=== PATIENT | male | born 1965 | race Caucasian/White ===

== ENCOUNTER → 2020-06-24 07:11 | Outpatient (CLI) | payer MEDICAID, SELFPAY ==
--- NOTE | 2020-06-24 07:34 | RAD_ITS ---
STUDY: X-RAY - LUMBAR SPINE REASON FOR EXAM: Male, 55 years old. low back pain, bilateral leg pain -- NKI TECHNIQUE: 3 view(s) of the lumbar spine were obtained. COMPARISON: None FINDINGS: Normal lumbar lordosis. There is no substantial scoliosis. There is a normal alignment of the vertebrae. Normal vertebral bodies and endplates. Moderate disc narrowing at L4-5 and L5-S1. Minimal narrowing at upper lumbar levels. Negative for substantial spondylitic endplate changes. The soft tissue structures are unremarkable. RAD/Lumbar Spine 2 or 3 Views IMPRESSION: Normal alignment of the lumbar spine without fracture, osteolytic or blastic bone lesion. Mild to moderate degenerative disc narrowing without extensive spondylitic endplate changes. Electronically Signed: Guillermina Alcala MD at 17:32 EDT , Service support ,
--- NOTE | 2020-06-24 07:35 | EKG12_ITS ---
Test Reason : ARRITYMIA Blood Pressure : / mmHG Vent. Rate : 106 BPM Atrial Rate : 106 BPM P-R Int : 160 ms QRS Dur : 108 ms QT Int : 372 ms P-R-T Axes : 063 058 069 degrees QTc Int : 494 ms Sinus tachycardia with frequent Premature ventricular complexes Incomplete left bundle branch block Borderline ECG Confirmed by TRENT DIAZ, AZUL ([id number]), industrial editor ALEX GIL ([id number]) on 06/29/2020 1:57:53 PM Referred By: Sarai [facility] Confirmed By:AZUL NEWMAN MD
[2020-06-24 08:21] LABS: Absolute Lymphocyte Count 2.49 X10^3/uL (0.83-4.51); Absolute Neutrophil Count 2.9 X10^3/uL (2.0-7.7); Basophil# 0.05 X10^3/uL; Basophil% 0.8 % (0-1); Eosinophil# 0.07 X10^3/uL; Eosinophils% 1.1 % (0-5); Hematocrit 46.8 % (40-54); Hemoglobin 16.3 g/dL (13.0-16.5); Lymphocyte # 2.49 X10^3/ul (4.0); Lymphocyte % 39.3 % (19-41); Mean Corp Hgb Conc 34.8 g/dL (32-36); Mean Corpuscular Hgb 30.4 pg (27.0-32.0); Mean Corpuscular Volume 87.2 fL (80-94); Mean Platelet Vol. 11.5 fl (6.2-12.0); Monocyte# 0.81 X10^3/uL; Monocyte% 12.8 % (0-10); NRBC Flagged by Analyzer 0 % (0-5); Neutrophil % 45.7 % (47-70); Platelet Count 278 K/mm3 (150-450); RBC Distribution Width CV 12.3 % (11.6-14.6); RBC Distribution Width SD 39.1 fl (35.1-43.9); Red Blood Count 5.37 M/mm3 (4.6-6.2); White Blood Count 6.3 K/mm3 (4.4-11.0)
[2020-06-24 08:36] LABS: Hemoglobin A1c 11.7 % (3.8-5.6)
[2020-06-24 08:40] LABS: Vitamin D,25 Hydroxy 36.9 ng/mL
[2020-06-24 08:46] LABS: ALB/GLOB Ratio 1.1 RATIO (0.9-2.4); AST(SGOT) 16 U/L (15-37); Alanine Aminotransfer ALT/SGPT 25 U/L (16-61); Albumin, Serum 3.8 g/dL (3.2-5.0); Alkaline Phosphatase 78 U/L (45-117); Anion Gap 5 (5-15); BUN 10 mg/dL (7-18); BUN/Creat Ratio 13.4 RATIO (10-20); Calcium,Total 8.8 mg/dL (8.5-10.1); Chloride 96 mmol/L (98-107); Cholesterol 208 mg/dL (200); Creatinine, Serum 0.74 mg/dL (0.70-1.30); EST Glomerular Filtration Rate 116 mL/min (>60); Est Glom Filt Rate - Afr Amer 140 mL/min (>60); Globulin 3.5 g/dL (2.2-4.2); Glucose 297 mg/dL (74-106); High Density Lipoprotein 50 mg/dL; Potassium 3.7 mmol/L (3.5-5.1); Protein, Total 7.3 g/dL (6.4-8.2); Sodium Level 131 mmol/L (136-145); T4 Free Direct 1.42 ng/dL (0.76-1.46); Thyroid Stim Hormone (TSH) 1.83 uIU/mL (0.358-3.74); Triglycerides 119 mg/dL; Very Low Density Lipoprotein 24 mg/dL (5-40)
== END ==
PROVIDERS: Nurse Practitioner Family
DX: M54.5 Low back pain (principal); K59.00 Constipation, unspecified; R10.84 Generalized abdominal pain; I49.9 Cardiac arrhythmia, unspecified
CPT/HCPCS: 36415; 72100; 80053; 80061; 82306; 83036; 84439; 84443; 85025; 93005

== ENCOUNTER → 2020-07-10 12:38 | Outpatient (CLI) | payer MEDICAID, SELFPAY ==
[2020-07-01 14:14] VITALS: BMI 21.4
--- NOTE | 2020-07-10 12:39 | ECHOD_ITS ---
Reason For Study: Arrhythmia Procedure This was a 2D Doppler, Color Flow transthoracic echocardiogram. Exam performed in department. Left Ventricle Normal left ventricle. The estimated ejection fraction is 30 %. Stage 1 diastolic dysfunction. There is moderate to severe global hypokinesis of the left ventricle. Right Ventricle Normal RV size. Normal systolic function. Atria Normal left atrium. Normal right atrium. Mitral Valve Normal mitral valve. Mild (1+) eccentric mitral valve insufficiency. Tricuspid Valve Normal tricuspid valve. Mild tricuspid valve insufficiency. Pulmonary artery systolic pressure is 28 mmHg. Aortic Valve Normal aortic valve. Trisinus/trileaflet aortic valve. Great Vessels Normal aortic root. The pulmonary artery is normal size. Normal inferior vena cava. Pericardium/Pleural No pericardial effusion. MMode/2D Measurements & Calculations LVIDd: 5.6 cm IVSd: 1.2 cm Ao root diam: 3.7 cm LVIDs: 4.6 cm LVPWd: 0.88 cm LA dimension: 3.4 cm RVDd: 2.5 cm FS: 18.7 % LAV(MOD-bp): 41.5 ml LA A4 area: 14.1 cm2 RA A4 area: 9.2 cm2 LAV(MOD-bp) Indexed: 23.6 ml/m2 LAV(MOD-sp2): 49.9 ml LAV(MOD-sp4): 31.8 ml Time Measurements MV dec time: 0.20 sec Doppler Measurements & Calculations MV E max michael: 78.5 cm/sec MV V2 max: 118.1 cm/sec MV P1/2t max michael: 61.6 cm/sec MV A max michael: 117.6 cm/sec MV max P.6 mmHg MV P1/2t: 126.0 msec MV E/A: 0.67 MV V2 mean: 56.1 cm/sec MV mean P.6 mmHg MV dec slope: 143.2 cm/sec2 MV V2 VTI: 31.4 cm MVA(P1/2t): 1.7 cm2 Ao V2 max: 156.8 cm/sec LV V1 max: 78.3 cm/sec PA V2 max: 96.4 cm/sec Ao max P.9 mmHg LV V1 max P.5 mmHg TR max michael: 242.4 cm/sec TR max P.5 mmHg Interpretation Summary Normal left ventricle. The estimated ejection fraction is 30 %. Stage 1 diastolic dysfunction. Structurally normal valves. Ordering Physician: Aftab Ryder Referring Physician: Aftab Ryder Performed By: Myles Garcia RCS
== END ==
PROVIDERS: Referring Provider Internal Medicine Cardiovascular Disease; Visit Provider Internal Medicine Cardiovascular Disease
DX: I49.3 Ventricular premature depolarization (principal)
CPT/HCPCS: 93225; 93226; 93306

== ENCOUNTER → 2020-09-16 06:32 | Outpatient (CLI) | payer MEDICAID, SELFPAY ==
[2020-08-14 10:26] VITALS: BMI 21.2
[2020-09-01 08:54] VITALS: BMI 20.7
[2020-09-15 09:07] VITALS: BMI 21.4
--- NOTE | 2020-09-16 09:36 | STRESSREP ---
Stress Test Report Exercise myocardial perfusion stress test. 55-year-old man with a history of chest pain. Stress protocol: Resting EKG demonstrates normal sinus rhythm with a rate of 86 bpm frequent premature ventricular complexes noted in the pattern of bigeminy present. Resting blood pressure was 108 over 7 mmHg. The patient exercised according to regular Ion protocol for a total duration of 6 minutes. The maximum heart rate was 151 bpm which was 92% of maximum predicted heart rate the maximum workload was 7 metabolic equivalents. Patient maintained sinus rhythm throughout the recording with frequent premature ventricular complexes. During recovery there were also premature ventricular complexes which appear to be monomorphic. There were no ST or T wave changes noted to suggest ischemia. The peak blood pressure was 148/88 mmHg. The test was terminated due to the target heart rate being achieved. Myocardial perfusion protocol. 11.6 mCi of technetium 99m sestamibi was injected at rest. Patient exercised according to regular Ion protocol for 6 minutes at peak exercise 34.0 mCi of technetium 99m sestamibi was injected stress images were obtained stress and rest images were reconstructed and compared in the short axis vertical long horizontal long axis. Gated images were also obtained Perfusion SPECT analysis: Review of the stress images demonstrate normal uptake of tracer noted in all areas of the myocardium the resting images similar demonstrate normal uptake of tracer noted in all areas of the myocardium. The apex on the stress and rest images appears to demonstrate reduced perfusion. No obvious reversibility is noted suggest ischemia. Gated SPECT analysis: The gated ejection fraction is noted to be 29%. Conclusion: Cardiomyopathy present. No obvious ischemia present. Previous apical infarct cannot be completely excluded.
== END ==
PROVIDERS: Referring Provider Internal Medicine Cardiovascular Disease; Visit Provider Internal Medicine Cardiovascular Disease
DX: I42.9 Cardiomyopathy, unspecified (principal); R07.9 Chest pain, unspecified
CPT/HCPCS: 78452; 93017; A9500; A4216

== ENCOUNTER → 2020-09-21 09:30 | Outpatient (CLI) | payer MEDICAID, SELFPAY ==
[2020-09-15 09:07] VITALS: BMI 21.4
== END ==
PROVIDERS: Referring Provider Physician Assistant Medical; Visit Provider Physician Assistant Medical
DX: I42.0 Dilated cardiomyopathy (principal); I49.3 Ventricular premature depolarization
CPT/HCPCS: 93225; 93226

== ENCOUNTER → 2020-09-22 10:44 | Outpatient (CLI) | payer MEDICAID, SELFPAY ==
[2020-09-15 09:07] VITALS: BMI 21.4
--- NOTE | 2020-09-22 10:45 | ECHOD_ITS ---
Reason For Study: CHF Procedure This was a 2D Doppler, Color Flow transthoracic echocardiogram. The study was technically difficult. Due to arrhythmia. Exam performed in department. Left Ventricle Normal LV size. The estimated ejection fraction is 35 %. Stage 1 diastolic dysfunction. No regional wall motion abnormalities noted. There is moderate to severe global hypokinesis of the left ventricle. Right Ventricle Normal RV size. Normal systolic function. Atria Normal left atrium. Normal right atrium. Mitral Valve Normal mitral valve. Tricuspid Valve Normal tricuspid valve. Mild tricuspid valve insufficiency. Pulmonary artery systolic pressure is 24 mmHg. Aortic Valve Trisinus/trileaflet aortic valve. Pulmonic Valve Normal pulmonic valve. Great Vessels Normal aortic root. The pulmonary artery is normal size. Pericardium/Pleural No pericardial effusion. MMode/2D Measurements & Calculations LVIDd: 5.5 cm IVSd: 0.90 cm Ao root diam: 3.7 cm LVIDs: 4.5 cm LVPWd: 0.90 cm RVDd: 2.8 cm FS: 18.4 % LAV(MOD-bp): 40.5 ml LA A4 area: 13.5 cm2 LA dimension(2D): 3.6 cm LAV(MOD-bp) Indexed: 23.0 ml/m2 LAV(MOD-sp2): 39.6 ml LAV(MOD-sp4): 36.3 ml RA A4 area: 10.5 cm2 Time Measurements MV dec time: 0.22 sec Doppler Measurements & Calculations MV E max michael: 71.6 cm/sec Ao V2 max: 140.9 cm/sec LV V1 max: 88.6 cm/sec MV A max michael: 119.3 cm/sec Ao max P.2 mmHg LV V1 max P.3 mmHg MV E/A: 0.60 PA V2 max: 95.2 cm/sec TR max michael: 232.3 cm/sec TR max P.6 mmHg Interpretation Summary Normal LV size. The estimated ejection fraction is 35 %. Stage 1 diastolic dysfunction. Mild tricuspid valve insufficiency. Pulmonary artery systolic pressure is 24 mmHg. Compared to prior study, there is no significant change. Ordering Physician: Marcy Orta Referring Physician: [facility] Performed By: Cathie Smart, ANNA, RVT
== END ==
PROVIDERS: Referring Provider Physician Assistant Medical; Visit Provider Physician Assistant Medical
DX: I42.0 Dilated cardiomyopathy (principal); I49.3 Ventricular premature depolarization
CPT/HCPCS: 93306

== ENCOUNTER 2020-09-23 09:30 | Outpatient (RCR) | payer MEDICAID, SELFPAY ==
[2020-09-01 08:54] VITALS: BMI 20.7
== END 2020-09-28 23:59 ==
LOC: DC 09:30
PROVIDERS: Visit Provider Surgery
DX: Z71.3 Dietary counseling and surveillance (principal); E11.65 Type 2 diabetes mellitus with hyperglycemia
CPT/HCPCS: 97802; G0108

== ENCOUNTER 2020-09-28 08:04 | Day surgery (SDC) | payer MEDICAID, SELFPAY ==
[2020-09-15 09:07] VITALS: BMI 21.4
--- NOTE | 2020-09-21 09:35 | RAD_ITS ---
EXAM DESCRIPTION: PA and lateral chest CLINICAL HISTORY: 55 years Male, pre op for heart cath next monday, pt states former smoker COMPARISON: None Mild dextroscoliosis is noted of the mid thoracic spine. The rest of the thorax is intact. . The heart and mediastinum appear to be within normal limits The lungs appear to be well aerated without evidence of pneumonic consolidation or pleural effusion. RAD/Chest PA and Lateral IMPRESSION: No acute pathology. Electronically Signed: Bhavik Osman, at 13:22 EST Tel , Service support ,
[2020-09-21 10:20] LABS: Absolute Lymphocyte Count 2.12 X10^3/uL (0.83-4.51); Absolute Neutrophil Count 3.5 X10^3/uL (2.0-7.7); Basophil# 0.05 X10^3/uL; Basophil% 0.8 % (0-1); Eosinophil# 0.06 X10^3/uL; Eosinophils% 0.9 % (0-5); Hematocrit 44.2 % (40-54); Hemoglobin 15.2 g/dL (13.0-16.5); Lymphocyte # 2.12 X10^3/ul (4.0); Lymphocyte % 32.6 % (19-41); Mean Corp Hgb Conc 34.4 g/dL (32-36); Mean Corpuscular Hgb 30.5 pg (27.0-32.0); Mean Corpuscular Volume 88.6 fL (80-94); Mean Platelet Vol. 9.9 fl (6.2-12.0); Monocyte# 0.82 X10^3/uL; Monocyte% 12.6 % (0-10); NRBC Flagged by Analyzer 0 % (0-5); Neutrophil # 3.45 X10^3/uL (2.7-7.7); Neutrophil % 52.9 % (47-70); Platelet Count 271 K/mm3 (150-450); RBC Distribution Width CV 12.5 % (11.6-14.6); RBC Distribution Width SD 40.6 fl (35.1-43.9); Red Blood Count 4.99 M/mm3 (4.6-6.2); White Blood Count 6.5 K/mm3 (4.4-11.0)
[2020-09-21 10:56] LABS: Anion Gap 4 (5-15); BUN 14 mg/dL (7-18); BUN/Creat Ratio 20.7 RATIO (10-20); Calcium,Total 9.6 mg/dL (8.5-10.1); Chloride 99 mmol/L (98-107); Creatinine, Serum 0.68 mg/dL (0.70-1.30); EST Glomerular Filtration Rate 129 mL/min (>60); Est Glom Filt Rate - Afr Amer 156 mL/min (>60); Glucose 132 mg/dL (74-106); Potassium 4.1 mmol/L (3.5-5.1); Sodium Level 134 mmol/L (136-145)
[2020-09-25 07:14] VITALS: BMI 21.4
--- NOTE | 2020-09-28 07:00 | HP_ITS ---
HPI HPI History of Present Illness Details: This is a 55-year-old gentleman that recently established with us for frequent palpitations. He underwent an echocardiogram which demonstrated an ejection fraction of 30%. 24-hour Holter monitor demonstrated 31% PVC burden. Patient metoprolol was switched to Coreg he was also started on lisinopril. His coreg has been titrated up. He was scheduled to have a stress test done, however this was cancelled d/t him eating prior. This is rescheduled for tomorrow. In talking with patient he states that he has been feeling fatigued for about 6 months. He does tell me that over the last 1 to 2 months that he has had chest heaviness. Is not brought on by anything in particular. He cannot tell me that if it is relieved by anything in particular. He does not have any swelling. He does occasionally have shortness of breath with exertion. He does occasionally have palpitations. He does occasionally have lightheadedness. He denies any near-syncope or syncope. He does have pain in his back and legs. He is scheduled for a colonoscopy next month. He tells me that his blood sugars have improved since starting metformin. Intake Vital Signs 09/15/20 Height 5 ft 8 in 09/15/20 Weight: 141 lb 09/15/20 BMI 21.4 09/15/20 BP 110/84 H 09/15/20 Pulse 78 Intake Visit Reasons: 4-6 wk f/up Allergies No Known Allergies Allergy (Verified 09/15/20 09:07) Medications metformin 500 mg tablet 500 mg PO BID 07/01/20 [History Confirmed 09/15/20] lisinopril 5 mg tablet 5 mg PO DAILY #30 tab 07/14/20 [Rx Confirmed 09/15/20] aspirin 81 mg tablet,delayed release 81 mg PO DAILY 08/14/20 [History Confirmed 09/15/20] carvedilol 25 mg tablet 25 mg PO BID #60 tab 09/15/20 [Rx Confirmed 09/15/20] [facility] Medical History Cardiomyopathy (Acute) Fatigue (Acute) Incomplete left bundle branch block (Acute) Frequent unifocal premature ventricular contractions (Acute) Type 2 diabetes mellitus (Chronic) Hyperlipidemia (Acute) Spinal stenosis (Chronic) Surgical History History of eye surgery (Resolved) Family History Mother Colon cancer Diabetes Brother Cancer testicle Father Heart disease cardiomyopathy Social History (Updated 09/15/20 @ 09:40 by Marcy QUINN, PA) Smoking Status: Former smoker quit date: 10/30/99 caffeine: Yes (4) Type: carbonated beverages, coffee ROS Const Const: Positive for fatigue; negative for weakness, fever(s) or headache(s) Eyes Eyes: Negative for blind spots, loss of peripheral vision or transient loss of vision ENT ENT: Negative for headache(s), dizziness, tinnitus or Nosebleed/epistaxis Cardio Chest Pain: No Edema: None Muscle aches with walking: None Resp Respiratory: Positive for SOB with activity; negative for SOB at rest, SOB orthopnea\SOB lying down or Cough GI GI: Negative nausea, vomiting, heartburn or vomiting blood/hematemesis : Negative for hematuria Musc Musc: Negative for muscle aches/ myalgia Neuro Neuro: Positive for lightheadedness; negative for dizziness, near syncope, syncope, orthostatic symptoms, headache(s) or weakness Slava Hematologic/Lymphatic: Negative for easy bleeding Endo Endo: Positive for fatigue Cardiology Exam Const Appearance: cooperative, no acute distress and well developed Orientation: alert, awake and oriented x3 Head Head: normocephalic and atraumatic Mouth: moist mucous membranes Eyes General: appearance normal, both eyes and all related structures Conjunctivae: conjunctivae normal Pupils: PERRL EOM: EOM intact bilaterally Neck Neck: normal visual inspection, no lymphadenopathy and no JVD Carotids: Negative bruit Neck Mass: Negative Neck mass Chest Chest inspection: normal inspection of the chest and symmetric chest movement Auscultation: Bilateral: Clear to Auscultation Cardio Palpation: normal PMI Rate: regular rate Rhythm: regular rhythm and ectopic beats Heart sounds: S1 normal and S2 normal; negative rub, gallop or murmur GI GI: normal to inspection, soft, no hepatosplenomegaly and bowel sounds present; negative tender Neuro General: alert, awake, oriented x3, CN's II-XI intact bilaterally and moves all extremities Extremities Pulses: Normal: Right Posterior Tibial Pulse, Left Posterior Tibial Pulse, Right Radial Pulse, Left Radial Pulse Lower Extremity Edema: None: Bilateral Psych Psychological: normal affect Assessment & Plan 1. Frequent unifocal premature ventricular contractions I49.3 Plan Will increase coreg to 25 mg twice a day, will repeat a HM in a few weeks to see if this helped with PVC burden. Orders Orders: Cardiac Holter Monitor, Set-Up 6 Weeks Cardiac Holter Monitor/Day 6 Weeks Echo Complete 6 Weeks 2. Dilated cardiomyopathy I42.0 Plan Patient does have a decreased ejection fraction of 30%. This could be related to his high PVC burden. Although it could also be related to ischemia. Would like to proceed with a stress test to evaluate for underlying ischemia as he is fatigued and does have chest pain. Will increase his coreg to help optimize his medications. In a few weeks would like to repeat his echocardiogram to re-evaluate his LV function. If this still remains low may need to consider prophylatic ICD placement. Orders Orders: Cardiac Holter Monitor, Set-Up 6 Weeks Cardiac Holter Monitor/Day 6 Weeks Echo Complete 6 Weeks Plan Detail Other Medications Changed: From: carvedilol must administer with a meal/food 12.5 mg PO BID 60 tabs 10RF To: carvedilol must administer with a meal/food 25 mg PO BID 60 tabs 10RF Follow Up 3 Months (SANITARY AIDE) Coding Level of Care Code Off vis,est,level 4 Diagnoses Frequent unifocal premature ventricular contractions I49.3 Dilated cardiomyopathy I42.0 ??Cardiomyopathy type: dilated Coding Level of Care Code Off vis,est,level 4 Diagnoses Frequent unifocal premature ventricular contractions I49.3 Dilated cardiomyopathy I42.0 ??Cardiomyopathy type: dilated Supplemental Info Supplemental Information Echocardiogram June 2020 demonstrates:Normal left ventricle. The estimated ejection fraction is 30 %. Stage 1 diastolic dysfunction. Structurally normal valves. 24-hour Holter monitor demonstrated average heart rate 87 bpm, minimum 71 bpm, maximum 112. He did have 31% PVCs. Labs LDL Cholesterol 134 mg/dL (0-130) H 06/24/20 HDL Cholesterol 50 mg/dL (40-) 06/24/20 Triglycerides 119 mg/dL (-199) 06/24/20 VLDL Cholesterol 24 mg/dL (5-40) 06/24/20 Diagnostics Electrocardiogram 08/14/20 Echocardiogram 07/10/20
--- NOTE | 2020-09-28 09:56 | CL.D_ITS ---
Patient Name: NISA MOFFETT Study Date: 09/28/2020 Performing: Aftab Ryder MD Ht: 68.11 inches 173 cm : 1965 Wt: 141.1 lbs 64 kg Age: 55 Gender: male BSA: 1.76 PROCEDURE(S) PERFORMED [id number]/LV CLINICAL PROFILE AND INDICATIONS Indications: Cardiac Arrythmia Heart Failure: None Stress/Imaging Stress/Image Study Performed: No CAD Presentations: Symptom unlikely to be ischemic. CONCLUSIONS Non obstructive coronary arteries RECOMMENDATIONS Medical therapy and consider VT ablation DESCRIPTION OF PROCEDURE The patient arrived to the procedure lab. The risks and benefits of the procedure as well as a full d escription of our services here and current unavailability of surgical backup were fully explained to the patient and/or their significant other prior to the catheterization. The Timeout was completed, verifying the correct patient and procedure. The patient's procedural site was prepped and draped in the usual fashion. Local anesthetic was given subcutaneously to right radial region with Lidocaine 2% . Using a modified Seldinger technique, arterial access was obtained via the right radial artery, a 6 Fr sheath was inserted. Left Coronary Artery selective angiography was performed in multiple views u sing a 5 Fr. 4.0 [place] catheter. Right Coronary Artery selective angiography was then performed in mu ltiple views using a 5 Fr. 4.0 [place] catheter. Left Ventriculography was performed in TA projection using a 5 Fr. [place] catheter. LV to AO pullback pressures were then recorded.The arterial sheath was pulled and a TR Band was applied for hemostasis w/ 10ml air CORONARY ANGIOGRAPHY DOMINANCE: Right Dominant LEFT HEART ASSESSMENT Left Ventricular Ejection Fraction: by LV Gram 35 % Global Hypokinesis - Moderate Depressed Left Ventricular systolic function LEFT MAIN: Angiographically normal LEFT ANTERIOR DESCENDING ARTERY: Mild luminal irregularities less than 30% CIRCUMFLEX ARTERY: No significant disease noted RIGHT CORONARY ARTERY: No significant disease noted COMPLICATIONS No Complications PROCEDURE MEDICATIONS Versed 1 mg IV Fentanyl 50 mcg IV Oxygen: 2 L/min via nasal cannula Heparin diluted in 23cc Heparinized saline. Patient given 10cc IA of this solution. 1/2 of cocktail given per Dr Ryder 09/28/2020 09:30:34 Verapamil 2.5mg, Ntg 100mcgs, 2000 units of Heparin diluted in 23cc Heparinized saline. Patient give n 10cc IA of this solution. 1/2 of cocktail given per Dr Ryder 09/28/2020 09:30:34 SUMMARY OF HEMODYNAMIC DATA Time AIR REST ECG 08:21:44 AO 94/51 (67) SA 09:31:39 LV 97/2, 5 09:40:37 LV 97/1, 3 09:40:44 LV 90/4, 5 09:41:23 LVp 91/-1, 5 09:41:29 AOp 101/57 (75) 09:41:34 Signed By Aftab Ryder MD On 09/28/2020 9:55:33 AM Aftab Ryder MD
== END 2020-09-28 11:20 | disposition home or self-care (01) ==
LOC: CLSP 08:04
PROVIDERS: Referring Provider Internal Medicine Cardiovascular Disease; Visit Provider Internal Medicine Cardiovascular Disease
DX: I49.3 Ventricular premature depolarization (principal); I42.0 Dilated cardiomyopathy; Z79.82 Long term (current) use of aspirin; Z79.84 Long term (current) use of oral hypoglycemic drugs; Z87.891 Personal history of nicotine dependence; E11.9 Type 2 diabetes mellitus without complications
CPT/HCPCS: 71046; 80048; 85025; 93458; 99152; 99153; Q9967; C1769; C1894

== ENCOUNTER 2020-10-05 07:09 | Day surgery (SDC) | payer MEDICAID, SELFPAY ==
[2020-09-01 08:54] VITALS: BMI 20.7
[2020-09-25 07:14] VITALS: BMI 21.4
--- NOTE | 2020-10-05 | COLBX_PTH ---
PATIENT: NISA MOFFETT LOC: EN U#:[id number] AGE/SX: 55/M ROOM: RE10/05/[address]: Dr. Darshan Schwarz MD : 1965 BED: DIS: 10/05/2020 SPEC #: [id number] RECD: 10/05/20 12:30 STATUS: STELLA AMANUEL #: [id number] AJIT: 10/05/20 00:[address]: Darshan Schwarz DEPT: SURGICAL PATHOLOGY RECD BY: Josr Dixon ENTERED: 10/05/20 12:31 SP TYPE: COLON BX OTHR DR: Sarai [facility] Tissues: Sigmoid colon biopsy Procedures: Surgery Specimen Level IV HEADER OPERATION: Colonoscopy (MAC) PRE-OP DIAGNOSIS: Screening TISSUE SUBMITTED: Sigmoid polyp MICROSCOPIC DIAGNOSIS Sigmoid polyp, biopsy: Suggestive of inflammatory polyp. See comment. AM:jovon 10/06/20 COMMENT Adenomatous change is not identified. Clinical correlation is suggested. MICROSCOPIC DESCRIPTION Slides are reviewed. GROSS DESCRIPTION Received in fixative is one container labeled with the patient's name and designated sigmoid polyp. The specimen consists of two irregular fragments of light martinez soft tissue that in aggregate measure 0.6 x 0.6 x 0.1 cm. The specimen is totally submitted in one cassette. / AM:jovon 10/05/20 TC:5 CPT: 10877
--- NOTE | 2020-10-05 07:03 | HP_ITS ---
Intake Vital Signs 09/01/20 Height 5 ft 8 in 09/01/20 Weight: 136 lb 7 oz 09/01/20 BMI 20.7 09/01/20 BP 105/68 09/01/20 Blood Pressure Location Rt brachial 09/01/20 Position Sitting 09/01/20 Respiration 20 H 09/01/20 Pulse 92 09/01/20 Pulse Source NIBP 09/01/20 Temp 97.5 F L 09/01/20 Temp Source Temporal 09/01/20 Pulse Oximetry (%) 100 09/01/20 Oxygen Delivery Method room air Intake Visit Reasons: CSCOPE Chief Complaint: colonoscopy Clinical Resource Coordinator Required: No Is patient in pain?: No Allergies No Known Allergies Allergy (Verified 09/01/20 08:54) Medications metformin 500 mg tablet 500 mg PO BID 07/01/20 [History Confirmed 09/01/20] lisinopril 5 mg tablet 5 mg PO DAILY #30 tab 07/14/20 [Rx Confirmed 09/01/20] carvedilol 12.5 mg tablet 12.5 mg PO BID #60 tab 07/28/20 [Rx Confirmed 09/01/20] aspirin 81 mg tablet,delayed release 81 mg PO DAILY 08/14/20 [History Confirmed 09/01/20] PFSH Medical History Fatigue (Acute) Incomplete left bundle branch block (Acute) Frequent unifocal premature ventricular contractions (Acute) Type 2 diabetes mellitus (Chronic) Hyperlipidemia (Acute) Spinal stenosis (Chronic) Surgical History History of eye surgery (Resolved) Family History Mother Colon cancer Diabetes Brother Cancer testicle Father Heart disease cardiomyopathy Social History (Updated 09/02/20 @ 08:[address] Darshan Schwarz MD) Smoking Status: Former smoker quit date: 10/30/99 caffeine: Yes (4) Type: carbonated beverages, coffee HPI HPI Surgical H&P: Yes HPI: NISA MOFFETT, is a 55 M who presents to the office today for Evaluation for endoscopy. Patient has never had a colonoscopy. He has had a mother who had reported malignancy in her small intestines please not quite sure if this was colon cancer or small intestinal cancer. He also has had a Brother with testicular cancer. Patient has not been having any abdominal pains he is not noticing any blood in his stool moves his bowels on a regular basis ROS General General: Yes weight change and fatigue; no appetite, colon cancer, breast cancer or weakness HEENT HEENT: Yes eye surgery; no difficulty swallowing, eye injury, swollen glands or hoarseness Endo Endocrine: Yes diabetes mellitus; no thyroid disease, thyroid cancer, Hair loss, heat intolerance or cold intolerance Musc Musculoskeletal: Yes back problems and arthritis; no rheumatoid arthritis, gout or joint pain Cardio Cardiovascular: No murmur, pacemaker, heart disease, atrial fibrillation, high blood pressure, heart attack, heart stent, palpitations, shortness of breat with exertion or chest pain Psych Psychiatric: Yes anxiety; no depression or hearing voices Resp Respiratory: Yes shortness of breath, No sleep apnea, No cough, No COPD, No asthma, No emphysema, No wheezing Gastro Gastrointestinal: Yes abdominal pain, Yes nausea or vomiting, No diarrhea, Yes constipation, No blood in stool, No acid reflux, No hemorrhoids, No ulcers, No gallbladder problem, No black,tarry stools Slava Hematologic: No blood thinners, No blood disorders, No bleeding, No anemia, No blood clots Neuro Neurologic: No weakness Exam Const General: no acute distress, well developed, well hydrated Orientation: oriented to person, oriented to place, oriented to time [facility] Head: normocephalic, atraumatic Ears: external ears normal Mouth: moist mucous membranes Eyes Sclera: sclerae normal Pupils: normal by confrontation Neck Neck: no lymphadenopathy noted Neck mass: No Thyroid: thyroid normal, symmetrical Chest Chest palpation & inspection: normal inspection of the chest Resp Effort & Inspection: normal respiratory effort Auscultation: clear to auscultation bilaterally Percussion: percussion normal Cardio Rate: regular rate Rhythm: regular rhythm Heart Sounds: no murmurs GI Palpation: soft, no hepatosplenomegaly, no masses, nontender Rectal Exam: other Other: Rectal exam deferred. Extrem General: normal to inspection, no clubbing, cyanosis or edema Assessment & Plan Problems 1. Encounter for screening colonoscopy Z12.11 Plan I have discussed the above with the patient. I have offered the patient colonoscopy for evaluation. I have explained the risks/benefits of the procedure and described the procedure. I have discussed the risks with the patient, including but not limited to: infection, bleeding, perforation of the GI tract requiring emergency surgery, inability to complete the procedure, injury to any internal organs, complications of anesthesia, etc. - the patient understands and agrees to proceed. I have answered all the patient's questions to the patient's satisfaction and the patient has no further questions. The patient has been given instructions for the colon cleansing preparation. Orders Orders: Colonoscopy 09/01/20 Coding Level of Care Code Off vis,new,level 3 Diagnoses Encounter for screening colonoscopy Z12.11 COVID (Procedure Consent) Procedure Criteria Procedure Criteria: Yes Elective The surgeon/proceduralist and patient have discussed in detail the risk of exposure to and/or potential harm posed by the COVID-19 virus with having a surgery/procedure at this time versus the risk of? delaying the surgery/procedure. It is not possible to know either the risk of delaying the surgery or procedure or chance of getting an infection with perfect accuracy, but a joint decision was made between the patient and the surgeon/proceduralist ?to proceed at this time with the scheduled surgery/procedure as indicated on the consent form. I have re-examined the patient. There are no clinical changes since date of exam.
[2020-10-05 07:29] VITALS: BP 118/90; PULSE 91; RESP 15; TEMP 36.9; O2SAT 99; BMI 21.4
[2020-10-05] MEDS: Lactated Ringers 1,000 ML 100 ML IV (07:38)
[2020-10-05 08:01] LABS: Bedside Glucose 133 mg/dL (70-110)
--- NOTE | 2020-10-05 08:39 | OP.COLON_ITS ---
Patient Name: Juan Kasper Procedure Date: 10/05/2020 8:04 AM Date of : 1965 Age: 55 Procedure: Colonoscopy Indications: Screening for colorectal malignant neoplasm Providers: Darshan Schwarz MD Referring MD: Sarai Tristan [facility] Medicines: See the Anesthesia note for documentation of the administered medications Patient Profile: This is a 55 year old male. Refer to note in patient chart for documentation of history and physical. Last Colonoscopy: none. The patient's first colonoscopy is today. Complications: No immediate complications. Procedure: Pre-Anesthesia Assessment: - Prior to the procedure, a History and Physical was performed, and patient medications and allergies were reviewed. The patient's tolerance of previous anesthesia was also reviewed. The risks and benefits of the procedure and the sedation options and risks were discussed with the patient. All questions were answered, and informed consent was obtained. Prior Anticoagulants: The patient has taken no previous anticoagulant or antiplatelet agents. ASA Grade Assessment: II - A patient with mild systemic disease. After reviewing the risks and benefits, the patient was deemed in satisfactory condition to undergo the procedure. After I obtained informed consent, the scope was passed under direct vision. Throughout the procedure, the patient's blood pressure, pulse, and oxygen saturations were monitored continuously. The colonoscope was introduced through the anus and advanced to the ileocecal valve. The colonoscopy was performed without difficulty. The patient tolerated the procedure well. The quality of the bowel preparation was good. Scope In: 8:11:56 AM Scope Withdrawal Time 0 hours 13 minutes 37 seconds Scope Out: 8:31:55 AM Total Procedure Duration Time 0 hours 19 minutes 59 seconds Findings: A 5 mm polyp was found in the sigmoid colon. The polyp was sessile. The polyp was removed with a hot snare. Resection and retrieval were complete. Many small-mouthed diverticula were found in the sigmoid colon and descending colon. No biopsies or other specimens were collected for this exam. The exam was otherwise without abnormality. Impression: - One 5 mm polyp in the sigmoid colon, removed with a hot snare. Resected and retrieved. - Diverticulosis in the sigmoid colon and in the descending colon. No specimens collected. - The examination was otherwise normal. Recommendation: - Discharge patient to home. - Resume previous diet. - Continue present medications. - Await pathology results. - Repeat colonoscopy in 5-10 years for surveillance. - Telephone my office for pathology results in 1 week. Procedure Code(s): --- Professional --- 04032, Colonoscopy, flexible; with removal of tumor(s), polyp(s), or other lesion(s) by snare technique Diagnosis Code(s): --- Professional --- Z12.11, Encounter for screening for malignant neoplasm of colon D12.5, Benign neoplasm of sigmoid colon K57.30, Diverticulosis of large intestine without perforation or abscess without bleeding CPT copyright 2017 [employer] [employer]. All rights reserved. The codes documented in this report are preliminary and upon funnel coater review may be revised to meet current compliance requirements. MD Darshan Cameron MD 10/05/2020 8:38:42 AM This report has been signed electronically. Number of Addenda: 0 Note Initiated On: 10/05/2020 8:04 AM
--- NOTE | 2020-10-05 08:39 | OP.CCLET_ITS ---
[facility]05/2020 [facility] for Juan Kasper [facility] This procedure was performed on Monday, October 05, 2020. My impressions and recommendations are as follows: Impressions : - One 5 mm polyp in the sigmoid colon, removed with a hot snare. Resected and retrieved. - Diverticulosis in the sigmoid colon and in the descending colon. No specimens collected. - The examination was otherwise normal. Recommendations : - Discharge patient to home. - Resume previous diet. - Continue present medications. - Await pathology results. - Repeat colonoscopy in 5-10 years for surveillance. - Telephone my office for pathology results in 1 week. My findings are described in the full procedure note, which is enclosed. If I can be of further assistance, please feel free to contact me at Doctor phone number(s): , Fax: [phone], Work: . Sincerely, MD Darshan Cameron MD 10/05/2020 8:38:42 AM This report has been signed electronically.
[2020-10-05 08:40] VITALS: BP 107/72; BP 118/90; PULSE 79; RESP 16; TEMP 36.5; O2SAT 99
[2020-10-05 08:50] VITALS: BP 108/59; BP 109/81; BP 118/90; PULSE 78; PULSE 79; RESP 16; O2SAT 100
[2020-10-05 08:51] VITALS: BP 116/74; BP 118/90; PULSE 82; RESP 16; TEMP 36.9; O2SAT 99
[2020-10-05 09:14] VITALS: BP 118/90
== END 2020-10-05 09:24 | disposition home or self-care (01) ==
LOC: EN 07:09 → AC 07:09
PROVIDERS: Visit Provider Surgery
PROC: 0DJD8ZZ Inspection of Lower Intestinal Tract, Via Natural or Artificial Opening Endoscopic (ICD-10-PCS; CPT 45378; principal; 2020-10-05 08:10)
DX: Z12.11 Encounter for screening for malignant neoplasm of colon (principal); D12.5 Benign neoplasm of sigmoid colon; K57.30 Diverticulosis of large intestine without perforation or abscess without bleeding; Z79.82 Long term (current) use of aspirin; Z79.84 Long term (current) use of oral hypoglycemic drugs; Z80.43 Family history of malignant neoplasm of testis; Z87.891 Personal history of nicotine dependence; E11.9 Type 2 diabetes mellitus without complications
CPT/HCPCS: 45385; 82962; 87426; 88305; C9803; J7120; J1610; J2405

== ENCOUNTER 2020-10-12 10:00 | Outpatient (RCR) | payer MEDICAID, SELFPAY ==
[2020-09-25 07:14] VITALS: BMI 21.4
== END 2020-10-29 23:59 ==
LOC: DC 10:00
PROVIDERS: Visit Provider Surgery
DX: Z71.3 Dietary counseling and surveillance (principal); E11.65 Type 2 diabetes mellitus with hyperglycemia
CPT/HCPCS: 97803

== ENCOUNTER 2020-11-09 10:35 | Outpatient (RCR) | payer MEDICAID, SELFPAY | END 2020-11-09 23:59 | disposition home or self-care (01) | LOC: DC 10:35 | PROVIDERS: Visit Provider Surgery | DX: E11.65 Type 2 diabetes mellitus with hyperglycemia (principal) | CPT/HCPCS: 97803 ==

== ENCOUNTER → 2020-12-30 09:16 | Outpatient (CLI) | payer MEDICAID, SELFPAY ==
[2020-12-15 08:44] VITALS: BMI 24.0
[2020-12-30 10:52] LABS: Absolute Lymphocyte Count 1.75 X10^3/uL (0.83-4.51); Absolute Neutrophil Count 3.8 X10^3/uL (2.0-7.7); Basophil# 0.06 X10^3/uL; Basophil% 0.9 % (0-1); Eosinophil# 0.01 X10^3/uL; Eosinophils% 0.2 % (0-5); Hemoglobin 14.9 g/dL (13.0-16.5); Lymphocyte # 1.75 X10^3/ul (4.0); Lymphocyte % 27.3 % (19-41); Mean Corp Hgb Conc 34.7 g/dL (32-36); Mean Corpuscular Hgb 31.4 pg (27.0-32.0); Mean Corpuscular Volume 90.7 fL (80-94); Mean Platelet Vol. 10.9 fl (6.2-12.0); Monocyte% 12.5 % (0-10); NRBC Flagged by Analyzer 0 % (0-5); Neutrophil # 3.77 X10^3/uL (2.7-7.7); Neutrophil % 58.8 % (47-70); Platelet Count 230 K/mm3 (150-450); RBC Distribution Width CV 12.4 % (11.6-14.6); RBC Distribution Width SD 41.1 fl (35.1-43.9); Red Blood Count 4.74 M/mm3 (4.6-6.2); White Blood Count 6.4 K/mm3 (4.4-11.0)
[2020-12-30 11:08] LABS: Hemoglobin A1c 6.2 % (3.8-5.6)
[2020-12-30 11:20] LABS: ALB/GLOB Ratio 1.1 RATIO (0.9-2.4); AST(SGOT) 15 U/L (15-37); Alanine Aminotransfer ALT/SGPT 22 U/L (16-61); Alkaline Phosphatase 64 U/L (45-117); Anion Gap 5 (5-15); BUN 10 mg/dL (7-18); BUN/Creat Ratio 13.5 RATIO (10-20); Calcium,Total 9.5 mg/dL (8.5-10.1); Chloride 99 mmol/L (98-107); Cholesterol 126 mg/dL (200); Creatinine, Serum 0.74 mg/dL (0.70-1.30); EST Glomerular Filtration Rate 116 mL/min (>60); Est Glom Filt Rate - Afr Amer 140 mL/min (>60); Globulin 3.5 g/dL (2.2-4.2); Glucose 130 mg/dL (74-106); High Density Lipoprotein 36 mg/dL; Protein, Total 7.5 g/dL (6.4-8.2); Sodium Level 136 mmol/L (136-145); Triglycerides 153 mg/dL; Very Low Density Lipoprotein 31 mg/dL (5-40)
== END ==
DX: E11.65 Type 2 diabetes mellitus with hyperglycemia (principal); I44.7 Left bundle-branch block, unspecified; E78.5 Hyperlipidemia, unspecified
CPT/HCPCS: 36415; 80053; 80061; 83036; 85025

== ENCOUNTER → 2021-01-15 14:30 | Outpatient (CLI) | payer MEDICAID, SELFPAY ==
[2020-12-15 08:44] VITALS: BMI 24.0
[2021-01-15 15:55] LABS: Microalbumin,Random Urine 37.7 mg/L (NO RANGE EST.)
[2021-01-18 15:46] LABS: PSA, Free 0.19 ng/mL
== END ==
PROVIDERS: Referring Provider Internal Medicine Cardiovascular Disease; Visit Provider Internal Medicine Cardiovascular Disease
DX: Z01.818 Encounter for other preprocedural examination (principal); E11.65 Type 2 diabetes mellitus with hyperglycemia; Z12.5 Encounter for screening for malignant neoplasm of prostate
CPT/HCPCS: 36415; 82043; 84153; 84154; 87635; C9803; U0002

== ENCOUNTER → 2021-02-08 07:22 | Outpatient (CLI) | payer MEDICAID, SELFPAY ==
[2020-12-15 08:44] VITALS: BMI 24.0
--- NOTE | 2021-02-08 07:23 | US_ITS ---
STUDY: ABDOMINAL ULTRASOUND REASON FOR EXAM: Male, 55 years old. LEFT UPPER ABD QUAD TENDERNESS TECHNIQUE: Transabdominal ultrasound was performed with real-time and static velasco scale imaging. TECHNICAL QUALITY: Adequate. COMPARISON: None. FINDINGS: Liver: The liver measures 14.7 cm. There is normal echogenicity of the liver. The bile ducts are within normal limits. There is hepatic color flow. The direction of portal flow is hepatopetal. There is no demonstrated mass lesion. Portal vein measurement: Gallbladder: Normal distended gallbladder. The gallbladder wall measures 2 mm. There is a negative sonographic Kellogg''s sign. There is no pericholecystic fluid. There are gallbladder polyps. Common Bile Duct (C.B.D.): The common bile duct measures 4 mm. Pancreas: There is nonvisualization of the pancreas.. Spleen: There is splenomegaly. The spleen measures 13.6 cm. Right Kidney: Normal size of the right kidney. The right kidney measures 12.1 cm. Normal renal cortex. The right cortex measures 2.3 cm. There is no demonstrated renal mass or cyst. There is no right hydronephrosis. Left Kidney: Normal size of the left kidney. The left kidney measures 11.9 cm. Normal renal cortex. The left cortex measures 1.6 cm. There is no demonstrated renal mass or cyst. There is no left hydronephrosis. Aorta: No abdominal aortic aneurysm. I.V.C.: The IVC is patent. There is no ascites. US/Abdomen Complete IMPRESSION: 1. Cholesterolosis. 2. Mild splenomegaly. Electronically Signed: Frankie Garces MD at 16:53 EDT Tel , Service support ,
== END ==
DX: R10.812 Left upper quadrant abdominal tenderness (principal)
CPT/HCPCS: 76700

== ENCOUNTER → 2021-02-24 09:55 | Outpatient (CLI) | payer MEDICAID, SELFPAY ==
[2020-12-15 08:44] VITALS: BMI 24.0
--- NOTE | 2021-02-24 10:20 | RAD_ITS ---
STUDY: X-RAY - THORACIC SPINE REASON FOR EXAM: Male, 55 years old. PAIN IN THORACIC SPINE TECHNIQUE: 2 view(s) of the thoracic spine were obtained. COMPARISON: None. FINDINGS: There is an increase in the normal thoracic kyphosis. There is no substantial scoliosis. There is demineralization of the thoracic spine with endplate spondylosis. There is multilevel disc space narrowing of the thoracic spine. The soft tissue structures are unremarkable. RAD/Thoracic Spine 2 Views IMPRESSION: Increased kyphosis. Multilevel disc space narrowing and spondylosis. Electronically Signed: Jose Mendoza MD at 15:16 EDT , Service support ,
[2021-02-24 10:58] LABS: Thyroid Stim Hormone (TSH) 1.67 uIU/mL (0.358-3.74)
[2021-02-25 11:33] LABS: H. Pylori Antibody (IgG) 0.66 (0.00-0.79)
== END ==
DX: R10.13 Epigastric pain (principal); M54.6 Pain in thoracic spine
CPT/HCPCS: 36415; 72070; 84439; 84443; 86677

== ENCOUNTER → 2021-04-26 09:42 | Outpatient (CLI) | payer MEDICAID, SELFPAY ==
[2021-03-17 13:52] VITALS: BMI 23.6
[2021-04-06 14:25] VITALS: BMI 23.1
--- NOTE | 2021-04-26 09:43 | ECHOD_ITS ---
Reason For Study: CARDIOMYOPATHY Procedure This was a 2D Doppler, Color Flow transthoracic echocardiogram. Exam performed in department. Left Ventricle Normal LV size. The estimated ejection fraction is 45 %. Mild global left ventricular systolic dysfunction. No regional wall motion abnormalities noted. Right Ventricle Normal RV size. Normal systolic function. Atria Normal left atrium. Normal right atrium. Mitral Valve Normal mitral valve. Tricuspid Valve Normal tricuspid valve. Aortic Valve Normal aortic valve. Trisinus/trileaflet aortic valve. Pulmonic Valve Normal pulmonic valve. Great Vessels Normal aortic root. The pulmonary artery is normal size. Normal inferior vena cava. Pericardium/Pleural No pericardial effusion. MMode/2D Measurements & Calculations LVIDd: 5.2 cm IVSd: 0.93 cm Ao root diam: 3.7 cm LVIDs: 4.0 cm LVPWd: 0.91 cm LA dimension: 3.8 cm FS: 22.5 % LAV(MOD-bp): 34.2 ml LA A4 area: 13.5 cm2 RA A4 area: 9.8 cm2 LAV(MOD-bp) Indexed: 18.8 ml/m2 LAV(MOD-sp2): 28.3 ml LAV(MOD-sp4): 31.5 ml Doppler Measurements & Calculations MV E max javed: 62.1 cm/sec Lat Peak E' Javed: 7.8 cm/sec Med Peak E' Javed: 6.0 cm/sec MV A max javed: 94.8 cm/sec E/E' lat: 8.0 E/E' med: 10.3 MV E/A: 0.66 Ao V2 max: 106.6 cm/sec LV V1 max: 76.0 cm/sec PA V2 max: 127.9 cm/sec Ao max P.5 mmHg LV V1 max P.3 mmHg ECHO/Echo Complete Interpretation Summary Normal LV size. The estimated ejection fraction is 45 %. Mild global left ventricular systolic dysfunction. Compared to previous study, the left ventricular systolic function has improved .. Ordering Physician: Aftab Ryder Referring Physician: [facility] Performed By: Cathie Smart, ANNA, RVT
== END ==
PROVIDERS: Referring Provider Internal Medicine Cardiovascular Disease; Visit Provider Internal Medicine Cardiovascular Disease
DX: I49.3 Ventricular premature depolarization (principal); I42.8 Other cardiomyopathies; E78.5 Hyperlipidemia, unspecified; I44.7 Left bundle-branch block, unspecified; Z98.890 Other specified postprocedural states
CPT/HCPCS: 93225; 93226; 93306

== ENCOUNTER 2021-05-31 12:00 | Outpatient (RCR) | payer MEDICAID, SELFPAY ==
[2021-04-06 14:25] VITALS: BMI 23.1
--- NOTE | 2021-04-28 09:57 | HP.PTEVAL_ITS ---
Patient's Visit Information NISA MOFFETT is a 55 year old M referred to Physical Therapy by Dr. John Estrada DO with a diagnosis of LUMBAR SPINE HERNIATED DISC. Date of Evaluation: 04/28/21 Physical Therapist: Colleen Ga PT, Cert MDT - Visit Plan Frequency: 2-3x /Week Duration: 4 Weeks Plan: *L FOOT DROP*. POSTURE CORRECTION/STRENGTHENING, INSTRUCTION IN APPROPRIATE BODY MECHANICS AND ACTIVITY MODIFICATIONS. DLS STARTING WITH A NEUTRAL SPINE PROGRESSING ROM TOLERATED. VERA LE ROM, STRETCHING AND STRENGTHENING. HEP INSTRUCTION. 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 Disability: NO. Present symptoms: TAILBONE PAIN. LOW BACK PAIN. VERA LE PAIN, NUMBNESS AND TINGLING L>R ALL THE WAY DOWN TO TOES. Present since: ABOUT 7 YEARS AGO WITH SIGNIFICANT INCREASE ABOUT A YEAR AGO. Pain Scale: WORST 6/10, LEAST 3/10. Currently: 3/10. Commenced as a result of: FELL OFF 4 FOOT LADDER ABOUT 20 YEARS AGO. Symptoms at onset: LOW BACK AND HIP PAIN. Worse: PROLONGED SITTING, PROLONGED WALKING, LYING DOWN. Better: MOVING AROUND. LEANING FORWARD IN SITTING. Disturbed sleep: YES. Previous history/Previous treatment: CHIROPRACTOR ABOUT 7 YEARS. MASSAGE THERAPY. PHYSICAL THERAPY AT [facility] FOR ABOUT 15 VISITS - STATES IT HELPED SOME AND HAS HOME EX PROGRAM AND STILL TRIES TO DO THE HEP BUT SOMETIMES TOO PAINFUL. NO LONGER SEEING CHIROPRATOR. FEELS CHIROPRACTIC WAS HELPFUL. NO BACK INJECTIONS. NO BACK SURGERY. PATIENT REPORTS SEEING A FAMILY PRACTICE DOCTOR AT THE [facility] ONCE FOR HIS BACK AND SHE ORDERED X-RAYS AND REFERRED HIM TO DR. ESTRADA. HAS SEEN DR. ESTRADA X 2 AND MRI RECOMMENDED BUT STATES HE HAS TO DO PHYSICAL THERPAY FIRST. Coughing/sneezing/straining: POSITIVE. Gait: DOES NOT USE ANY ASSITIVE DEVICES. NO FALLS. TIME AND DISTANCE LIMITED. Difficulty initiating urinatin: NO. Accidents: SEE ABOVE. Unexplained weight loss: NO. Imaging: RECENT LUMBAR X-RAYS - Disc space narrowing noted. throughout the lumbar spine most pronounced at L5/S1. PMH: PVC'S, NIDDM - Objective Sitting/Standing Posture: POOR. Lordosis: REDUCED. Lateral shift: NO. Relevant shift: N/A. Active Correction of posture: WORSE. Other Observations: INDEP GAIT INTO PT WITHOUT ANY ASSISTIVE DEVICES OR LOB. L FOOT SLAP. INDEP TRANSFERS SIT TO STAND WITHOUT UE ASSIST. Motor deficit: VERA LE'S 5/5 WITH MMT'ING EXCEPT L FOOT DROP. Sensory deficit: VERA LE LIGHT TOUCH SENSATION INTACT AND SYMMETRICAL - FEET NT. ROM deficit: TIGHT VERA LE HIP FLEXORS, HS'S AND GASTROC SOLEUS COMPLEX'S. Reflexes: UNABLE TO ELICIT VERA LE DTR'S. Dural Signs: POSITIVE VERA LE'S. Lumbar mvmt loss: flex - MIN. ext - CY. R SG - MOD TO CY. L SG - CY. Core strength: POOR. Palpation: NO ACUTE LUMBAR, SACRAL OR HIP TENDERNESS. TREATMENT: NEUROMUSCULAR REEDUCATION - RETRAINING OF MVMT AND POSTURE FOR SITTING, LYING AND STANDING ACTIVITIES. - Goals Goal 1:: DECREASE C/O LOW BACK AND VERA LE SX'S. Goal Time Frame: 4 WKS Goal 2:: IMPROVE LIFTING, WALKING, SITTING, STANDING, SLEEP, SOCIAL LIFE, TRAVEL, WORK AND HOMEMAKING FUNCTION. Goal Time Frame: 4 WKS Goal 3:: INSTRUCT IN PROPHYLAXIS Goal Time Frame: 4 WKS - Anticipated Interventions Patient/Client Instruction: Educate patient on: Condition, Plan of Care, Risk Factors For the Purpose of:: To improve self management Therapeutic Exercise to Include: Strength training, Body mechanics, Postural training, Flexibilty training, Neuromotor development, In an aquatic setting, Dynamic Lumbar Stabilization For the Purpose of:: To decrease pain, To improve muscle performance and motor function, To increase tolerance to activity/condition/position, To improve ability of physical actions for home/community/work/leisure Thank you for the opportunity to evaluate your patient. For Medicare and Medicare HMO plans, please review the plan of care and approve it. It will need to be FAXED BACK to us at [phone] for Medicare purposes. For Medicare only, by signing this I certify the plan of care. Please let me know if there are questions or concerns regarding this plan of care. Physician Signature: _Date:
--- NOTE | 2021-05-31 12:32 | HP.PTREVAL ---
Dr. John Estrada, DO, It has been my pleasure to treat NISA MOFFETT over the last 12 visits for LUMBAR SPINE HERNIATED DISC. Please see the progress note below for an update on the physical therapy plan of care! Subjective: PATIENT REPORTS HE CAN STAND UP STRAIGHTER AND HE FEELS MORE IN BALANCE. PATIENT ALSO REPORTS HE DOESN'T HAVE MUCH PAIN NOW HE HAD BEFORE STARTING THERAPY EITHER. STILL HAVING STOMACH CRAMPS AND HIS DOCTOR GAVE HIM MEDICINE FOR IT. PATIENT REPORTS TRUNK SENSATIVITY STARTING AT THE BEGINNING OF 2020 SOMETIME AFTER COLONOSCOPY. PATIENT REPORTS HE IS DOING HIS HEP AND IT SEEMS TO HELP WITH HIS PAIN BUT OVER-ALL HE IS NOT FUNCTIONING MUCH BETTER AND WOULD LIKE TO GET AN MRI SUGGESTED BY HIS DOCTOR. Objective/Function: PATIENT WAS SEEN TODAY FOR RE-ASSESSMENT OF PROGRESS TOWARD THE SET PT GOALS AND THE NEED FOR FURTHER PHYSICAL THERAPY VS READINESS FOR DISCHARGE. PATIENT IS REPORTING BETTER POSTURE AND DECREASED PAIN BUT NOT BETTER FUNCTION. THERE ARE NO SIGNIFICANT CHANGES WITH EXAM TODAY COMPARED TO INTIAL EVAL EXCEPT VERA LE DURAL SIGNS ARE NOW NEGATIVE WITH TESTING AND WERE POSITIVE AT EVAL. PHYSICIAN RE-ASSESSMENT RECOMMENDED AND PATIENT AGREEABLE. INSTRUCTED PATIENT TO CONTINUE HEP. UPON EXAM TODAY: INDEP GAIT INTO PT WITHOUT ANY ASSISTIVE DEVICES OR LOB. L FOOT SLAP. INDEP TRANSFERS SIT TO STAND WITHOUT UE ASSIST. Motor deficit: VERA LE'S 5/5 WITH MMT'ING EXCEPT L FOOT DROP. Sensory deficit: VERA LE LIGHT TOUCH SENSATION INTACT AND SYMMETRICAL - FEET NT. ROM deficit: TIGHT VERA LE HIP FLEXORS, HS'S AND GASTROC SOLEUS COMPLEX'S. Dural Signs: NEGATIVE VERA LE'S. Lumbar mvmt loss: flex - MIN. ext - CY. R SG - MOD TO CY. L SG - MOD TO CY. Core strength: POOR. Palpation: NO ACUTE LUMBAR, SACRAL OR HIP TENDERNESS. Plan Plan: *L FOOT DROP*. POSTURE CORRECTION/STRENGTHENING, INSTRUCTION IN APPROPRIATE BODY MECHANICS AND ACTIVITY MODIFICATIONS. DLS STARTING WITH A NEUTRAL SPINE PROGRESSING ROM TOLERATED. VERA LE ROM, STRETCHING AND STRENGTHENING. HEP INSTRUCTION. Balance/Gait/Functional tests - Balance/Special Test Scores Oswestry Low Back Score: 25 Goals Goal 1:: DECREASE C/O LOW BACK AND VERA LE SX'S. Goal Time Frame: 4 WKS Goal Progress: Progressing Goal 2:: IMPROVE LIFTING, WALKING, SITTING, STANDING, SLEEP, SOCIAL LIFE, TRAVEL, WORK AND HOMEMAKING FUNCTION. Goal Time Frame: 4 WKS Goal Progress: Not Progressing Goal 3:: INSTRUCT IN PROPHYLAXIS Goal Time Frame: 4 WKS Goal Progress: Progressing Anticipated Interventions Patient/Client Instruction: Educate patient on: Condition, Plan of Care, Risk Factors For the Purpose of:: To improve self management Therapeutic Exercise to Include: Strength training, Body mechanics, Postural training, Flexibilty training, Neuromotor development, In an aquatic setting, Dynamic Lumbar Stabilization For the Purpose of:: To decrease pain, To improve muscle performance and motor function, To increase tolerance to activity/condition/position, To improve ability of physical actions for home/community/work/leisure Please do not hesitate to contact me at [phone] by phone or if you have questions or concerns regarding this new plan of care! Sincerely, Colleen Ga, PT, Cert MDT
--- NOTE | 2021-08-09 08:53 | HP.PT.NRP ---
NISA MOFFETT was seen in my office for initial evaluation on 04/28/21. The following Plan of Care was established for this patient: Initial Frequency: 2-3x /Week Initial Duration: 4 Weeks Patient/Client Instruction: Educate patient on: Condition, Plan of Care, Risk Factors For the Purpose of:: To improve self management Therapeutic Exercise to Include: Strength training, Body mechanics, Postural training, Flexibilty training, Neuromotor development, In an aquatic setting, Dynamic Lumbar Stabilization For the Purpose of:: To decrease pain, To improve muscle performance and motor function, To increase tolerance to activity/condition/position, To improve ability of physical actions for home/community/work/leisure This patient was last seen in our office 05/31/21. Pertinent comments regarding their Physical therapy will appear below: This patient has not returned to Physical Therapy and is appropriate to return to MD for further follow-up as needed. At this point I will be discontinuing this patient from physical therapy. I would be happy to see this patient again in the future if found appropriate by the physician. Thank you! Colleen Ga, PT, Cert MDT Balance/Gait/Functional tests - Balance/Special Test Scores Oswestry Low Back Score: 25
== END 2021-05-31 19:00 | disposition home or self-care (01) ==
LOC: PT 12:00
PROVIDERS: Referring Provider Orthopaedic Surgery; Visit Provider Orthopaedic Surgery
DX: M51.26 Other intervertebral disc displacement, lumbar region (principal)
CPT/HCPCS: 97110; 97112; 97162; 97164; 97530

== ENCOUNTER → 2021-09-02 10:09 | Outpatient (CLI) | payer MEDICAID, SELFPAY ==
--- NOTE | 2021-09-02 10:10 | US_ITS ---
STUDY: ABDOMINAL ULTRASOUND REASON FOR EXAM: Male, 56 years old. Gallbladder polyp TECHNIQUE: Transabdominal ultrasound was performed with real-time and static velasco scale imaging. TECHNICAL QUALITY: Adequate. COMPARISON: Comparison is made with prior study dated 02/08/2021. FINDINGS: Liver: The liver measures 15 cm. There is increased echogenicity consistent with fatty infiltration. The bile ducts are within normal limits. There is hepatic color flow. The direction of portal flow is hepatopetal. There is no demonstrated mass lesion. Portal vein measurement: Gallbladder: Normal distended gallbladder. The gallbladder wall measures 2.4 mm. There is a negative sonographic Kellogg''s sign. There is no pericholecystic fluid. There is a solitary echogenic gallstone within the gallbladder. This measures 5 mm x 5 mm x 5 mm. Common Bile Duct (C.B.D.): The common bile duct measures 4.1 mm. Pancreas: Normal size of the head, body and tail of the pancreas. There is normal echogenicity of the pancreas. There is no demonstrated pancreatic mass or cyst. Spleen: Normal size of the spleen. The spleen measures 11.5 cm x 4.4 cm x 4.4 cm. Right Kidney: Normal size of the right kidney. The right kidney measures 12.9 cm x 4.6 cm x 5 cm. Normal renal cortex. The right cortex measures 1.6 cm. There is no demonstrated renal mass or cyst. There is no right hydronephrosis. Left Kidney: Normal size of the left kidney. The left kidney measures 13.7 cm x 4.1 cm x 4.8 cm. Normal renal cortex. The left cortex measures 1.5 cm. There is no demonstrated renal mass or cyst. There is no left hydronephrosis. Aorta: Unremarkable I.V.C.: The IVC is patent. There is no ascites. US/Abdomen Complete IMPRESSION: Fatty infiltration of the liver. There is a 5 mm x 5 mm x 5 mm solitary gallstone. Electronically Signed: Jose Mendoza MD at 12:22 EDT , Service support ,
== END ==
PROVIDERS: Referring Provider Surgery; Visit Provider Surgery
DX: K82.4 Cholesterolosis of gallbladder (principal)
CPT/HCPCS: 76700

== ENCOUNTER → 2022-09-07 | Outpatient (CLI) | payer MEDICAID, SELFPAY ==
[2022-09-07 10:36] LABS: Hemoglobin A1c 8.6 % (3.8-5.6)
[2022-09-07 10:44] LABS: Anion Gap 6 (5-15); BUN 18 mg/dL (7-18); BUN/Creat Ratio 23.4 RATIO (10-20); Calcium,Total 9.4 mg/dL (8.5-10.1); Chloride 104 mmol/L (98-107); Cholesterol 151 mg/dL (200); Creatinine, Serum 0.77 mg/dL (0.70-1.30); EST Glomerular Filtration Rate 110 mL/min (>60); Est Glom Filt Rate - Afr Amer 134 mL/min (>60); Glucose 206 mg/dL (74-106); High Density Lipoprotein 36 mg/dL; Potassium 4.1 mmol/L (3.5-5.1); Sodium Level 136 mmol/L (136-145); Triglycerides 154 mg/dL; Very Low Density Lipoprotein 31 mg/dL (5-40)
== END | disposition home or self-care (01) ==
PROVIDERS: Visit Provider Family Medicine
DX: E11.65 Type 2 diabetes mellitus with hyperglycemia (principal)
CPT/HCPCS: 36415; 80048; 80061; 83036

== ENCOUNTER → 2023-03-23 | Outpatient (CLI) | payer MEDICAID, SELFPAY ==
[2023-03-23 09:47] LABS: Hematocrit 46.4 % (40-54); Hemoglobin 15.7 g/dL (13.0-16.5); Mean Corp Hgb Conc 33.8 g/dL (32-36); Mean Corpuscular Hgb 30.6 pg (27.0-32.0); Mean Corpuscular Volume 90.4 fL (80-94); Platelet Count 225 K/mm3 (150-450); RBC Distribution Width CV 13.1 % (11.6-14.6); Red Blood Count 5.13 M/mm3 (4.6-6.2); White Blood Count 7.1 K/mm3 (4.4-11.0)
[2023-03-23 10:08] LABS: Hemoglobin A1c 7.2 % (3.8-5.6)
[2023-03-23 10:12] LABS: AST(SGOT) 24 U/L (15-37); Alanine Aminotransfer ALT/SGPT 34 U/L (16-61); Albumin, Serum 3.7 g/dL (3.2-5.0); Alkaline Phosphatase 59 U/L (45-117); Anion Gap 6 (5-15); BUN 18 mg/dL (7-18); BUN/Creat Ratio 21.7 RATIO (10-20); Calcium,Total 9.7 mg/dL (8.5-10.1); Chloride 104 mmol/L (98-107); Cholesterol 129 mg/dL (200); Creatinine, Serum 0.83 mg/dL (0.70-1.30); EST Glomerular Filtration Rate 101 mL/min (>60); Est Glom Filt Rate - Afr Amer 122 mL/min (>60); Globulin 3.7 g/dL (2.2-4.2); Glucose 130 mg/dL (74-106); High Density Lipoprotein 30 mg/dL; Potassium 4.1 mmol/L (3.5-5.1); Protein, Total 7.4 g/dL (6.4-8.2); Sodium Level 138 mmol/L (136-145); Triglycerides 235 mg/dL; Very Low Density Lipoprotein 47 mg/dL (5-40)
== END | disposition home or self-care (01) ==
LOC: LAB 08:56
PROVIDERS: Referring Provider Nurse Practitioner Family; Visit Provider Nurse Practitioner Family
DX: E11.65 Type 2 diabetes mellitus with hyperglycemia (principal); E78.5 Hyperlipidemia, unspecified
CPT/HCPCS: 36415; 80053; 80061; 82043; 83036; 85027

== ENCOUNTER → 2023-08-07 | Outpatient (CLI) | payer MEDICAID, SELFPAY ==
--- NOTE | 2023-08-07 08:35 | ECHOD_ITS ---
Reason For Study: CARDIOMYOPATHY Procedure This was a 2D Doppler, Color Flow transthoracic echocardiogram. Exam performed in department. Left Ventricle Normal LV size. Sigmoid septum. Left ventricular systolic function is normal. The estimated ejection fraction is 45 %. Stage 1 diastolic dysfunction. No regional wall motion abnormalities noted. Right Ventricle Normal RV size. Normal systolic function. Atria Normal left atrium. Normal right atrium. Mitral Valve Normal mitral valve. Tricuspid Valve Normal tricuspid valve. Aortic Valve Trisinus/trileaflet aortic valve. Pulmonic Valve Normal pulmonic valve. Great Vessels Normal aortic root. The pulmonary artery is normal size. Normal inferior vena cava. Pericardium/Pleural No pericardial effusion. MMode/2D Measurements & Calculations LVIDd: 5.3 cm IVSd: 0.89 cm Ao root diam: 3.4 cm LVIDs: 3.8 cm LVPWd: 0.95 cm RVDd: 3.0 cm FS: 27.0 % LAV(MOD-bp): 43.5 ml EDV(MOD-sp4): 95.8 ml EDV(MOD-sp2): 89.1 ml LAV(MOD-bp) Indexed: 21.7 ml/m2 ESV(MOD-sp4): 53.8 ml ESV(MOD-sp2): 44.0 ml LAV(MOD-sp2): 53.1 ml EF(MOD-sp4): 43.8 % EF(MOD-sp2): 50.6 % LAV(MOD-sp4): 36.8 ml SV(MOD-sp4): 41.9 ml SV(MOD-sp2): 45.1 ml LA A4 area: 15.1 cm2 LA dimension(2D): 3.8 cm TAPSE: 1.8 cm RA A4 area: 9.8 cm2 Time Measurements MV dec time: 0.16 sec Doppler Measurements & Calculations MV E max javed: 78.0 cm/sec Lat Peak E' Javed: 8.9 cm/sec Med Peak E' Javed: 5.0 cm/sec MV A max javed: 109.1 cm/sec E/E' lat: 8.7 E/E' med: 15.5 MV E/A: 0.72 Ao V2 max: 106.5 cm/sec LV V1 max: 75.8 cm/sec PA V2 max: 105.0 cm/sec Ao max P.5 mmHg LV V1 max P.3 mmHg PA V2 mean: 79.1 cm/sec Ao V2 mean: 81.8 cm/sec LV V1 mean P.3 mmHg Ao mean P.8 mmHg LV V1 mean: 55.3 cm/sec Ao V2 VTI: 21.9 cm LV V1 VTI: 16.2 cm AV (velocity ratio): 0.74 ECHO/Echo Complete Interpretation Summary Normal LV size. Left ventricular systolic function is normal. Stage 1 diastolic dysfunction. The estimated ejection fraction is 45 %. Ordering Physician: Bhavik Rios Referring Physician: [place] Performed By: Cathie Smart RDCS, RVT
== END | disposition home or self-care (01) ==
LOC: CVS 08:34
PROVIDERS: Referring Provider Nurse Practitioner Family; Visit Provider Nurse Practitioner Family
DX: I42.8 Other cardiomyopathies (principal); I49.3 Ventricular premature depolarization; E78.5 Hyperlipidemia, unspecified
CPT/HCPCS: 93306

== ENCOUNTER → 2023-10-19 | Outpatient (CLI) | payer MEDICAID, SELFPAY ==
[2023-10-19 11:29] LABS: Hematocrit 47.7 % (40-54); Hemoglobin 15.9 g/dL (13.0-16.5); Mean Corp Hgb Conc 33.3 g/dL (32-36); Mean Corpuscular Hgb 29.7 pg (27.0-32.0); Mean Corpuscular Volume 89.2 fL (80-94); Mean Platelet Vol. 10.7 fl (6.2-12.0); Platelet Count 292 K/mm3 (150-450); RBC Distribution Width CV 13.5 % (11.6-14.6); RBC Distribution Width SD 43.7 fl (35.1-43.9); Red Blood Count 5.35 M/mm3 (4.6-6.2); White Blood Count 7.4 K/mm3 (4.4-11.0)
[2023-10-19 11:55] LABS: Microalbumin,Random Urine 24.7 mg/L (NO RANGE EST.)
[2023-10-19 12:04] LABS: ALB/GLOB Ratio 0.9 RATIO (0.9-2.4); AST(SGOT) 19 U/L (15-37); Alanine Aminotransfer ALT/SGPT 32 U/L (16-61); Albumin, Serum 3.6 g/dL (3.2-5.0); Alkaline Phosphatase 57 U/L (45-117); Anion Gap 9 (5-15); BUN 23 mg/dL (7-18); BUN/Creat Ratio 24.3 RATIO (10-20); Calcium,Total 9.5 mg/dL (8.5-10.1); Chloride 100 mmol/L (98-107); Cholesterol 199 mg/dL (200); Creatinine, Serum 0.95 mg/dL (0.70-1.30); EST Glomerular Filtration Rate 87 mL/min (>60); Est Glom Filt Rate - Afr Amer 105 mL/min (>60); Globulin 3.9 g/dL (2.2-4.2); Glucose 252 mg/dL (74-106); High Density Lipoprotein 29 mg/dL; Potassium 4.3 mmol/L (3.5-5.1); Protein, Total 7.5 g/dL (6.4-8.2); Sodium Level 136 mmol/L (136-145); Triglycerides 641 mg/dL
== END | disposition home or self-care (01) ==
LOC: LAB 11:11
PROVIDERS: Nurse Practitioner Family
DX: E78.5 Hyperlipidemia, unspecified (principal); E11.65 Type 2 diabetes mellitus with hyperglycemia; I10 Essential (primary) hypertension
CPT/HCPCS: 36415; 80053; 80061; 82043; 85027

== ENCOUNTER → 2024-04-02 | Outpatient (CLI) | payer MEDICAID, SELFPAY ==
[2024-04-02 11:25] LABS: Absolute Lymphocyte Count 1.74 X10^3/uL (0.83-4.51); Absolute Neutrophil Count 3.7 X10^3/uL (2.0-7.7); Basophil# 0.06 X10^3/uL; Basophil% 0.9 % (0-1); Eosinophil# 0.13 X10^3/uL; Hematocrit 46.6 % (40-54); Hemoglobin 15.6 g/dL (13.0-16.5); Lymphocyte # 1.74 X10^3/ul (0.83-4.51); Lymphocyte % 26.5 % (19-41); Mean Corp Hgb Conc 33.5 g/dL (32-36); Mean Corpuscular Hgb 30.1 pg (27.0-32.0); Mean Platelet Vol. 11.3 fl (6.2-12.0); Monocyte# 0.93 X10^3/uL; Monocyte% 14.2 % (0-10); NRBC Flagged by Analyzer 0 % (0-5); Neutrophil % 56.2 % (47-70); Platelet Count 229 K/mm3 (150-450); RBC Distribution Width CV 13.2 % (11.6-14.6); RBC Distribution Width SD 43.5 fl (35.1-43.9); Red Blood Count 5.18 M/mm3 (4.6-6.2); White Blood Count 6.6 K/mm3 (4.4-11.0)
[2024-04-02 12:01] LABS: ALB/GLOB Ratio 1.1 RATIO (0.9-2.4); AST(SGOT) 20 U/L (15-37); Alanine Aminotransfer ALT/SGPT 28 U/L (16-61); Albumin, Serum 4.1 g/dL (3.2-5.0); Alkaline Phosphatase 61 U/L (45-117); Anion Gap 6 (5-15); BUN 23 mg/dL (7-18); BUN/Creat Ratio 25.7 RATIO (10-20); Calcium,Total 9.5 mg/dL (8.5-10.1); Chloride 106 mmol/L (98-107); Cholesterol 102 mg/dL (200); Creatinine, Serum 0.89 mg/dL (0.70-1.30); EST Glomerular Filtration Rate 92 mL/min (>60); Est Glom Filt Rate - Afr Amer 112 mL/min (>60); Globulin 3.8 g/dL (2.2-4.2); Glucose 99 mg/dL (74-106); High Density Lipoprotein 38 mg/dL; Protein, Total 7.9 g/dL (6.4-8.2); Sodium Level 138 mmol/L (136-145); Thyroid Stim Hormone (TSH) 1.81 uIU/mL (0.358-3.74); Triglycerides 193 mg/dL; Very Low Density Lipoprotein 39 mg/dL (5-40)
[2024-04-05 18:18] LABS: Microalbumin,Random Urine 11.9 mg/L (NO RANGE EST.)
== END | disposition home or self-care (01) ==
LOC: LAB 10:56
PROVIDERS: PCP Nurse Practitioner Family; Referring Provider Nurse Practitioner Family; Visit Provider Nurse Practitioner Family
DX: E11.65 Type 2 diabetes mellitus with hyperglycemia (principal); E78.5 Hyperlipidemia, unspecified; I10 Essential (primary) hypertension
CPT/HCPCS: 36415; 80053; 80061; 82043; 84443; 85025

== ENCOUNTER → 2024-10-08 | Outpatient (CLI) | payer MEDICAID, SELFPAY ==
[2024-10-08 17:10] LABS: Absolute Lymphocyte Count 1.92 X10^3/uL (0.83-4.51); Absolute Neutrophil Count 5.4 X10^3/uL (2.0-7.7); Basophil# 0.07 X10^3/uL; Basophil% 0.8 % (0-1); Eosinophil# 0.15 X10^3/uL; Eosinophils% 1.8 % (0-5); Hematocrit 47.5 % (40-54); Hemoglobin 16.3 g/dL (13.0-16.5); Lymphocyte # 1.92 X10^3/ul (0.83-4.51); Lymphocyte % 22.7 % (19-41); Mean Corp Hgb Conc 34.3 g/dL (32-36); Mean Corpuscular Hgb 30.4 pg (27.0-32.0); Mean Corpuscular Volume 88.6 fL (80-94); Mean Platelet Vol. 11.7 fl (6.2-12.0); Monocyte# 0.91 X10^3/uL; Monocyte% 10.8 % (0-10); NRBC Flagged by Analyzer 0 % (0-5); Neutrophil # 5.38 X10^3/uL (2.7-7.7); Neutrophil % 63.7 % (47-70); Platelet Count 204 K/mm3 (150-450); RBC Distribution Width CV 13.4 % (11.6-14.6); RBC Distribution Width SD 43.8 fl (35.1-43.9); Red Blood Count 5.36 M/mm3 (4.6-6.2); White Blood Count 8.5 K/mm3 (4.4-11.0)
[2024-10-08 17:32] LABS: ALB/GLOB Ratio 1.1 RATIO (0.9-2.4); AST(SGOT) 28 U/L (15-37); Alanine Aminotransfer ALT/SGPT 40 U/L (16-61); Albumin, Serum 4.2 g/dL (3.2-5.0); Alkaline Phosphatase 63 U/L (45-117); Anion Gap 7 (5-15); BUN 15 mg/dL (7-18); BUN/Creat Ratio 15.9 RATIO (10-20); Chloride 101 mmol/L (98-107); Cholesterol 136 mg/dL (200); Creatinine, Serum 0.94 mg/dL (0.70-1.30); EST Glomerular Filtration Rate 87 mL/min (>60); Est Glom Filt Rate - Afr Amer 105 mL/min (>60); Globulin 3.9 g/dL (2.2-4.2); Glucose 91 mg/dL (74-106); High Density Lipoprotein 37 mg/dL; Potassium 4.3 mmol/L (3.5-5.1); Protein, Total 8.1 g/dL (6.4-8.2); Sodium Level 135 mmol/L (136-145); Triglycerides 223 mg/dL; Very Low Density Lipoprotein 45 mg/dL (5-40)
[2024-10-08 19:32] LABS: Microalbumin,Random Urine 61.9 mg/L (NO RANGE EST.)
== END | disposition home or self-care (01) ==
LOC: VSLAB 13:43
PROVIDERS: PCP Nurse Practitioner Family; Visit Provider Nurse Practitioner Family
DX: E11.65 Type 2 diabetes mellitus with hyperglycemia (principal); E78.5 Hyperlipidemia, unspecified; I10 Essential (primary) hypertension
CPT/HCPCS: 36415; 80053; 80061; 82043; 84443; 85025

== ENCOUNTER → 2025-04-23 | Outpatient (CLI) | payer MEDICAID, SELFPAY ==
[2025-04-23 11:06] LABS: Absolute Lymphocyte Count 1.51 X10^3/uL (0.83-4.51); Absolute Neutrophil Count 3.1 X10^3/uL (2.0-7.7); Basophil# 0.03 X10^3/uL; Basophil% 0.5 % (0-1); Eosinophils% 1.8 % (0-5); Hematocrit 45.5 % (40-54); Hemoglobin 15.2 g/dL (13.0-16.5); Lymphocyte # 1.51 X10^3/ul (0.83-4.51); Lymphocyte % 27.3 % (19-41); Mean Corp Hgb Conc 33.4 g/dL (32-36); Mean Corpuscular Hgb 30.2 pg (27.0-32.0); Mean Corpuscular Volume 90.5 fL (80-94); Mean Platelet Vol. 10.8 fl (6.2-12.0); Monocyte# 0.73 X10^3/uL; Monocyte% 13.2 % (0-10); NRBC Flagged by Analyzer 0 % (0-5); Neutrophil # 3.14 X10^3/uL (2.7-7.7); Neutrophil % 56.8 % (47-70); Platelet Count 194 K/mm3 (150-450); RBC Distribution Width CV 13.2 % (11.6-14.6); RBC Distribution Width SD 44.4 fl (35.1-43.9); Red Blood Count 5.03 M/mm3 (4.6-6.2); White Blood Count 5.5 K/mm3 (4.4-11.0)
[2025-04-23 11:29] LABS: Microalbumin,Random Urine 63.7 mg/L (NO RANGE EST.)
[2025-04-23 11:34] LABS: ALB/GLOB Ratio 1.3 RATIO (0.9-2.4); AST(SGOT) 21 U/L (<=37); Alanine Aminotransfer ALT/SGPT 25 U/L (<=46); Albumin, Serum 4.3 g/dL (3.4-4.8); Alkaline Phosphatase 67 U/L (40-129); Anion Gap 11 (5-15); BUN 21 mg/dL (4-19); BUN/Creat Ratio 25.1 RATIO (10-20); Calcium,Total 9.5 mg/dL (7.6-11.0); Carbon Dioxide 24.1 mmol/L (21.0-32.0); Chloride 102 mmol/L (98-108); Cholesterol 196 mg/dL (<=200); Creatinine, Serum 0.84 mg/dL (0.70-1.20); EST Glomerular Filtration Rate 100 (>60); Globulin 3.2 g/dL (2.2-4.2); Glucose 159 mg/dL (70-99); High Density Lipoprotein 36 mg/dL; Low Density Lipoprotein Calc. 116 mg/dL; Potassium 4.7 mmol/L (3.3-5.1); Protein, Total 7.5 g/dL (5.9-8.4); Sodium Level 137 mmol/L (133-145); Total Bilirubin 0.59 mg/dL (0.00-1.30); Triglycerides 219 mg/dL; Very Low Density Lipoprotein 44 mg/dL (5-40); cholesterol:hdl ratio screen 5.44
[2025-04-23 11:36] LABS: PSA,Total - Annual Screen 0.74 ng/mL (0.02-4.00)
--- OUTSIDE RECORDS SUMMARY | 2025-04-23 21:23 | XMS RPT_ITS | CCD ---
Author Organization [facility] Inform ion Partnership [facility] Care Team Providers Care Cash Posting Representative Name Role Phone TAYE EVERETT Attending Unavailable CLINIC, CLEMENTE SANCHEZ Primary Care Unavail ble TAYE EVERETT Admitting Unavailable Reyes Gutiérrez CNP Primary Care Provider Reyes Gutiérrez CNP Unavailable [facility] [place] [facility] Primary Care Pro vider [facility] [place] [facility] Referring Provid er Dr. Aftab Ryder Attending Provider [phone] OZZY DIAZ, DR FERNANDO Torres Primary Care Physician Ethel vailable REFERRING REFERRING, AMARI JACK ID Attending Unavailable OZZY DIAZ., DR. FERNANDO Torres Primary Care [facility] [place] [facility] Primary Care Pro vider [facility] [place] [facility] Referring Provid er Dr. John Estrada Attending Provider [phone] [facility] [place] Primary Care Pro vider [facility] [place] [facility] Referring Provid er Roof FINANCIAL ADVOCATE, FINANCIAL ADVOCATE-Ilir Stewart Attending Provider Dr. Aftab Ryder Attending Provider [phone] [facility] [place] Primary Care Pro vider [facility] [place] Referring Provid er Roof FINANCIAL ADVOCATE, ALFONZO Stewart Attending Provider Dr. Aftab Ryder Attending Provider [phone] Roof FINANCIAL ADVOCATE, ALFONZO Stewart Referring Provider Reyes Gutiérrez CNP Primary Care Provider Reyes Gutiérrez CNP Unavailable Joshua FINANCIAL ADVOCATE, Denice Unavailable [facility], [facility] Primary Care [facility], Clemente Sanchez Referring Unavailable Aftab Ryder Attending Unavailable [facility], [facility] Primary Care [facility], [facility], Denice Attending [facility], [facility], [facility] Primary Care [facility], [facility], Denice Referring [facility], [facility], Denice Attending [facility] MARK, REYES Sullivan Primary Care Unavailable TESTBRYAN MCKEON Referring Unavailable TESTMIKE, BRYAN Attending Unavailable MARK, REYES K Primary Care Unavailable TESTRAKE, BRYAN Referring Unavailable MARK, REYES K Primary Care Unavailable Medications Current Medications Medication Drug Class(es) Dates Sig (Normalized) Sig (Original) acetaminophen 500 mg oral tablet (1 source) Start: 01-31-2012 Tylenol 500 mg oral tablet Dose : 500 mg = 1 tab(s), Oral, q4h, PRN for pain, # 60 tab(s), 0 Refill(s) Start Date: 01/31/12 Status: Ordered atorvastatin 10 mg oral tablet (7 sources) HMG-CoA Reductase Inhibitor Start: 12-15-2020 End: 11-14-2024 take 10 mg by mouth once daily Atorvastatin Active 10 MG PO DAILY December 15, 2020 12:00am Comment on above: Take 10 mg by mouth once daily. carvedilol 25 mg oral tablet (20 sources) alpha-Adrenergic Carrington, beta-Adrenergic Carrington Start: 09-15-2020 End: 08-03-2021 take 25 mg by mouth twice daily at mealtime Carvedilol Active 25 MG PO TWICE A DAY 60 August 03, 2021 8:40am must administer with a meal/food Start: 07-28-2020 End: 09-15-2020 take 12.5 mg by mouth twice daily at mealtime Carvedilol Discontinued 12.5 MG PO TWICE A DAY 60 July 27, 2020 11:00pm September 15, 2020 9:21am must administer with a meal/food Start: 07-14-2020 End: 07-28-2020 take 1 tablet by mouth twice daily at mealtime Carvedilol (Coreg) 6.25 mg tablet Discontinued 6.25 MG PO TWICE A DAY 60 July 13, 2020 11:00pm July 28, 2020 4:42pm must administer with a meal/food Comment on above: Take 25 mg by mouth twice daily with meals. cetirizine hydrochloride 10 mg oral tablet (2 sources) Histamine-1 Receptor Antagonist Start: 4 take 1 tablet by mouth once cetirizine (ZYRTEC) 10 mg tablet Take 1 tablet by mouth every afternoon. 10/08/2024 Active Dulaglutide (2 sources) GLP-1 Receptor Agonist Start: 3 Dulaglutide (Trulicity) 3 mg/0.5 mL pen injector Active 3 MG SC EVERY WEEK July 18, 2023 11:00pm Start: 07-19-2023 Dulaglutide (T rulicity) 3 mg/0.5 mL pen injector Active 3 MG SC EVERY WEEK July 19, 2023 12:00am FREESTYLE CLAUDIA 2 SENSOR kit (2 sources) Start: 10-18-2024 FREESTYLE LIBR E 2 SENSOR kit PATIENT CHECKS BLOOD GLUCOSE 2-5X/DAY. ON INJECTABLE MEDICATION. 10/18/2024 Active gabapentin 300 mg oral capsule (3 sources) Anti-epileptic Agent Start: 03-29-2023 take 300 mg by mouth once daily Gabapentin Active 300 MG PO DAILY March 28, 2023 11:00pm garlic oil 600 mg oral capsule (1 source) Start: 02-07-2013 take 1 capsule by mouth once daily garlic oil 600 mg oral capsule 1 cap(s), Oral, Daily, 0 Refill(s) Start Date: 02/07/13 Status: Ordered metFORMIN hydrochloride 500 mg oral tablet (11 sources) Biguanide Start: 03-02-2021 take 1000 mg by mouth twice daily Metformin Active 1000 MG PO TWICE A DAY March 02, 2021 12:55pm Start: 07-01-2020 End: 03-02-2021 take 500 mg by mouth twice daily Metformin Discontinue d 500 MG PO TWICE A DAY June 30, 2020 11:00pm March 02, 2021 12:55pm End: 11-14-2024 take 1 tablet by mouth once daily at breakfast metFORMIN ER (GLUMETZA) 1,000 mg 24 hr tablet Take 1,000 mg by mouth daily with breakfast. 11/14/2024 Discontinued (Discontinued by another Health Care Provider) Comment on above: Take 1,000 mg by woodrow th daily with breakfast. MOUNJARO 10 mg/0.5 mL pen injector (2 sources) Start: 11-09-2024 MOUNJARO 10 mg/0.5 mL pen injector 11/09/2024 Active omeprazole 40 mg delayed release oral capsule (16 sources) Proton Pump Inhibitor Start: 08-10-2021 End: 10-11-2021 take 40 mg by mouth once daily Omeprazole Active 40 MG PO DAILY October 11, 2021 8:53am Start: 03-02-2021 End: 03-17-2021 take 20 mg by mouth once daily Omeprazole Discontinued 20 MG PO DAILY March 01, 2021 11:00pm March 17, 2021 10:19am Comment on above: Take 20 mg by mouth once daily. sacubitril 49 mg / valsartan 51 mg oral tablet (2 sources) Angiotensin 2 Receptor Carrington Start: 08-09-2023 take 1 tablet by mouth twice daily Sacubitril-Valsar martinez (Entresto) 49-51 mg tablet Active 1 TABLET PO TWICE A DAY August 08, 2023 11:00pm Completed/Discontinued Medications Medication Drug Class(es) Dates Sig (Normalized) Sig (Original) amiodarone hydrochloride 200 mg oral tablet (8 sources) Antiarrhythmic Start: 09-28-2020 End: 03-02-2021 take 200 mg by mouth once daily Amiodarone Discontinued 200 MG PO DAILY October 14, 2020 4:32pm March 02, 2021 12:55pm aspirin 81 mg delayed release oral tablet (4 sources) Platelet Aggregation Inhibitor, Nonsteroidal Anti-inflammatory Drug Start: 08-14-2020 End: 04-06-2021 take 1 tablet by mouth once daily Aspirin (Adult Aspirin Regimen) 81 mg tablet,delayed release (DR/EC) Discontinued 81 MG PO DAILY August 13, 2020 11:00pm April 06, 2021 2:36pm clopidogrel 75 mg oral tablet (4 sources) P2Y12 Platelet Inhibitor Start: 09-21-2020 End: 09-28-2020 take 75 mg by mouth once daily Clopidogrel Discontinued 75 MG PO DAILY September 21, 2020 12:00am September 28, 2020 10:20am dapagliflozin 10 mg oral tablet (8 sources) Sodium-Glucose Cotransporter 2 Inhibitor Start: 07-19-2022 End: 07-19-2023 take 1 tablet by mouth once daily Dapagliflozin Propanediol (Farxiga) 10 mg tablet Discontinued 10 MG PO DAILY July 19, 2023 10:00am July 19, 2023 10:02am lactulose 667 mg/ml oral solution (4 sources) Osmotic Laxative Start: 03-02-2021 End: 10-11-2021 take 1 mL by mouth once daily Lactulose Discontinued 15 ML PO DAILY March 01, 2021 11:00pm October 11, 2021 8:54am lisinopril 5 mg oral tablet (4 sources) Angiotensin Converting Enzyme Inhibitor Start: 07-14-2020 End: 04-06-2021 take 5 mg by mouth once daily Lisinopril Discontinued 5 MG PO DAILY July 13, 2020 11:00pm April 06, 2021 2:36pm losartan potassium 50 mg oral tablet (20 sources) Angiotensin 2 Receptor Carrington Start: 04-06-2021 End: 08-09-2023 take 1 tablet by mouth once daily Losartan Discontinued 0 .ROUTE .COMPLEX March 29, 2023 8:36am July 19, 2023 9:47am TAKE 1 TABLET BY MOUTH EVERY DAY take 1 tablet by mouth once kathleen y losartan (COZAAR) 25 mg tablet Take 25 mg by mouth once daily. Active Comment on above: Take 25 mg by mouth once daily. 24 hr metoprolol succinate 50 mg extended release oral tablet (4 sources) beta-Adrenergic Carrington Start: 07-01-2020 End: 07-28-2020 take 1 tablet by mouth once daily Metoprolol Succinate (Toprol Xl) 50 mg tablet extended release 24 hr Discontinued 50 MG PO DAILY June 30, 2020 11:00pm July 28, 2020 4:42pm sucralfate 1000 mg oral tablet (4 sources) Aluminum Complex Start: 03-02-2021 End: 10-11-2021 take 1 tablet by mouth at bedtime Sucralfate (Carafate) 1 gram tablet Discontinued 1 GM PO before meals and at bedtime March 01, 2021 11:00pm October 11, 2021 8:55am Problems Active Problems Problem Classification Problem Date Documented Da te Episodic/Chronic Biliary tract disease (4 sources) Polyp of gallbladder; Translations: [Cholesterolosis of gallbladder] 03-20-2021 Episodic Cardiac dysrhythmias (7 sources) Unifocal PVCs; Translations: [Ventricular premature depolarization] Chronic Conduction disorders (4 sources) Incomplete left bundle branch block; Translations: [Left bundle-branch block, unspecified] 09-17-2020 Chronic Diabetes mellitus with complications (4 sources) Diabetic mononeuropathy; Translations: [Diabetes mellitus due to underlying condition with diabetic mononeuropathy] Onset: 11-08-2024 Chronic Disorders of lipid metabolism (6 sources) Hyperlipidemia; Translations: [Hyperlipidemia, unspecified] 09-28-2020 Chronic Gastritis and duodenitis (4 sources) Gastritis; Translations: [Gastritis, unspecified, without bleeding] 03-20-2021 Episodic Malaise and fatigue (4 sources) Fatigue; Translations: [Other fatigue] 03-20-2021 Episodic Other bone disease and musculoskeletal deformities (12 sources) Segmental and somatic dysfunction; Translations: [Segmental and somatic dysfunction of lumbar region] 07-18-2022 Episodic Other circulatory disease (1 source) Abnormal peripheral pulse; Translations: [Other specified symptoms and signs involving the circulatory and respiratory systems] 11-14-2024 Episodic Other circulatory disease (1 source) Other specified symptoms and signs involving the circulatory and respiratory systems; Translations: [Diminished pulses in lower extremity] Onset: 12-06-2024 Episodic Shu-; endo-; and myocarditis; cardiomyopathy (except that caused by tuberculosis or sexually transmitted disease) (7 sources) Cardiomyopathy; Translations: [Other cardiomyopathies] Chronic Residual codes; unclassified (1 source) Pain; Translations: [Pain, unspecified] 10-21-2024 Episodic Residual codes; unclassified (1 source) Pain, unspecified; Translations: [Pain] Onset: 11-14-2024 Episodic Retinal detachments; defects; vascular occlusion; and retinopathy (4 sources) Retinal detachment of left eye due to retinal tear of left eye; Translations: [Unspecified retinal detachment with retinal break, left eye] 04-05-2021 Episodic Spondylosis; intervertebral disc disorders; other back problems (4 sources) Other intervertebral disc displacement, lumbar region; Translations: [Herniation of intervertebral disc of lumbar spine] 07-18-2022 Chronic Spondylosis; intervertebral disc disorders; other back problems (9 sources) Backache; Translations: [Dorsalgia, unspecified] 07-18-2022 Episodic Superficial injury; contusion (1 source) Abrasion, left foot, initial encounter; Translations: [Abrasion or friction burn of foot and toe(s), without mention of infection] 11-14-2024 Episodic Unclassified (1 source) Asthma; Translations: [Asthma] 02-07-2013 Past or Other Problems Problem Classification Problem Date Documented Date Episodic/Chronic Other screening for suspected conditions (not mental disorders or infectious disease) (4 sources) Thallium stress test abnormal; Translations: [Abnormal result of other cardiovascular function study] Onset: 09-16-2020 01-20-2021 Episodic Residual codes; unclassified (4 sources) History of radiofrequency ablation operation for arrhythmia; Translations: [Other specified postprocedural states] Onset: 01-20-2021 01-20-2021 Episodic Results Test Name Value Interpretation Reference Range Facility [facility] 01-06-2025 CNCO Letter Text Letter Text Normal [facility] PVR ANK PRESS VERA VAS LABon 12-06-2024 PVR ANK PRESS VERA VAS LAB Non-Invasive Vascular Laboratory [facility] Lower Extremity Arterial Physiology Study Bilateral/Complete Date of service/time: 12/06/2024 9:50:33 AM Name: MR. NISA KASPER Date of : 1965 Age: 59 years Gender: M Clinical Indication Decreased pulses. TECHNIQUE -------- An arterial physiological examination was performed, including measurement of blood pressures using continuous wave Doppler and recording of plethysmographic with or without Doppler waveforms at the below-mentioned limb segments. FINDINGS -------- RIGHT SIDE AT REST Right Doppler Waveforms Dorsalis pedis: Multiphasic. Post tibial: Multiphasic. Right Pressures Brachial: 110 mmHg Ankle dorsalis pedis: 138 mmHg MO: 1.17 Ankle posterior tibial: 143 mmHg MO: 1.21 Digit: 140 mmHg Right PVR Waveforms Ankle: Normal. Digit: Normal. LEFT SIDE AT REST Left Doppler Waveforms Dorsalis pedis: Multiphasic. Post tibial: Multiphasic. Left Pressures Brachial: 118 mmHg Ankle dorsalis pedis: 140 mmHg MO: 1.19 Ankle posterior tibial: 129 mmHg MO: 1.09 Digit: 117 mmHg Left PVR Waveforms Ankle: Normal. Digit: Normal. IMPRESSION RIGHT SIDE Resting right ankle brachial index: 1.21 Right toe brachial index: 1.19 Normal ankle brachial index at rest in the right leg. Normal toe brachial index at rest in the right leg. Right ankle: Normal at rest. LEFT SIDE Resting left ankle brachial index: 1.19 Left toe brachial index: 0.99 Normal ankle brachial index at rest in the left leg. Normal toe brachial index at rest in the left leg. Left ankle: Normal at rest. Technologist: Ines Singh RVT, RDOR Ordering physician: BRYAN AMATO Interpreting physician: JACIEL Liz DO Final CC [employer] Medical Image : [id number] [id number] See Link below for Image Normal [facility] CNOVon 11-14-2024 CNOV Office Visit (PODIWS ) NISA KASPER ([id number]) 1965 M Date Time Provider Department 11/14/24 9:30 AM BRYAN AMATO During your visit today, we recorded the following information about you: Dianna Rahman LPN 11/14/2024 9:23 AM Signed AMB ROOMING INTAKE FLOWSHEET DATA Risk Screening Do you have concerns about personal safety or safety in the home?: No Pain Pain Level: 5 Pain Location: Other: See Comment Description: Numbness Duration Units: Years Frequency: Continuous Intervention/Comfort measure: Relaxation, Reposition Patient presents with: Left Foot - New, diabetic foot exam Right Foot - New, diabetic foot exam Dianna RahmanJOSH Bryan Amato 11/14/2024 9:23 AM Signed Initial Office Visit Subjective: This 59 year old male presents to clinic for diabetic foot check. Patient has the following complaints: numbness in his feet. Patient admits to being diabetic for 5 years now . Patient +B/T/N in feet at this time. Patient +pain in legs when walking. No other pedal complaints at this time. No change in medications or medical history since last visit. PAIN EVALUATION 11/14/2024 0842 Pain Level: 5 Pain Location: Other: See Comment Description: Numbness Duration Units: Years Frequency: Continuous Intervention/Comfort measure: Relaxation;Reposition No results found for: HBA1C PCP: Reyes Gutiérrez CNP PAST MEDICAL HISTORY Diagnosis Date Arthritis Diabetes (HCC) Current Outpatient Medications Medication Sig cetirizine (ZYRTEC) 10 mg tablet Take 1 tablet by mouth every afternoon. FREEDermLink CLAUDIA 2 SENSOR kit PATIENT CHECKS BLOOD GLUCOSE 2-5X/DAY. ON INJECTABLE MEDICATION. MOUNJARO 10 mg/0.5 mL pen injector carvedilol (COREG) 25 mg tablet Take 25 mg by mouth twice daily with meals. losartan (COZAAR) 25 mg tablet Take 25 mg by mouth once daily. omeprazole (PRILOSEC) 20 mg capsule Take 20 mg by mouth once daily. No current facility-administered medications for this visit. ALLERGIES No Known Allergies No past surgical history on file. FAMILY HISTORY Problem Relation Age of Onset Cancer Mother Cancer Brother Social History Tobacco Use Smoking status: Former Smokeless tobacco: Former Substance Use Topics Alcohol use: Not Currently Drug use: Never REVIEW OF SYSTEMS GENERAL: Negative for Malaise, significant weight loss, fever RESPIRATORY: Negative for cough, wheezing and shortness of breath CARDIOVASCULAR: Negative for chest pain, leg swelling and palpitations GI: Negative for abdominal discomfort, blood in stools or black stools and change in bowel habits : Negative for dysuria, frequency and incontinence MUSCULOSKELETAL: Negative for joint pain or swelling, back pain, and muscle pain. SKIN: Negative for lesions, rash, and itching. HEMATOLOGY/LYMPHOLOGY Negative for prolonged bleeding, bruising easily, and swollen nodes. ENDOCRINE: Negative for cold or heat intolerance, polyuria, polydipsia and goiter. NEURO: negative The remainder of the review of systems is noncontributory. Objective: Patient presents to clinic ambulating in en Constitutional: Pt is a well developed 59 year old male who is alert, oriented, cooperative and in no apparent distress. Eyes: Following during examination. No redness or drainage. Respiratory: RR normal and nonlabored. Even breathing. No evidence of distress. Psychology: Patient is engaged during conversation. Normal affect and mood. Does not appear depressed or anxious. Vasc: DP and PT pulses are faintly palpable bilateral. CFT is less than 5 seconds bilateral. Skin temperature is warm to cool proximal to distal bilateral. There is no edema or varicosities noted. Hair growth present. Neuro: Protective sensation is intact to the foot and toes when tested with the 5.07 SWM bilateral. Vibratory sensation is absent at the hallux bilateral. + Significant neurological defecits. Derm: Inspection and palpation performed. Nails 1-5 b/l are normal in length and thickness. Skin is of normal turgor and texture. Hyperkeratosis noted to not present. Noninfected abrasion of left midfoot. NO ulcerations, scars, verruca or other lesions noted. Ortho: Ankle joint DF is full with the knee extended and full with knee flexed. No pain or crepitus noted. STJ, MTJ ROM are full and free of pain or crepitus. Muscle strength is 5/5 for dorsiflexors, plantarflexors, inverters, everters. Digital deformities include none. Assessment: (E11.42) Diabetic polyneuropathy associated with type 2 diabetes mellitus (HCC) (primary encounter diagnosis) (R09.89) Diminished pulses in lower extremity (S90.812A) Abrasion of left foot, initial encounter Plan: 1. Patient was seen and evaluated. 2. Patient was instructed on the continued importance of diabetic foot care along with proper diet and keeping their blood (more content not included)... Normal [facility] CBC W/Diff, Automatedon 09-29 Absolute Lymph 1.92 X10 3/uL Normal 0.83-4.51 [facility] Comment on above: Performed By: #### L 502.0500, L500.4050, L500.4100, L100.0100, L501.9520 #### [facility] [address] [place], [address] Absolute Neut 5.4 X10 3/uL Normal 2.0-7.7 [facility] Comment on above: Performed By: #### L 502.0500, L500.4050, L500.4100, L100.0100, L501.9520 #### [facility] [address] [place], [address] Basophils/100 WBC (Bld) 0.8 % Normal 0-1 [facility] Comment on above: Performed By: #### L 502.0500, L500.4050, L500.4100, L100.0100, L501.9520 #### [facility] [address] [place], [address] Eosinophils/100 WBC (Bld) 1.8 % Normal 0-5 [facility] Comment on above: Performed By: #### L 502.0500, L500.4050, L500.4100, L100.0100, L501.9520 #### [facility] [address] [place], [address] Erythrocyte distribution width (RBC) [Ratio] 13.4 % Normal 11.6-14.6 [facility] Comment on above: Performed By: #### L 502.0500, L500.4050, L500.4100, L100.0100, L501.9520 #### [facility] [address] [place], [address] Hematocrit (Bld) [Volume fraction] 47.5 % Normal 40-54 [facility] Comment on above: Performed By: #### L 502.0500, L500.4050, L500.4100, L100.0100, L501.9520 #### [facility] [address] [place], [address] Hemoglobin (Bld) [Mass/Vol] 16.3 g/dL Normal 13.0-16.5 [facility] Comment on above: Performed By: #### L 502.0500, L500.4050, L500.4100, L100.0100, L501.9520 #### [facility] [address] [place], [address] IG% 0.200 Normal 0.0-0.9 [facility] Comment on above: Result Comment: IG% - Immature Granulocytes (promyelocytes, myelocytes and metamyelocytes) > 1% indicates that a LEFT SHIFT is Present. Performed By: #### L 502.0500, L500.4050, L500.4100, L100.0100, L501.9520 #### [facility] [address] [place], [address] Lymphocytes/100 WBC (Bld) 22.7 % Normal 19-41 [facility] Comment on above: Performed By: #### L 502.0500, L500.4050, L500.4100, L100.0100, L501.9520 #### [facility] [address] [place], [address] MCH (RBC) [Entitic mass] 30.4 pg Normal 27.0-32.0 [facility] Comment on above: Performed By: #### L 502.0500, L500.4050, L500.4100, L100.0100, L501.9520 #### [facility] [address] [place], [address] MCHC (RBC) [Mass/Vol] 34.3 g/dL Normal 32-36 [facility] Comment on above: Performed By: #### L 502.0500, L500.4050, L500.4100, L100.0100, L501.9520 #### [facility] [address] [place], [address] MCV (RBC) [Entitic vol] 88.6 fL Normal 80-94 [facility] Comment on above: Performed By: #### L 502.0500, L500.4050, L500.4100, L100.0100, [id number] #### [facility] [address] [place], [address] Monocytes/100 WBC (Bld) 10.8 % High 0-10 [facility] Comment on above: Performed By: #### L 502.0500, L500.4050, L500.4100, L100.0100, [id number] #### [facility] [address] [place], [address] Neutrophils/100 WBC (Bld) 63.7 % Normal 47-70 [facility] Comment on above: Performed By: #### L 502.0500, L500.4050, L500.4100, L100.0100, [id number] #### [facility] [address] [place], [address] Nucleated RBC (Bld) [#/Vol] 0 10*3/uL Normal 0-5 [facility] Comment on above: Performed By: #### L 502.0500, L500.4050, L500.4100, L100.0100, [id number] #### [facility] [address] [place], [address] Platelet mean volume (Bld) [Entitic vol] 11.7 fL Normal 6.2-12.0 [facility] Comment on above: Performed By: #### L 502.0500, L500.4050, L500.4100, L100.0100, [id number] #### [facility] [address] [place], [address] Platelets (Bld) [#/Vol] 204 10*3/uL Normal 150-450 [facility] Comment on above: Performed By: #### L 502.0500, L500.4050, L500.4100, L100.0100, [id number] #### [facility] [address] [place], [address] RBC (Bld) [#/Vol] 5.36 10*6/uL Normal 4.6-6.2 [facility] Comment on above: Performed By: #### L 502.0500, L500.4050, L500.4100, L100.0100, L501.9520 #### [facility] [address] [place], [address] RDW SD 43.8 fl Normal 35.1-43.9 [facility] Comment on above: Performed By: #### L 502.0500, L500.4050, L500.4100, L100.0100, L501.9520 #### [facility] [address] [place], [address] WBC (Bld) [#/Vol] 8.5 10*3/uL Normal 4.4-11.0 [facility] Comment on above: Performed By: #### L 502.0500, L500.4050, L500.4100, L100.0100, L501.9520 #### [facility] [address] [place], [address] Cardiology Visit Reporton Cardiology Visit Report [facility] [address] [place] [address] OFFICE VISIT Date of Service: 10/08/24 MR#: [id number] Acct: [id number] Name: NISA KASPER Rep #: [id number] : 1965 Provider: Dr. Aftab Ryder MD Age/Sex: 59/M Location: [facility] Status: Signed HPI HPI History of Present Illness Details: This is a 59-year-old gentleman who is here for follow-up evaluation for premature ventricular complexes. You remember he underwent a cardiac catheterization which demonstrated nonobstructive coronary disease in August 2020. He did have a reduced ejection fraction of 30% and was referred to the electrophysiology service. He underwent radiofrequency ablation in December 2020. He underwent an echocardiogram in March 2021 that showed ejection fraction 45%. He completed a 24-hour Holter monitor in March 2021 that showed an average heart rate of 91 bpm and no atrial fibrillation or ventricular tachycardia. He denies chest, arm, jaw, or neck discomfort. He states intermittent palpitations. This is not new or worsening. He denies bilateral lower extremity edema, but states intermittent left foot edema. He denies claudication. He denies shortness of breath with activity, shortness of breath at rest, orthopnea, or PND. He denies chronic cough. He denies significant, sudden weight gain. He states dizziness when his blood sugar is low. He denies lightheadedness, near-syncope, or syncope. He denies blood in urine, blood in stool, or epistaxis. He denies fever with chills. He denies myalgia. He denies fatigue. 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 Accompanied by: Self Is patient in pain?: No Allergies No Known Allergies Allergy (Verified 10/08/24 11:29) Medications ???Medication ???Instructions ???Recorded ???Confirmed ???Type carvedilol 25 mg tablet 25 mg PO BID #60 tabs 08/03/21 10/08/24 Rx omeprazole 40 mg capsule,delayed 40 mg PO DAILY 10/11/21 10/08/24 History release gabapentin 300 mg capsule 300 mg PO DAILY 03/29/23 10/08/24 History dapagliflozin propanediol 10 mg 10 mg PO DAILY #90 tabs 07/19/23 10/08/24 Rx tablet (Farxiga) rosuvastatin 10 mg tablet 10 mg PO QHS 10/08/24 10/08/24 History tirzepatide 10 mg/0.5 mL mg subcut 10/08/24 10/08/24 History subcutaneous pen injector (Wolfgang) [facility] Medical History Segmental and somatic dysfunction of thoracic region Segmental and somatic dysfunction of lumbar region Segmental and somatic dysfunction of pelvic region Back pain HNP (herniated nucleus pulposus), lumbar Retinal detachment of left eye due to tear of retina Gallbladder polyp Gastritis Non-ischemic cardiomyopathy Hyperlipidemia Fatigue Spinal stenosis Incomplete left bundle branch block Frequent unifocal premature ventricular contractions Type 2 diabetes mellitus Surgical History History of radiofrequency ablation procedure for cardiac arrhythmia (01/20/21) History of left heart catheterization (09/28/20) History of eye surgery Family History Mother Colon cancer Diabetes Brother Cancer testicle Father Heart disease cardiomyopathy Other Asthma Social History household members: none housing: house current occupational status: unemployed Smoking Status: Former smoker quit date: 10/30/99 second hand exposure: No alcohol intake: never substance use type: does not use caffeine: Yes (4) Type: carbonated beverages and coffee what type of physical activity do you participate in: walking and other details: PT Exercises do you feel safe at home: Yes ROS Const Const: Positive for headache(s); Negative for fatigue, weakness, daytime sleepiness or difficulty sleeping ENT ENT: Positive for headache(s); Negative for dizziness or Nosebleed/epistaxis Cardio Chest Pain: No Palpitations: No Edema: None Resp Respiratory: Negative for SOB with activity, SOB at rest, SOB orthopnea SOB lying down or Cough GI GI: Negative nausea, vomiting or heartburn Neuro Neuro: Positive for headache(s); Negative for dizziness, lightheadedness, near syncope, orthostatic symptoms or weakness Endo Endo: Negative for fatigue Cardiology Exam Const Appearance: cooperative, healthy appearing, comfortable and no acute distress Nutritional Appearance: well nourished and overweight (more content not included)... Normal [facility] Metabolic Prof njandrew 10-08-2024 Albumin [Mass/Vol] 4.2 g/dL Normal 3.2-5.0 [facility] Comment on above: Performed By: #### L 502.0500, L500.4050, L500.4100, L100.0100, L501.9520 #### [facility] [address] [place], [address] Albumin/Globulin [Mass ratio] 1.1 {ratio} Normal 0.9-2.4 [facility] Comment on above: Performed By: #### L 502.0500, L500.4050, L500.4100, L100.0100, L501.9520 #### [facility] [address] [place], [address] ALK P 63 U/L Normal 45-117 [facility] Comment on above: Performed By: #### L 502.0500, L500.4050, L500.4100, L100.0100, L501.9520 #### [facility] [address] [place], [address] ALT [Catalytic activity/Vol] 40 U/L Normal 16-61 [facility] Comment on above: Performed By: #### L 502.0500, L500.4050, L500.4100, L100.0100, L501.9520 #### [facility] [address] [place], [address] AST [Catalytic activity/Vol] 28 U/L Normal 15-37 [facility] Comment on above: Performed By: #### L 502.0500, L500.4050, L500.4100, L100.0100, L501.9520 #### [facility] [address] [place], [address] Bilirubin [Mass/Vol] 0.50 mg/dL Normal 0.20-1.00 [facility] Comment on above: Result Comment: For patients on eltrombopag therapy, use of Dimension Yale TBIL is not recommended. Performed By: #### L 502.0500, L500.4050, L500.4100, L100.0100, L501.9520 #### [facility] [address] [place], [address] BUN/CRE 15.9 RATIO Normal 10-20 [facility] Comment on above: Performed By: #### L 502.0500, L500.4050, L500.4100, L100.0100, L501.9520 #### [facility] [address] [place], [address] CA,Total 10.0 mg/dL Normal 8.5-10.1 [facility] Comment on above: Performed By: #### L 502.0500, L500.4050, L500.4100, L100.0100, L501.9520 #### [facility] [address] [place], [address] Chloride [Moles/Vol] 101 mmol/L Normal 98-107 [facility] Comment on above: Performed By: #### L 502.0500, L500.4050, L500.4100, L100.0100, L501.9520 #### [facility] [address] [place], [address] CO2 [Moles/Vol] 27.0 mmol/L Normal 21.0-32.0 [facility] Comment on above: Performed By: #### L 502.0500, L500.4050, L500.4100, L100.0100, L501.9520 #### [facility] [address] [place], [address] Creatinine [Mass/Vol] 0.94 mg/dL Normal 0.70-1.30 [facility] Comment on above: Result Comment: The validity of the calculated GFR GFRAA in patients over 70 years has not been determined. Clinical correlation is essential. Performed By: #### L 502.0500, L500.4050, L500.4100, L100.0100, L501.9520 #### [facility] [address] [place], [address] EST GFR - AA 105 mL/min Normal >60 [facility] Comment on above: Result Comment: Afri can [place] GFR Calc Performed By: #### L 502.0500, L500.4050, L500.4100, L100.0100, L501.9520 #### [facility] [address] [place], [address] GAP 7 Normal 5-15 [facility] Comment on above: Performed By: #### L 502.0500, L500.4050, L500.4100, L100.0100, L501.9520 #### [facility] [address] [place], [address] GFR/1.73 sq M.predicted among non-blacks MDRD (S/P/Bld) [Vol rate/Area] 87 mL/min/{1.73_m2} Normal >60 [facility] Comment on above: Result Comment: Non- GFR Calc Performed By: #### L 502.0500, L500.4050, L500.4100, L100.0100, L501.9520 #### [facility] [address] [place], [address] Globulin (S) [Mass/Vol] 3.9 g/dL Normal 2.2-4.2 [facility] Comment on above: Performed By: #### L 502.0500, L500.4050, L500.4100, L100.0100, L501.9520 #### [facility] [address] [place], [address] Glucose [Mass/Vol] 91 mg/dL Normal 74-106 [facility] Comment on above: Performed By: #### L 502.0500, L500.4050, L500.4100, L100.0100, L501.9520 #### [facility] [address] [place], [address] Potassium [Moles/Vol] 4.3 mmol/L Normal 3.5-5.1 [facility] Comment on above: Performed By: #### L 502.0500, L500.4050, L500.4100, L100.0100, L501.9520 #### [facility] [address] [place], [address] Sodium [Moles/Vol] 135 mmol/L Low 136-145 [facility] Comment on above: Performed By: #### L 502.0500, L500.4050, L500.4100, L100.0100, L501.9520 #### [facility] [address] [place], [address] T PROT 8.1 g/dL Normal 6.4-8.2 [facility] Comment on above: Performed By: #### L 502.0500, L500.4050, L500.4100, L100.0100, L501.9520 #### [facility] [address] [place], [address] Urea nitrogen [Mass/Vol] 15 mg/dL Normal 7-18 [facility] Comment on above: Performed By: #### L 502.0500, L500.4050, L500.4100, L100.0100, L501.9520 #### [facility] [address] [place], [address] Lipid Profileon 10-08-2024 Cholesterol [Mass/Vol] 136 mg/dL Normal 200 [facility] Comment on above: Result Comment: <200 mg/dL Desirable 200-240 mg/dL Borderline >240 mg/dL High Risk Performed By: #### L 502.0500, L500.4050, L500.4100, L100.0100, L501.9520 #### [facility] [address] [place], [address] Cholesterol in HDL [Mass/Vol] 37 mg/dL Low [facility] Comment on above: Result Comment: The drugs N-Acetylcysteine and Metamizole may falsely depress this assay. Reference Range HDL <40 mg/dL Low HDL Cholesterol HDL >or= 60 mg/dL High HDL Cholesterol Performed By: #### L 502.0500, L500.4050, L500.4100, L100.0100, L501.9520 #### [facility] [address] [place], [address] Cholesterol in LDL [Mass/Vol] 54 mg/dL Normal 0-130 [facility] Comment on above: Performed By: #### L 502.0500, L500.4050, L500.4100, L100.0100, L501.9520 #### [facility] [address] [place], [address] Cholesterol in VLDL [Mass/Vol] 45 mg/dL High 5-40 [facility] Comment on above: Performed By: #### L 502.0500, L500.4050, L500.4100, L100.0100, L501.9520 #### [facility] [address] [place], [address] Triglyceride [Mass/Vol] 223 mg/dL High [facility] Comment on above: Result Comment: The drugs N-Acetylcysteine and Metamizole may falsely depress this assay. Serum Triglycerides Reference Interval Normal <150 mg/dL Borderline high 150 - 199 mg/dL High 200 - 499 mg/dL Very High > or = 500 mg/dL Performed By: #### L 502.0500, L500.4050, L500.4100, L100.0100, L501.9520 #### [facility] [address] [place], [address] Microalbumin,Random Urineon 10-08-2024 MICROALBUMIN,UR 61.9 mg/L Normal NO RANGE EST. [facility] Comment on above: Performed By: #### L 502.0500, L500.4050, L500.4100, L100.0100, L501.9520 #### [facility] [address] [place], [address] Thyroid Stim Hormone (TSH)on 10-08-2024 TSH 1.260 uIU/mL Normal 0.358-3.740 [facility] Comment on above: Performed By: #### L 502.0500, L500.4050, L500.4100, L100.0100, L501.9520 #### [facility] [address] [place], [address] Microalbumin,Random Urineon 04-05-2024 MICROALBUMIN,UR 11.9 mg/L Normal NO RANGE EST. [facility] Comment on above: Performed By: #### L 501.9520, L502.0500, L500.4050, L100.0100, L500.4100 #### [facility] [address] [place], [address] CBC W/Diff, Automatedon 06-0 Absolute Lymph 1.74 X10 3/uL Normal 0.83-4.51 [facility] Comment on above: Performed By: #### L 501.9520, L502.0500, L500.4050, L100.0100, L500.4100 #### [facility] [address] [place], [address] Absolute Neut 3.7 X10 3/uL Normal 2.0-7.7 [facility] Comment on above: Performed By: #### L 501.9520, L502.0500, L500.4050, L100.0100, L500.4100 #### [facility] [address] [place], [address] Basophils/100 WBC (Bld) 0.9 % Normal 0-1 [facility] Comment on above: Performed By: #### L 501.9520, L502.0500, L500.4050, L100.0100, L500.4100 #### [facility] [address] [place], [address] Eosinophils/100 WBC (Bld) 2.0 % Normal 0-5 [facility] Comment on above: Performed By: #### L 501.9520, L502.0500, L500.4050, L100.0100, L500.4100 #### [facility] [address] [place], [address] Erythrocyte distribution width (RBC) [Ratio] 13.2 % Normal 11.6-14.6 [facility] Comment on above: Performed By: #### L 501.9520, L502.0500, L500.4050, L100.0100, L500.4100 #### [facility] [address] [place], [address] Hematocrit (Bld) [Volume fraction] 46.6 % Normal 40-54 [facility] Comment on above: Performed By: #### L 501.9520, L502.0500, L500.4050, L100.0100, L500.4100 #### [facility] [address] [place], [address] Hemoglobin (Bld) [Mass/Vol] 15.6 g/dL Normal 13.0-16.5 [facility] Comment on above: Performed By: #### L 501.9520, L502.0500, L500.4050, L100.0100, L500.4100 #### [facility] [address] [place], [address] IG% 0.200 Normal 0.0-0.9 [facility] Comment on above: Result Comment: IG% - Immature Granulocytes (promyelocytes, myelocytes and metamyelocytes) > 1% indicates that a LEFT SHIFT is Present. Performed By: #### L 501.9520, L502.0500, L500.4050, L100.0100, L500.4100 #### [facility] [address] [place], [address] Lymphocytes/100 WBC (Bld) 26.5 % Normal 19-41 [facility] Comment on above: Performed By: #### L 501.9520, L502.0500, L500.4050, L100.0100, L500.4100 #### [facility] [address] [place], [address] MCH (RBC) [Entitic mass] 30.1 pg Normal 27.0-32.0 [facility] Comment on above: Performed By: #### L 501.9520, L502.0500, L500.4050, L100.0100, L500.4100 #### [facility] [address] [place], [address] MCHC (RBC) [Mass/Vol] 33.5 g/dL Normal 32-36 [facility] Comment on above: Performed By: #### L 501.9520, L502.0500, L500.4050, L100.0100, L500.4100 #### [facility] [address] [place], [address] MCV (RBC) [Entitic vol] 90.0 fL Normal 80-94 [facility] Comment on above: Performed By: #### L 501.9520, L502.0500, L500.4050, L100.0100, L500.4100 #### [facility] [address] [place], [address] Monocytes/100 WBC (Bld) 14.2 % High 0-10 [facility] Comment on above: Performed By: #### L 501.9520, L502.0500, L500.4050, L100.0100, L500.4100 #### [facility] [address] [place], [address] Neutrophils/100 WBC (Bld) 56.2 % Normal 47-70 [facility] Comment on above: Performed By: #### L 501.9520, L502.0500, L500.4050, L100.0100, L500.4100 #### [facility] [address] [place], [address] Nucleated RBC (Bld) [#/Vol] 0 10*3/uL Normal 0-5 [facility] Comment on above: Performed By: #### L 501.9520, L502.0500, L500.4050, L100.0100, L500.4100 #### [facility] [address] [place], [address] Platelet mean volume (Bld) [Entitic vol] 11.3 fL Normal 6.2-12.0 [facility] Comment on above: Performed By: #### L 501.9520, L502.0500, L500.4050, L100.0100, L500.4100 #### [facility] [address] [place], [address] Platelets (Bld) [#/Vol] 229 10*3/uL Normal 150-450 [facility] Comment on above: Performed By: #### L 501.9520, L502.0500, L500.4050, L100.0100, L500.4100 #### [facility] [address] [place], [address] RBC (Bld) [#/Vol] 5.18 10*6/uL Normal 4.6-6.2 [facility] Comment on above: Performed By: #### L 501.9520, L502.0500, L500.4050, L100.0100, L500.4100 #### [facility] [address] [place], [address] RDW SD 43.5 fl Normal 35.1-43.9 [facility] Comment on above: Performed By: #### L 501.9520, L502.0500, L500.4050, L100.0100, L500.4100 #### [facility] [address] [place], [address] WBC (Bld) [#/Vol] 6.6 10*3/uL Normal 4.4-11.0 [facility] Comment on above: Performed By: #### L 501.9520, L502.0500, L500.4050, L100.0100, L500.4100 #### [facility] [address] [place], [address] Comprehensive Metabolic Prof [facility] 04-02-2024 Albumin [Mass/Vol] 4.1 g/dL Normal 3.2-5.0 [facility] Comment on above: Performed By: #### L 501.9520, L502.0500, L500.4050, L100.0100, L500.4100 #### [facility] [address] [place], [address] Albumin/Globulin [Mass ratio] 1.1 {ratio} Normal 0.9-2.4 [facility] Comment on above: Performed By: #### L 501.9520, L502.0500, L500.4050, L100.0100, L500.4100 #### [facility] [address] [place], [address] ALK P 61 U/L Normal 45-117 [facility] Comment on above: Performed By: #### L 501.9520, L502.0500, L500.4050, L100.0100, L500.4100 #### [facility] [address] [place], [address] ALT [Catalytic activity/Vol] 28 U/L Normal 16-61 [facility] Comment on above: Performed By: #### L 501.9520, L502.0500, L500.4050, L100.0100, L500.4100 #### [facility] [address] [place], [address] AST [Catalytic activity/Vol] 20 U/L Normal 15-37 [facility] Comment on above: Performed By: #### L 501.9520, L502.0500, L500.4050, L100.0100, L500.4100 #### [facility] [address] [place], [address] Bilirubin [Mass/Vol] 0.50 mg/dL Normal 0.20-1.00 [facility] Comment on above: Result Comment: For patients on eltrombopag therapy, use of Dimension [place] TBIL is not recommended. Performed By: #### L 501.9520, L502.0500, L500.4050, L100.0100, L500.4100 #### [facility] [address] [place], [address] BUN/CRE 25.7 RATIO High 10-20 [facility] Comment on above: Performed By: #### L 501.9520, L502.0500, L500.4050, L100.0100, L500.4100 #### [facility] [address] [place], [address] CA,Total 9.5 mg/dL Normal 8.5-10.1 [facility] Comment on above: Performed By: #### L 501.9520, L502.0500, L500.4050, L100.0100, L500.4100 #### [facility] [address] [place], [address] Chloride [Moles/Vol] 106 mmol/L Normal 98-107 [facility] Comment on above: Performed By: #### L 501.9520, L502.0500, L500.4050, L100.0100, L500.4100 #### [facility] [address] [place], [address] CO2 [Moles/Vol] 26.0 mmol/L Normal 21.0-32.0 [facility] Comment on above: Performed By: #### L 501.9520, L502.0500, L500.4050, L100.0100, L500.4100 #### [facility] [address] [place], [address] Creatinine [Mass/Vol] 0.89 mg/dL Normal 0.70-1.30 [facility] Comment on above: Result Comment: The validity of the calculated GFR GFRAA in patients over 70 years has not been determined. Clinical correlation is essential. Performed By: #### L 501.9520, L502.0500, L500.4050, L100.0100, L500.4100 #### [facility] [address] [place], [address] EST GFR - AA 112 mL/min Normal >60 [facility] Comment on above: Result Comment: Afri can [place] GFR Calc Performed By: #### L 501.9520, L502.0500, L500.4050, L100.0100, L500.4100 #### [facility] [address] [place], [address] GAP 6 Normal 5-15 [facility] Comment on above: Performed By: #### L 501.9520, L502.0500, L500.4050, L100.0100, L500.4100 #### [facility] [address] [place], [address] GFR/1.73 sq M.predicted among non-blacks MDRD (S/P/Bld) [Vol rate/Area] 92 mL/min/{1.73_m2} Normal >60 [facility] Comment on above: Result Comment: Non- GFR Calc Performed By: #### L 501.9520, L502.0500, L500.4050, L100.0100, L500.4100 #### [facility] [address] [place], [address] Globulin (S) [Mass/Vol] 3.8 g/dL Normal 2.2-4.2 [facility] Comment on above: Performed By: #### L 501.9520, L502.0500, L500.4050, L100.0100, L500.4100 #### [facility] [address] [place], [address] Glucose [Mass/Vol] 99 mg/dL Normal 74-106 [facility] Comment on above: Performed By: #### L 501.9520, L502.0500, L500.4050, L100.0100, L500.4100 #### [facility] [address] [place], [address] Potassium [Moles/Vol] 4.0 mmol/L Normal 3.5-5.1 [facility] Comment on above: Performed By: #### L 501.9520, L502.0500, L500.4050, L100.0100, L500.4100 #### [facility] [address] [place], [address] Sodium [Moles/Vol] 138 mmol/L Normal 136-145 [facility] Comment on above: Performed By: #### L 501.9520, L502.0500, L500.4050, L100.0100, L500.4100 #### [facility] [address] [place], [address] T PROT 7.9 g/dL Normal 6.4-8.2 [facility] Comment on above: Performed By: #### L [id number], L502.0500, L500.4050, L100.0100, L500.4100 #### [facility] [address] [place], [address] Urea nitrogen [Mass/Vol] 23 mg/dL High 7-18 [facility] Comment on above: Performed By: #### L [id number], L502.0500, L500.4050, L100.0100, L500.4100 #### [facility] [address] [place], [address] Lipid Profileon 04-02-2024 Cholesterol [Mass/Vol] 102 mg/dL Normal 200 [facility] Comment on above: Result Comment: <200 mg/dL Desirable 200-240 mg/dL Borderline >240 mg/dL High Risk Performed By: #### L [id number], L502.0500, L500.4050, L100.0100, L500.4100 #### [facility] [address] [place], [address] Cholesterol in HDL [Mass/Vol] 38 mg/dL Low [facility] Comment on above: Result Comment: The drugs N-Acetylcysteine and Metamizole may falsely depress this assay. Reference Range HDL <40 mg/dL Low HDL Cholesterol HDL >or= 60 mg/dL High HDL Cholesterol Performed By: #### L [id number], L502.0500, L500.4050, L100.0100, L500.4100 #### [facility] [address] [place], [address] Cholesterol in LDL [Mass/Vol] 25 mg/dL Normal 0-130 [facility] Comment on above: Performed By: #### L [id number], L502.0500, L500.4050, L100.0100, L500.4100 #### [facility] [address] [place], [place], [id number] Cholesterol in VLDL [Mass/Vol] 39 mg/dL Normal 5-40 [facility] Comment on above: Performed By: #### L [id number], L502.0500, L500.4050, L100.0100, L500.4100 #### [facility] [address] [place], [address] Triglyceride [Mass/Vol] 193 mg/dL Normal [facility] Comment on above: Result Comment: The drugs N-Acetylcysteine and Metamizole may falsely depress this assay. Serum Triglycerides Reference Interval Normal <150 mg/dL Borderline high 150 - 199 mg/dL High 200 - 499 mg/dL Very High > or = 500 mg/dL Performed By: #### L [id number], L502.0500, L500.4050, L100.0100, L500.4100 #### [facility] [address] [place], [address] Thyroid Stim Hormone (TSH)on 04-02-2024 TSH 1.81 uIU/mL Normal 0.358-3.74 [facility] Comment on above: Performed By: #### L [id number], L502.0500, L500.4050, L100.0100, L500.4100 #### [facility] [address] [place], [place], [id number] Basophil percentageOrdered B y: Denice Joshua on 10-19-2023 Bilirubin [Mass/Vol] 0.40 mg/dL 0.20-1.00 [facility] Comment on above: For patients on eltr ombopag therapy, use of Dimension Yale TBIL is not recommended. Chloride [Moles/Vol] 100 mmol/L 98-107 [facility] Cholesterol [Mass/Vol] 199 mg/dL <200 [facility] Comment on above: <200 mg/dL Desirable 200-240 mg/dL Borderline >240 mg/dL High Risk Glucose [Mass/Vol] 252 mg/dL 74-106 [facility] Comment on above: Glucose result great er than or equal to 200 mg/dLsuggests DIABETES MELLITUS per A.D.A. criteria. Potassium [Moles/Vol] 4.3 mmol/L 3.5-5.1 [facility] Comment on above: Slight Hemolysis, Re sult may be falsely increased. Protein [Mass/Vol] 7.5 g/dL 6.4-8.2 [facility] Sodium [Moles/Vol] 136 mmol/L 136-145 [facility] Triglyceride [Mass/Vol] 641 mg/dL <199 [facility] Comment on above: The drugs N-Acetylcy steine and Metamizole may falsely depress this assay. TRIGLYCERIDE IS GREATER THAN 400 mg/dL. LDL RESULT IS INVALID AND WILL NOT BE REPORTED.Serum Triglycerides Reference Interval Normal <150 mg/dL Borderline high 150 - 199 mg/dL High 200 - 499 mg/dL Very High > or = 500 mg/dL WBC (Bld) [#/Vol] 7.4 10*3/uL 4.4-11.0 [facility] Blood erythrocytes count (nu mber/volume)Ordered By: Denice Lewis on 10-19-2023 RBC (Bld) [#/Vol] 5.35 10*6/uL 4.6-6.2 [facility] Blood hemoglobin measurement (mass/volume)Ordered By: Denice Lewis on 10-19-2023 Hemoglobin (Bld) [Mass/Vol] 15.9 g/dL 13.0-16.5 [facility] Blood platelet mean volumeOr dered By: Denice Lewis on 10-19-2023 Platelet mean volume (Bld) [Entitic vol] 10.7 fL 6.2-12.0 [facility] Determination of erythrocyte mean corpuscular volume (MCV)Ordered By: Denice Lewis on 10-19-2023 MCV (RBC) [Entitic vol] 89.2 fL 80-94 [facility] Hematocrit Auto (Bld) [Volum e fraction]Ordered By: Denice Lewis on 10-19-2023 Hematocrit (Bld) [Volume fraction] 47.7 % 40-54 [facility] - Chemistry and C hemistry - challengeOrdered By: Denice Lewis on 10-19-2023 ALP [Catalytic activity/Vol] 57 U/L 45-117 [facility] ALT [Catalytic activity/Vol] 32 U/L 16-61 [facility] CO2 [Moles/Vol] 27.0 mmol/L 21.0-32.0 [facility] Globulin (S) [Mass/Vol] 3.9 g/dL 2.2-4.2 [facility] Urea nitrogen/Creatinine [Mass ratio] 24.3 mg/mg 10-20 [facility] - Hematology and Cell countsOrdered By: Denice Lewis on 10-19-2023 Erythrocyte distribution width (RBC) [Entitic vol] 43.7 fL 35.1-43.9 [facility] Erythrocyte distribution width (RBC) [Ratio] 13.5 % 11.6-14.6 [facility] MCH (RBC) [Entitic mass] 29.7 pg 27.0-32.0 [facility] MCHC Auto (RBC) [Mass/Vol]Or dered By: Denice Lewis on 10-19-2023 MCHC (RBC) [Mass/Vol] 33.3 g/dL 32-36 [facility] No Panel InformationOrdered By: Denice Lewis on 10-19-2023 Estimated GFR (MDRD) Amer 105 mL/min >60 [facility] Comment on above: GFR Calc Estimated GFR (MDRD) Non-Af Amer 87 mL/min >60 [facility] Comment on above: Non- GFR Calc Platelets bldOrdered By: Doreen Lewis on 10-19-2023 Platelets (Bld) [#/Vol] 292 10*3/uL 150-450 [facility] Serum or plasma albumin lor urement (mass/volume)Ordered By: Denice Lewis on 10-19-2023 Albumin [Mass/Vol] 3.6 g/dL 3.2-5.0 [facility] Serum or plasma albumin/glob ulin mass ratioOrdered By: Denice Lewis on 10-19-2023 Albumin/Globulin [Mass ratio] 0.9 {ratio} 0.9-2.4 [facility] Serum or plasma calcium lor urement (mass/volume)Ordered By: Denice Lewis on 10-19-2023 Calcium [Mass/Vol] 9.5 mg/dL 8.5-10.1 [facility] Serum or plasma cholesterol in HDL measurement (mass/volume)Ordered By: Denice Lewis on 10-19-2023 Cholesterol in HDL [Mass/Vol] 29 mg/dL >40 [facility] Comment on above: The drugs N-Acetylcy steine and Metamizole may falsely depress this assay. Reference Range HDL <40 mg/dL Low HDL Cholesterol HDL >or= 60 mg/dL High HDL Cholesterol Serum or plasma cholesterol in VLDL measurement (mass/volume)Ordered By: Denice Lewis on 10-19-2023 Cholesterol in VLDL [Mass/Vol] TNP [facility] Comment on above: Test not performed Serum or plasma creatinine m easurement (mass/volume)Ordered By: Denice Lewis on 10-19-2023 Creatinine [Mass/Vol] 0.95 mg/dL 0.70-1.30 [facility] Comment on above: The validity of the calculated GFR & GFRAA in patients over 70 years has not been determined. Clinical correlation is essential. Serum or plasma low density lipoprotein (LDL) cholesterol measurement (mass/volume)Ordered By: Denice Lewis on 10-19-2023 Cholesterol in LDL [Mass/Vol] TNP [facility] Comment on above: Test not performed Serum or plasma urea nitroge n measurement (mass/volume)Ordered By: Denice Lewis on 10-19-2023 Urea nitrogen [Mass/Vol] 23 mg/dL 7-18 [facility] Thin prep Papanicolaou smear with manual screeningOrdered By: Denice Lewis on 10-19-2023 Thin prep Papanicolaou smear with manual screening 19 U/L 15-37 [facility] Comment on above: Slight Hemolysis, Re sult may be falsely increased. Thin prep Papanicolaou smear with manual screening 9 5-15 [facility] Thin prep Papanicolaou smear with manual screening 24.7 mg/L NO RANGE EST. [facility] Basophil percentageOrdered B y: Denice Lewis on 03-23-2023 Bilirubin [Mass/Vol] 0.40 mg/dL 0.20-1.00 [facility] Comment on above: For patients on eltr ombopag therapy, use of Dimension Yale TBIL is not recommended. Chloride [Moles/Vol] 104 mmol/L 98-107 [facility] Cholesterol [Mass/Vol] 129 mg/dL <200 [facility] Comment on above: <200 mg/dL Desirable 200-240 mg/dL Borderline >240 mg/dL High Risk Glucose [Mass/Vol] 130 mg/dL 74-106 [facility] Comment on above: Fasting Glucose resu lt greater than or equal to 126 mg/dL suggests DIABETES MELLITUS per A.D.A. criteria. Potassium [Moles/Vol] 4.1 mmol/L 3.5-5.1 [facility] Protein [Mass/Vol] 7.4 g/dL 6.4-8.2 [facility] Sodium [Moles/Vol] 138 mmol/L 136-145 [facility] Triglyceride [Mass/Vol] 235 mg/dL <199 [facility] Comment on above: The drugs N-Acetylcy steine and Metamizole may falsely depress this assay.Serum Triglycerides Reference Interval Normal <150 mg/dL Borderline high 150 - 199 mg/dL High 200 - 499 mg/dL Very High > or = 500 mg/dL WBC (Bld) [#/Vol] 7.1 10*3/uL 4.4-11.0 [facility] Blood erythrocytes count (nu mber/volume)Ordered By: Denice Lewis on 03-23-2023 RBC (Bld) [#/Vol] 5.13 10*6/uL 4.6-6.2 [facility] Blood hemoglobin measurement (mass/volume)Ordered By: Denice Lewis on 03-23-2023 Hemoglobin (Bld) [Mass/Vol] 15.7 g/dL 13.0-16.5 [facility] Blood platelet mean volumeOr dered By: Denice Lewis on 03-23-2023 Platelet mean volume (Bld) [Entitic vol] 11.0 fL 6.2-12.0 [facility] Determination of erythrocyte mean corpuscular volume (MCV)Ordered By: Denice Lewis on 03-23-2023 MCV (RBC) [Entitic vol] 90.4 fL 80-94 [facility] Hematocrit Auto (Bld) [Volum e fraction]Ordered By: Denice Lewis on 03-23-2023 Hematocrit (Bld) [Volume fraction] 46.4 % 40-54 [facility] - Chemistry and C hemistry - challengeOrdered By: Denice Lewis on 03-23-2023 ALP [Catalytic activity/Vol] 59 U/L 45-117 [facility] ALT [Catalytic activity/Vol] 34 U/L 16-61 [facility] CO2 [Moles/Vol] 28.0 mmol/L 21.0-32.0 [facility] Globulin (S) [Mass/Vol] 3.7 g/dL 2.2-4.2 [facility] Urea nitrogen/Creatinine [Mass ratio] 21.7 mg/mg 10-20 [facility] - Hematology and Cell countsOrdered By: Denice Lewis on 03-23-2023 Erythrocyte distribution width (RBC) [Entitic vol] 43.0 fL 35.1-43.9 [facility] Erythrocyte distribution width (RBC) [Ratio] 13.1 % 11.6-14.6 [facility] MCH (RBC) [Entitic mass] 30.6 pg 27.0-32.0 [facility] MCHC Auto (RBC) [Mass/Vol]Or dered By: Denice Lewis on 03-23-2023 MCHC (RBC) [Mass/Vol] 33.8 g/dL 32-36 [facility] No Panel InformationOrdered By: Denice Lewis on 03-23-2023 Estimated GFR (MDRD) Amer 122 mL/min >60 [facility] Comment on above: GFR Calc Estimated GFR (MDRD) Non-Af Amer 101 mL/min >60 [facility] Comment on above: Non- GFR Calc Platelets bldOrdered By: Doreen Lewis on 03-23-2023 Platelets (Bld) [#/Vol] 225 10*3/uL 150-450 [facility] Serum or plasma albumin lor urement (mass/volume)Ordered By: Denice Lewis on 03-23-2023 Albumin [Mass/Vol] 3.7 g/dL 3.2-5.0 [facility] Serum or plasma albumin/glob ulin mass ratioOrdered By: Denice Lewis on 03-23-2023 Albumin/Globulin [Mass ratio] 1.0 {ratio} 0.9-2.4 [facility] Serum or plasma calcium lor urement (mass/volume)Ordered By: Denice Lewis on 03-23-2023 Calcium [Mass/Vol] 9.7 mg/dL 8.5-10.1 [facility] Serum or plasma cholesterol in HDL measurement (mass/volume)Ordered By: Denice Lewis on 03-23-2023 Cholesterol in HDL [Mass/Vol] 30 mg/dL >40 [facility] Comment on above: The drugs N-Acetylcy steine and Metamizole may falsely depress this assay. Reference Range HDL <40 mg/dL Low HDL Cholesterol HDL >or= 60 mg/dL High HDL Cholesterol Serum or plasma cholesterol in VLDL measurement (mass/volume)Ordered By: Denice Lewis on 03-23-2023 Cholesterol in VLDL [Mass/Vol] 47 mg/dL 5-40 [facility] Serum or plasma creatinine m easurement (mass/volume)Ordered By: Denice Lewis on 03-23-2023 Creatinine [Mass/Vol] 0.83 mg/dL 0.70-1.30 [facility] Comment on above: The validity of the calculated GFR & GFRAA in patients over 70 years has not been determined. Clinical correlation is essential. Serum or plasma low density lipoprotein (LDL) cholesterol measurement (mass/volume)Ordered By: Denice Lewis on 03-23-2023 Cholesterol in LDL [Mass/Vol] 52 mg/dL 0-130 [facility] Serum or plasma urea nitroge n measurement (mass/volume)Ordered By: Denice Lewis on 03-23-2023 Urea nitrogen [Mass/Vol] 18 mg/dL 7-18 [facility] Thin prep Papanicolaou smear with manual screeningOrdered By: Denice Lewis on 03-23-2023 Thin prep Papanicolaou smear with manual screening 24 U/L 15-37 [facility] Thin prep Papanicolaou smear with manual screening 6 5-15 [facility] Thin prep Papanicolaou smear with manual screening 39.0 mg/L NO RANGE EST. [facility] Whole blood hemoglobin A1c/t otal hemoglobin ratio (mass fraction)Ordered By: Denice Lewis on 03-23-2023 HbA1c (Bld) [Mass fraction] 7.2 % 3.8-5.6 [facility] Comment on above: Normal < 5.7 % Predi abetic 5.7 - 6.4 % Diabetic >or= 6.5 % Please note range changes. XR HIP LEFT W/PELVIS 4 VIEWS on 11-17-2022 XR HIP LEFT W/PELVIS 4 VIEWS ORIGINAL EXAMINATION: XRAY VIEWS OF THE LEFT HIP. 11/15/2022 11:15 am COMPARISON: None. HISTORY: ORDERING SYSTEM PROVIDED HISTORY: Reason for Exam: LEFT HIP PAIN FINDINGS: There is no acute fracture. The bones are in anatomic alignment. There are mild degenerative changes in the left hip. There is no radiopaque foreign body. IMPRESSION: No acute osseous abnormality. Interpreted by: Marlene Ventura MD Preliminary Report By: Marlene Ventura MD Electronically signed By Marlene Ventura MD Dictated Date: 11/17/2022 8:48:42 AM Prelim Date: 11/17/2022 8:49:18 AM Sign Date: 11/17/2022 8:49:18 AM Ordering Provider: [facility] REFERRING Normal [facility] ([place]) Basophil percentageon 2021 Chloride [Moles/Vol] 104 mmol/L 98-107 [facility] Work Phone: Cholesterol [Mass/Vol] 151 mg/dL <200 [facility] Work Phone: Comment on above: <200 mg/dL Desirable 200-240 mg/dL Borderline >240 mg/dL High Risk Glucose [Mass/Vol] 206 mg/dL 74-106 [facility] Work Phone: Comment on above: Glucose result great er than or equal to 200 mg/dLsuggests DIABETES MELLITUS per A.D.A. criteria. Potassium [Moles/Vol] 4.1 mmol/L 3.5-5.1 [facility] Work Phone: Sodium [Moles/Vol] 136 mmol/L 136-145 [facility] Work Phone: Triglyceride [Mass/Vol] 154 mg/dL <199 [facility] Work Phone: Comment on above: The drugs N-Acetylcy steine and Metamizole may falsely depress this assay.Serum Triglycerides Reference Interval Normal <150 mg/dL Borderline high 150 - 199 mg/dL High 200 - 499 mg/dL Very High > or = 500 mg/dL Laboratory - Chemistry and C hemistry - challengeon 09-07-2022 CO2 [Moles/Vol] 26.0 mmol/L 21.0-32.0 [facility] Work Phone: Urea nitrogen/Creatinine [Mass ratio] 23.4 mg/mg 10-20 [facility] Work Phone: No Panel Informationon 09-07 Estimated GFR (MDRD) Amer 134 mL/min >60 [facility] Work Phone: Comment on above: GFR Calc Estimated GFR (MDRD) Non-Af Amer 110 mL/min >60 [facility] Work Phone: Comment on above: Non- GFR Calc Serum or plasma calcium lor urement (mass/volume)on 09-07-2022 Calcium [Mass/Vol] 9.4 mg/dL 8.5-10.1 [facility] Work Phone: Serum or plasma cholesterol in HDL measurement (mass/volume)on 09-07-2022 Cholesterol in HDL [Mass/Vol] 36 mg/dL >40 [facility] Work Phone: Comment on above: The drugs N-Acetylcy steine and Metamizole may falsely depress this assay. Reference Range HDL <40 mg/dL Low HDL Cholesterol HDL >or= 60 mg/dL High HDL Cholesterol Serum or plasma cholesterol in VLDL measurement (mass/volume)on 09-07-2022 Cholesterol in VLDL [Mass/Vol] 31 mg/dL 5-40 [facility] Work Phone: Serum or plasma creatinine m easurement (mass/volume)on 09-07-2022 Creatinine [Mass/Vol] 0.77 mg/dL 0.70-1.30 [facility] Work Phone: Comment on above: The validity of the calculated GFR & GFRAA in patients over 70 years has not been determined. Clinical correlation is essential. Serum or plasma low density lipoprotein (LDL) cholesterol measurement (mass/volume)on 09-07-2022 Cholesterol in LDL [Mass/Vol] 84 mg/dL 0-130 [facility] Work Phone: Serum or plasma urea nitroge n measurement (mass/volume)on 09-07-2022 Urea nitrogen [Mass/Vol] 18 mg/dL 7-18 [facility] Work Phone: Thin prep Papanicolaou smear with manual screeningon 09-07-2022 Thin prep Papanicolaou smear with manual screening 6 5-15 [facility] Work Phone: Whole blood hemoglobin A1c/t otal hemoglobin ratio (mass fraction)on 09-07-2022 HbA1c (Bld) [Mass fraction] 8.6 % 3.8-5.6 [facility] Work Phone: Comment on above: Normal < 5.7 % Predi abetic 5.7 - 6.4 % Diabetic >or= 6.5 % Please note range changes. CBC,PLATELETSon 01-21-2021 Hematocrit (Bld) [Volume fraction] 38.5 % Low 39.6-48.8 [facility] Comment on above: Performed By: #### [facility] #### [place] (DEFAULT) [address] [address] Hemoglobin (Bld) [Mass/Vol] 13.3 g/dL Low 13.4-16.8 [facility] Comment on above: Performed By: #### [facility] #### [place] (DEFAULT) [address] [address] MCV (RBC) [Entitic vol] 87.7 fL Normal 79.0-94.5 [facility] Comment on above: Performed By: #### [facility] #### [place] (DEFAULT) [address] [address] Mean Cell Hgb 30.3 pg Normal 26.1-33.3 [facility] Comment on above: Performed By: #### [facility] #### [place] (DEFAULT) [address] [place] [address] Mean Cell Hgb Conc 34.5 g/dL Normal 31.9-36.5 [facility] Comment on above: Performed By: #### H EMOGC #### U [facility] (DEFAULT) [address] [address] Platelet mean volume (Bld) [Entitic vol] 10.0 fL Normal 8.7-12.3 [facility] Comment on above: Performed By: #### H EMOGC #### [facility] (DEFAULT) [address] [place] [address] Platelets (Bld) [#/Vol] 216 10*3/uL Normal 146-337 [facility] Comment on above: Performed By: #### H EMO #### [place] (DEFAULT) [address] [address] RBC (Bld) [#/Vol] 4.39 10*6/uL Normal 4.38-5.83 [facility] Comment on above: Performed By: #### H EMOGC #### [place] (DEFAULT) [address] [address] RBC (Bld) [#/Vol] 12.4 % Normal 10.9-14.3 [facility] Comment on above: Performed By: #### H EMOGC #### [place] (DEFAULT) [address] [address] WBC (Bld) [#/Vol] 8.19 10*3/uL Normal 3.73-10.10 [facility] Comment on above: Performed By: #### H EMOGC #### [place] (DEFAULT) [address] [address] CHEM 6 (LYTES, BUN CREA)on 0 01-21-2021 Anion gap [Moles/Vol] 11 mmol/L Normal 7-17 [facility] Comment on above: Performed By: #### M DANE CHM6 #### [place] (DEFAULT) [address] [place] [address] Chloride [Moles/Vol] 102 mmol/L Normal 98-108 [facility] Comment on above: Performed By: #### Fabby VELA CHM6 #### [place] (DEFAULT) [address] [place] [address] CO2 [Moles/Vol] 27 mmol/L Normal 22-30 [facility] Comment on above: Performed By: #### Fabby VELA CHM6 #### U [facility] (DEFAULT) [address] [place] [address] Creatinine [Mass/Vol] 0.61 mg/dL Low 0.70-1.30 [facility] Comment on above: Performed By: #### Fabby VELA CHM6 #### [place] (DEFAULT) [address] [place] [address] EST GFR, >=60 Normal >=60 [facility] Comment on above: Performed By: #### Fabby VELA CHM6 #### [place] (DEFAULT) [address] [place] [address] EST GFR,Non >=60 Normal >=60 [facility] Comment on above: Performed By: #### Fabby VELA CHM6 #### [place] (DEFAULT) [address] [place] [address] Potassium [Moles/Vol] 3.8 mmol/L Normal 3.5-5.0 [facility] Comment on above: Performed By: #### Fabby VELA CHM6 #### [place] (DEFAULT) [address] [place] [address] Sodium [Moles/Vol] 136 mmol/L Normal 133-143 [facility] Comment on above: Performed By: #### Fabby VELA CHM6 #### [place] (DEFAULT) [address] [place] [address] Urea nitrogen [Mass/Vol] 12 mg/dL Normal 7-22 [facility] Comment on above: Performed By: #### Fabby VELA CHM6 #### [place] (DEFAULT) [address] [place] [address] Urea nitrogen/Creatinine [Mass ratio] 20 mg/mg Normal [facility] Comment on above: Performed By: #### Fabby VELA CHM6 #### [place] (DEFAULT) [address] [place] [address] MAGNESIUMon 01-21-2021 Magnesium [Mass/Vol] 1.7 mg/dL Normal 1.6-2.6 [facility] Comment on above: Performed By: #### REBECCA HUFF6 #### [place] (DEFAULT) [address] [place] [address] CBC AND ELECTRONIC DIFFon Basophils (Bld) [#/Vol] 0.05 10*3/uL Normal 0.00-0.09 [facility] Comment on above: Performed By: #### L [id number] #### [place] (DEFAULT) [address] [place] [address] Basophils/100 WBC (Bld) 0.7 % Normal [facility] Comment on above: Performed By: #### L [id number] #### [place] (DEFAULT) [address] [place] [address] DIFF STATUS Electronic Differential Normal [facility] Comment on above: Performed By: #### L [id number] #### [place] (DEFAULT) [address] [address] Eosinophils (Bld) [#/Vol] 0.06 10*3/uL Normal 0.00-0.48 [facility] Comment on above: Performed By: #### L [id number] #### [place] (DEFAULT) [address] [address] Eosinophils/100 WBC (Bld) 0.8 % Normal [facility] Comment on above: Performed By: #### L [id number] #### [place] (DEFAULT) [address] [address] Hematocrit (Bld) [Volume fraction] 41.4 % Normal 39.6-48.8 [facility] Comment on above: Performed By: #### L AB980 #### [place] (DEFAULT) [address] [address] Hemoglobin (Bld) [Mass/Vol] 14.6 g/dL Normal 13.4-16.8 [facility] Comment on above: Performed By: #### L [id number] #### U [facility] (DEFAULT) [address] [address] Immature Grans % 0.3 % Normal [facility] Comment on above: Performed By: #### L [id number] #### [place] (DEFAULT) [address] [address] Immature Grans Absolute <0.04 Normal <=0.08 [facility] Comment on above: Performed By: #### L [id number] #### [place] (DEFAULT) [address] [address] Lymphocytes (Bld) [#/Vol] 1.99 10*3/uL Normal 0.83-3.57 [facility] Comment on above: Performed By: #### L [id number] #### [place] (DEFAULT) [address] [address] Lymphocytes/100 WBC (Bld) 27.5 % Normal [facility] Comment on above: Performed By: #### L [id number] #### [facility] (DEFAULT) [address] [address] MCV (RBC) [Entitic vol] 87.3 fL Normal 79.0-94.5 [facility] Comment on above: Performed By: #### L [id number] #### [place] (DEFAULT) [address] [address] Mean Cell Hgb 30.8 pg Normal 26.1-33.3 [facility] Comment on above: Performed By: #### L [id number] #### [place] (DEFAULT) [address] [address] Mean Cell Hgb Conc 35.3 g/dL Normal 31.9-36.5 [facility] Comment on above: Performed By: #### L [id number] #### [place] (DEFAULT) [address] [address] Monocytes (Bld) [#/Vol] 0.81 10*3/uL Normal 0.24-0.93 [facility] Comment on above: Performed By: #### L [id number] #### [place] (DEFAULT) [address] [address] Monocytes/100 WBC (Bld) 11.2 % Normal [facility] Comment on above: Performed By: #### L [id number] #### [place] (DEFAULT) [address] [address] Nucleated RBC (Bld) [#/Vol] 0.0 /100 WBC Normal <=0.2 [facility] Comment on above: Performed By: #### L [id number] #### [place] (DEFAULT) [address] [address] Platelet mean volume (Bld) [Entitic vol] 10.5 fL Normal 8.7-12.3 [facility] Comment on above: Performed By: #### L [id number] #### [place] (DEFAULT) [address] [address] Platelets (Bld) [#/Vol] 240 10*3/uL Normal 146-337 [facility] Comment on above: Performed By: #### L [id number] #### [place] (DEFAULT) [address] [address] RBC (Bld) [#/Vol] 12.4 % Normal 10.9-14.3 [facility] Comment on above: Performed By: #### L [id number] #### [place] (DEFAULT) [address] [place] [address] RBC (Bld) [#/Vol] 4.74 10*6/uL Normal 4.38-5.83 [facility] Comment on above: Performed By: #### L [id number] #### [place] (DEFAULT) [address] [place] [address] Segs + Bands Auto 59.5 % Normal [facility] Comment on above: Performed By: #### L [id number] #### [facility] (DEFAULT) [address] [place] [address] Segs + Bands,Absolute Auto 4.31 K/uL Normal 1.57-6.19 [facility] Comment on above: Performed By: #### L [id number] #### [place] (DEFAULT) [address] [place] [address] WBC (Bld) [#/Vol] 7.24 10*3/uL Normal 3.73-10.10 [facility] Comment on above: Performed By: #### L [id number] #### [place] (DEFAULT) [address] [place] [address] CHEM 7 (LYTES,BUN,CREA,GLUC) on 01-20-2021 Anion gap [Moles/Vol] 11 mmol/L Normal 7-17 [facility] Comment on above: Performed By: #### C HM7 #### [place] (DEFAULT) [address] [place] [address] Chloride [Moles/Vol] 99 mmol/L Normal 98-108 [facility] Comment on above: Performed By: #### C HM7 #### [place] (DEFAULT) [address] [place] [address] CO2 [Moles/Vol] 28 mmol/L Normal 22-30 [facility] Comment on above: Performed By: #### C HM7 #### [place] (DEFAULT) [address] [place] [address] Creatinine [Mass/Vol] 0.78 mg/dL Normal 0.70-1.30 [facility] Comment on above: Performed By: #### C HM7 #### [facility] (DEFAULT) [address] [address] EST GFR, >=60 Normal >=60 [facility] Comment on above: Performed By: #### C HM7 #### [facility] (DEFAULT) [address] [address] EST GFR,Non >=60 Normal >=60 [facility] Comment on above: Performed By: #### C HM7 #### [facility] (DEFAULT) [address] [address] Glucose [Mass/Vol] 154 mg/dL High 70-99 [facility] Comment on above: Performed By: #### C HM7 #### [facility] (DEFAULT) [address] [address] Osmolality [Osmolality] 288 mOsm/kg Normal 278-305 [facility] Comment on above: Performed By: #### C HM7 #### [facility] (DEFAULT) [address] [address] Potassium [Moles/Vol] 3.9 mmol/L Normal 3.5-5.0 [facility] Comment on above: Performed By: #### C HM7 #### [facility] (DEFAULT) [address] [address] Sodium [Moles/Vol] 134 mmol/L Normal 133-143 [facility] Comment on above: Performed By: #### C HM7 #### [facility] (DEFAULT) [address] [address] Urea nitrogen [Mass/Vol] 21 mg/dL Normal 7-22 [facility] Comment on above: Performed By: #### C HM7 #### [facility] (DEFAULT) [address] [address] Urea nitrogen/Creatinine [Mass ratio] 27 mg/mg Normal [facility] Comment on above: Performed By: #### C HM7 #### 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 Arrives for PVC ablation Rhythm is SR with frequent isolated PVCs with RB/IA Completed detailed mapping of CS with 3D mapping system. Completed pacing and mapping of RA, RV and distal CS with and without isuprel. Completed EPS - normal SA, AV and HV No inducible SVT Completed detailed mapping of CS Rather yanelis;lenging to navigate CS to distal aspect and was eventually successful. At distal CS, pace mapping in CS (CL 500ms) and activation mapping showed area of early endocardial activation and excellent pace mapping just proximal to the anterior interventiruclar branch. First ablation at this site was successful and delivered multiple ablation lesions in the surrounding area Post ablation, we injected contrast into CS and the distal CS arborized into multiple small branches just distal to an area of stenosis, which was the site of successful RFA Infused isuprel at 3 and then 5ugm and no PVCs PLAN 1. Monitor overnight 2. All f/u with Dr. Ryder with 24 hour Holter and surface ECHO in 3 months 3. Continue current medical therapy 4. No AAD therapy Nisa Ray Amsbetty EP Procedure - EPS/Ablation/Device Ordering Physician: TAYE EVERETT Order #: [id number] Study Date: 01/20/2021 Patient Information Name MRN Description Nisa Kasper [id number] 55 y.o. 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 Arrives for PVC ablation Rhythm is SR with frequent isolated PVCs with RB/IA Completed detailed mapping of CS with 3D mapping system. Completed pacing and mapping of RA, RV and distal CS with and without isuprel. Completed EPS - normal SA, AV and HV No inducible SVT Completed detailed mapping of CS Rather yanelis;lenging to navigate CS to distal aspect and was eventually successful. At distal CS, pace mapping in CS (CL 500ms) and activation mapping showed area of early endocardial activation and excellent pace mapping just proximal to the anterior interventiruclar branch. First ablation at this site was successful and delivered multiple ablation lesions in the surrounding area Post ablation, we injected contrast into CS and the distal CS arborized into multiple small branches just distal to an area of stenosis, which was the site of successful RFA Infused isuprel at 3 and then 5ugm and no PVCs PLAN 1. Monitor overnight 2. All f/u with Dr. Ryder with 24 hour Holter and surface ECHO in 3 months 3. Continue current medical therapy 4. No AAD therapy Consent The procedure was explained including the potential risks of infection, heart perforation, re-operation, and other risks pertinent to procedure. Informed consent and permission to proceed was given. ` Venogram A venogram was performed on the coronary sinus. Injected with hand injection. Injected volume = 20 mL. Interval Collection conditions: baseline. Type of rhythm: sinus rhythm. Ventricular cycle length: 810 ms. A-H: 70 ms. H-V: 55 ms. Atrial Pacing Atrial site studied: left atrium via coronary sinus. Collection conditions: baseline. Drive cycle length: 600 ms. Atrial site studied: low right atrium. Collection conditions: post RF ablation. Longest SNRT: 1140 ms. Sinus cycle length: 810 ms. CSNRT: 330 ms. AV Wenckebach interval: 500 ms. Atrial site studied: high right atrium. Collection conditions: during drug infusion. Drug administered: isoproterenol. AV Wenckebach interval: 460 ms. Ventricular Pacing Site paced: right ventricle apex. Collection conditions: post RF ablation. Ventriculoatrial dissociation. Ablation Ablation Site: coronary sinus. Arrhythmia Type: PVCs. System used: Carto (3D). Catheter successful. Energy type: radio frequency. Irrigation method: open irrigation cool tip. The ablation procedure was successful. Post ablation rhythm: NSR . Temperature achieved: 28 C. Energy delivered: 21 weldon. Max weldon: 29 weldon. Impedance: 125 ohms. Duration of energy delivered: 391 seconds. Num of energy applications: 7. There were no complications during the procedure. There is no junctional rhythm during energy delivery. ` Implants No implant documentation for this case. Fluoro Time - EP Fluoro time = 19.2 minutes. Total dose = 74 mGy. Total DAP = 9.77 Gy-cm2. Measurements BSA: 1.83 m2 Complications Complications documented before study signed (01/20/2021 12:51 PM) No complications were associated with this study. Documented by Taye Everett MD - 01/20/2021 12:12 PM Normal [facility] PT,INR,PTTon 01-20-2021 aPTT Coag (Bld) [Time] 29.0 s Normal 24.0-34.3 [facility] Comment on above: Performed By: #### P TPTT #### [facility] (DEFAULT) [address] [place] [address] INR Coag (PPP) [Relative time] 1.0 {INR} Normal 0.9-1.1 [facility] Comment on above: Performed By: #### P TPTT #### [facility] (DEFAULT) [address] [place] [address] PT Coag (PPP) [Time] 13.3 s Normal 11.9-14.2 [facility] Comment on above: Performed By: #### P TPTT #### [place] (DEFAULT) [address] [place] [address] Vital Signs Date Time Vital Sign Value Performing Clinician Christian martinez 07-19-2023 10:18-0400 Body height 172.72 cm [facility] Work Phone: [facility] 07-19-2023 10:18-0400 Body mass index (BMI) [Ratio] 29.2 kg/m2 [facility] Work Phone: [facility] 07-19-2023 10:18-0400 Body weight 87.08 kg [facility] Work Phone: [phone] [place] [address] 07-19-2023 10:18-0400 Diastolic blood pressure 97 mm[Hg] [facility] Work Phone: [facility] 07-19-2023 10:18-0400 Heart rate 92 /min [facility] Work Phone: [phone])746-924450 [place] [address] 07-19-2023 10:18-0400 Respiratory rate 18 /min [facility] Work Phone: 2(851)371-992950 [place] [address] 07-19-2023 10:18-0400 SaO2% (BldA) [Mass fraction] 99 % [facility] Work Phone: 0(735)[phone] [address] 07-19-2023 10:18-0400 Systolic blood pressure 137 mm[Hg] [facility] Work Phone: [phone])[phone] [address] 03-23-2023 14:50-0400 Body height 172.72 cm [facility] Work Phone: [phone])[phone] [address] 07-19-2022 09:18-0400 Body height 172.72 cm [facility] Work Phone: [facility] Work Phone: 07-19-2022 09:18-0400 Body mass index (BMI) [Ratio] 27 kg/m2 [facility] Work Phone: [facility] Work Phone: 07-19-2022 09:18-0400 Body weight 80.73 kg [facility] Work Phone: [facility] Work Phone: 07-19-2022 09:18-0400 Diastolic blood pressure 98 mm[Hg] [facility] Work Phone: [facility] Work Phone: 07-19-2022 09:18-0400 Heart rate 74 /min [facility] Work Phone: [facility] Work Phone: 07-19-2022 09:18-0400 Respiratory rate 16 /min [facility] Work Phone: [facility] Work Phone: 07-19-2022 09:18-0400 SaO2% (BldA) [Mass fraction] 98 % [facility] Work Phone: [facility] Work Phone: 07-19-2022 09:18-0400 Systolic blood pressure 138 mm[Hg] [facility] Work Phone: [facility] Work Phone: Encounters Encounter Date Encounter Type Care Provider Facility Start: 12-09-2024 End: 02-08-2025 Follow-up encounter Bryan Testmike Work Phone: Podiatry Start: 12-06-2024 End: 12-06-2024 ambulatory REYES GUTIÉRREZ Facility:[facility] Start: 11-14-2024 End: 11-14-2024 ambulatory BRYAN AMATO Facility:[facility] Start: 11-14-2024 End: 11-14-2024 Patient encounter procedure Bryan Brenda Work Phone: Podiatry Comment on above: Diabetic polyneuropa thy associated with type 2 diabetes mellitus (HCC) (Primary Dx); Diminished pulses in lower extremity; Abrasion of left foot, initial encounter Start: 11-14-2024 ambulatory BRYAN AMATO Facili ty:[facility] Start: 10-21-2024 End: 10-21-2024 Orders Only Bryan Amato Work Phone: Referring Physician Comment on above: Pain (Primary Dx) Start: 10-08-2024 End: 10-08-20[facility] Start: 10-08-2024 End: 10-08-2024 ambulatory [facility] Facility:[facility] Start: 04-02-2024 End: 04-02-2024 ambulatory [facility] Facility:[facility] Start: 10-19-2023 End: 10-19-[address] [facility] Work Phone: [facility] Work Phone: Start: 10-19-2023 End: 10-19-2023 Patient encounter procedure [facility] Work Phone: [facility] Work Phone: Start: 08-07-2023 Non-patient / Non-visit [facility] Work Phone: [facility] Work Phone: Start: 08-07-2023 Non-patient / Non-visit [facility] Work Phone: [facility] Start: 08-07-2023 End: 08-07-[address] [facility] Work Phone: [facility] Work Phone: Start: 08-07-2023 End: 08-07-2023 Patient encounter procedure [facility] Work Phone: [facility] Work Phone: Start: 07-19-2023 End: 07-19-2023 Patient encounter procedure [facility] Work Phone: [facility] Work Phone: Start: 03-29-2023 End: 03-29-2023 Patient encounter procedure [facility] Work Phone: [facility] Work Phone: Start: 03-23-2023 End: 03-23-[address] [facility] Work Phone: [facility] Work Phone: Start: 03-23-2023 End: 03-23-2023 Patient encounter procedure [facility] Work Phone: [facility] Work Phone: Start: 11-15-2022 End: 11-16-2022 ambulatory PHY PHY WO ID REFERRING REFERRING Facility:A Start: 11-15-2022 End: 11-15-2022 Patient encounter procedure PHY WO ID REFERRING [facility] Start: 09-07-2022 End: 09-07-[address] [facility] Work Phone: [facility] Work Phone: Start: 09-07-2022 End: 09-07-2022 Patient encounter procedure [facility] Work Phone: [facility] Start: 07-19-2022 End: 07-19-2022 Patient encounter procedure [facility] Work Phone: [facility] Start: 08-12-2021 End: 08-12-2021 Patient encounter procedure Bryan Brenda Work Phone: Podiatry Comment on above: Diabetic mononeuropa thy associated with diabetes mellitus due to underlying condition (HCC) (Primary Dx) Start: 01-20-2021 End: 01-21-2021 Patient encounter procedure TAYE EVERETT Facility:[facility] Procedures Date Procedure Procedure Detail Performing Clinician Start: 10-05-2020 Colonoscopy Bryan Boss Work Phone: Plan of Treatment Date Care Activity Detail Author Start: 2039 RSV Vaccine (1 - 1-d ose 75+ series) RSV Vaccine (1 - 1-dose 75+ series) [facility] Start: 12-06-2024 End: 12-06-2024 Patient encounter procedure 12/06/2024 10:00 AM EST Office Visit [facility] [address] [place] [address] Diabetic polyneuropathy associated with type 2 diabetes mellitus (HCC) [E11.42] [facility] Comment on above: Diabetic polyneuropa thy associated with type 2 diabetes mellitus (HCC) [E11.42] Start: 11-14-2024 End: 11-14-2024 Patient encounter procedure Radiology Comment on above: XR FOOT GENERAL 3V A P/LAT/OBL BILATERAL diabetic foot exam; Neuropathy Start: 06-30-2024 Covid-19 Vaccine ( season) Covid-19 Vaccine ( season) [facility] Start: 06-30-2024 Influenza vaccination Influenza Vacc ine (#1) [facility] Start: 01-22-2024 Diabetes Screening Diabetes Screenin g [facility] Start: 03-29-2023 Patient referral [facility] Work Phone: Start: 10-05-2021 Screening for malign ant neoplasm of colon [facility] Start: 06-30-2021 Influenza vaccination INFLUENZA (#1) [facility] Start: 2019 PROSTATE CANCER SCREENING DISCUSSION PROSTATE CANCER SCREENING DISCUSSION [facility] Start: 2019 Prostate specific antigen measurement Prostate Cancer Screening Discussion [facility] Start: 2014 Pneumococcal Vaccine : 50+ (1 of 1 - PCV) Pneumococcal Vaccine: 50+ (1 of 1 - PCV) [facility] Start: 2014 SHINGRIX VACCINE (1 of 2) SHINGRIX VACCINE (1 of 2) [facility] Start: 2009 COLOGUARD (FIT-DNA) COLOGUARD (FIT-D NA) [facility] Start: 2009 Colonoscopy COLONOSCOPY [facility] Start: 2009 COLORECTAL CANCER SCREENING COLORECTAL CANCER SCREENING [facility] Start: [address] COLONOGRAPHY [facility] Start: 2009 DIABETES SCREEN DIABETES SCREEN [facility] Start: 2009 FECAL OCCULT BLOOD FECAL OCCULT BLOO D [facility] Start: 2009 Screening for malign ant neoplasm of colon [facility] Start: 2009 SIGMOIDOSCOPY SIGMOIDOSCOPY [facility] Start: 1999 Lipid panel Lipid Screening [facility] Start: 1999 LIPID SCREEN LIPID SCREEN [facility] Start: 1983 Urine microalbumin profile [facility] Start: 1982 Anxiety Screening Anxiety Screening [facility] Start: 1982 Depression Screening Depression Scre [facility] Start: 1982 HEPATITIS C SCREENING HEPATITIS C [facility] Start: 1982 Hepatitis C screening Hepatitis C [facility] Start: 1982 HIV SCREENING HIV SCREENING [facility] Start: 1982 HIV screening HIV Screening [facility] Start: 1976 Adult depression screening assessment DEPRESSION SCREENING [facility] Start: 1976 COVID-19 VACCINE (1) COVID-19 VACCIN E (1) [facility] Patient referral [facility] Work Phone: End: 11-14-2025 US.doppler Extremity arteries - bilateral for physiologic artery study PVR ANK PRESS [facility] Lab Routine Diabetic polyneuropathy associated with type 2 diabetes mellitus (HCC) Diminished pulses in lower extremity 1 Occurrences starting 11/14/2024 until 11/14/2025 [facility] Work Phone: Comment on above: 1 Occurrences starti ng 11/14/2024 until 11/14/2025 End: 11-20-2025 XR Foot - bilateral AP and Lateral and oblique XR FOOT GENERAL 3V AP/LAT/OBL BILATERAL Radiology Routine Pain 1 Occurrences starting 10/21/2024 until 11/20/2025 [facility] Work Phone: Comment on above: 1 Occurrences starti ng 10/21/2024 until 11/20/2025 Payers Date Payer Category Payer Self-pay [id number] 2022 Medicaid [id number] 2022 Unknown [id number] 2022 Unknown [id number] 2020 Unknown [id number] 2016 Medicaid [employer] [id number] 2016-Present Medicaid [id number] 1964 Unknown [id number] 1964 Unknown [id number] Unknown [id number] Unknown [id number] Unknown [id number] Social History Date Type Detail Facility Start: 08-12-2021 Tobacco smoking stat us NHIS Former smoker [facility] Start: 08-12-2021 Tobacco use and exposure Former user [facility] Start: 08-12-2021 End: 11-14-2024 Alcohol intake Ex-drinker (finding) [facility] Start: 1965 Sex Assigned At Not on file [facility] Start: 07-19-2022 End: 07-19-2023 Tobacco smoking status [facility] Unknown if ever smoked [facility] Start: 09-30-2020 Non-smoker [facility] Start: 1965 Sex Assigned At Male [facility] Tobacco smoking status Never smo ked tobacco (finding) [facility] Sex Assigned At Sex [facility] History of tobacco use Current smoker [facility] Start: 08-12-2021 End: 11-14-2024 History of Social function [facility] Start: 08-12-2021 End: 11-14-2024 Tobacco use panel [facility] National Score (1-10 0), lower number is lower risk Not on file [facility] Goals Date Patient Goal Desired Activity /State Clinical Notes 08-12-2021 to 01-06-2025 Result Encounter Note - Mariam Li RN - 01/06/2025 4:21 PM EDTResult Encounter Note - Mariam Li RN - 01/06/2025 4:21 PM EDTPatient Bryan Cervantes - 11/14/2024 9:03 AM EST Note Date & Type Note Facility 01-06-2025 Progress note Formatting of t his note might be different from the original. 3rd attempt to contact patient, no answer. Voicemail box is full. Letter mailed to address on file for patient to contact our office to receive results. [facility] 01-06-2025 Miscellaneous Notes 3rd attempt to contact patient, no answer. Voicemail box is full. Letter mailed to address on file for patient to contact our office to receive results. 2nd attempt to contact both number. [phone] states the number has been disconnected. Other number listed in chart mailbox is full. Dianna Rahman LPN Called both numbers on file. [phone] - says the number has been disconnected and the other primary number's mailbox is full therefore I was unable to leave a message. documented in this encounter [facility] 12-18-2024 Telephone encounter Note 2nd attempt to contact both number. [phone] states the number has been disconnected. Other number listed in chart mailbox is full. Dianna Rahman LPN [facility] 12-09-2024 Progress note Formatting of t his note might be different from the original. Called both numbers on file. [phone] - says the number has been disconnected and the other primary number's mailbox is full therefore I was unable to leave a message. [facility] 11-14-2024 Instructions Bryan Amato - 11/14/2024 9:08 AM EST Diabetes Foot Care Instructions When you have diabetes, proper foot care is very important. Poor foot care may lead to amputation of a foot or leg. As a person with diabetes, you are more vulnerable to foot problems, because diabetes can damage your nerves and reduce blood flow to your feet. Here are some diabetes foot care tips to follow: Wash and Dry Your Feet Daily Use mild soaps Use warm water Pat your skin dry; do not rub. Thoroughly dry your feet. After washing, use lotion on your feet to prevent cracking. Do not put lotion between your toes. Examine Your Feet Each Day Check the tops and bottoms of your feet. Have someone else look at your feet if you cannot see them. Check for dry, cracked skin. Look for blisters, cuts, scratches, or other sores. Check for redness, increased warmth, or tenderness when touching any area of your feet. Check for ingrown toenails, corns, and calluses. If you get a blister or sore from your shoes, do not pop it. Apply a bandage and wear a different pair of shoes. Take Care of Your Toenails Cut toenails after bathing, when they are soft. Cut toenails straight across and smooth with a nail file. Avoid cutting into the corners of toes. Do not cut cuticles. If you have neuropathy (or decreased sensation in your feet) a shotgun shell assembly machine operator should always cut your toenails. Be Careful When Exercising Walk and exercise in comfortable shoes. Do not exercise when you have open sores on your feet. Protect Your Feet With Shoes and Socks Never go barefoot. Always protect your feet by wearing shoes or hard-soled slippers or footwear. Avoid shoes with high heels and pointed toes. Avoid shoes that expose your toes or heels (such as open-toed shoes or sandals). These types of shoes increase your risk for injury and potential infections. Try on new footwear with the type of socks you usually wear. Do not wear new shoes for more than an hour at a time. Change your socks daily. Look and feel inside your shoes before putting them on to make sure there are no foreign objects or rough areas. Avoid tight socks. Wear natural-fiber socks (cotton, wool, or a cotton-wool blend). Wear special shoes if your health care provider recommends them. Wear shoes/boots that will protect your feet from various weather conditions (cold, moisture, etc.). Make sure your shoes fit properly. If you have neuropathy (nerve damage), you may not notice that your shoes are too tight. Perform the footwear test described below. Footwear Test Use this simple test to see if your shoes fit correctly: Stand on a piece of paper. (Make sure you are standing and not sitting, because your foot changes shape when you stand.) Trace the outline of your foot. Trace the outline of your shoe. Compare the tracings: Is the shoe too narrow? Is your foot crammed into the shoe? The shoe should be at least 1/2 inch longer than your longest toe and as wide as your foot. Proper Shoe Choices The following types of shoes are best for people with diabetes Closed toes and heels Leather uppers without a seam inside At least 1/2 inch extra space at the end of your longest toe Inside of shoe should be soft with no rough areas Outer sole should be made of stiff material Shoes should be at least as wide as your feet Tips for Foot Care in Diabetes Don't wait to treat a minor foot problem if you have diabetes. Follow your health care provider's guidelines and first aid guidelines. Report foot injuries and infections to your health care provider immediately. Check water temperature with your elbow, not your foot. Do not use a heating pad on your feet. Do not cross your legs. Do not self-treat your corns, calluses, or other foot problems. Go to your health care provider or shotgun shell assembly machine operator to treat these conditions. documented in this encounter [facility] 11-14-2024 Note HNO ID: [id number] Author: BRYAN AMATO, ? Service: ? Author Type: Physician Type: Progress Notes Filed: 11/14/2024 09:23 Note Text: Initial Office Visit Subjective: This 59 year old male presents to clinic for diabetic foot check. Patient has the following complaints: numbness in his feet. Patient admits to being diabetic for 5 years now . Patient +B/T/N in feet at this time. Patient +pain in legs when walking. No other pedal complaints at this time. No change in medications or medical history since last visit. PAIN EVALUATION 11/14/2024 0842 Pain Level: 5 Pain Location: Other: See Comment Description: Numbness Duration Units: Years Frequency: Continuous Intervention/Comfort measure: Relaxation;Reposition No results found for: HBA1C PCP: Reyes Gutiérrez CNP PAST MEDICAL HISTORY Diagnosis Date Arthritis Diabetes (HCC) Current Outpatient Medications Medication Sig cetirizine (ZYRTEC) 10 mg tablet Take 1 tablet by mouth every afternoon. FREESTYLE CLAUDIA 2 SENSOR kit PATIENT CHECKS BLOOD GLUCOSE 2-5X/DAY. ON INJECTABLE MEDICATION. MOUNJARO 10 mg/0.5 mL pen injector carvedilol (COREG) 25 mg tablet Take 25 mg by mouth twice daily with meals. losartan (COZAAR) 25 mg tablet Take 25 mg by mouth once daily. omeprazole (PRILOSEC) 20 mg capsule Take 20 mg by mouth once daily. No current facility-administered medications for this visit. ALLERGIES No Known Allergies No past surgical history on file. FAMILY HISTORY Problem Relation Age of Onset Cancer Mother Cancer Brother Social History Tobacco Use Smoking status: Former Smokeless tobacco: Former Substance Use Topics Alcohol use: Not Currently Drug use: Never REVIEW OF SYSTEMS GENERAL: Negative for Malaise, significant weight loss, fever RESPIRATORY: Negative for cough, wheezing and shortness of breath CARDIOVASCULAR: Negative for chest pain, leg swelling and palpitations GI: Negative for abdominal discomfort, blood in stools or black stools and change in bowel habits : Negative for dysuria, frequency and incontinence MUSCULOSKELETAL: Negative for joint pain or swelling, back pain, and muscle pain. SKIN: Negative for lesions, rash, and itching. HEMATOLOGY/LYMPHOLOGY Negative for prolonged bleeding, bruising easily, and swollen nodes. ENDOCRINE: Negative for cold or heat intolerance, polyuria, polydipsia and goiter. NEURO: negative The remainder of the review of systems is noncontributory. Objective: Patient presents to clinic ambulating in [facility] Constitutional: Pt is a well developed 59 year old male who is alert, oriented, cooperative and in no apparent distress. Eyes: Following during examination. No redness or drainage. Respiratory: RR normal and nonlabored. Even breathing. No evidence of distress. Psychology: Patient is engaged during conversation. Normal affect and mood. Does not appear depressed or anxious. Vasc: DP and PT pulses are faintly palpable bilateral. CFT is less than 5 seconds bilateral. Skin temperature is warm to cool proximal to distal bilateral. There is no edema or varicosities noted. Hair growth present. Neuro: Protective sensation is intact to the foot and toes when tested with the 5.07 SWM bilateral. Vibratory sensation is absent at the hallux bilateral. + Significant neurological defecits. Derm: Inspection and palpation performed. Nails 1-5 b/l are normal in length and thickness. Skin is of normal turgor and texture. Hyperkeratosis noted to not present. Noninfected abrasion of left midfoot. NO ulcerations, scars, verruca or other lesions noted. Ortho: Ankle joint DF is full with the knee extended and full with knee flexed. No pain or crepitus noted. STJ, MTJ ROM are full and free of pain or crepitus. Muscle strength is 5/5 for dorsiflexors, plantarflexors, inverters, everters. Digital deformities include none. Assessment: (E11.42) Diabetic polyneuropathy associated with type 2 diabetes mellitus (HCC) (primary encounter diagnosis) (R09.89) Diminished pulses in lower extremity (S90.812A) Abrasion of left foot, initial encounter Plan: 1. Patient was seen and evaluated. 2. Patient was instructed on the continued importance of diabetic foot care along with proper diet and keeping their blood sugar under control to prevent complications. Stressed the importance of avoiding barefoot walking, wearing good shoes and inspection of feet. Instructions given both oral and written. 3. Patient has faint pulses. Will check pvr 4. Discussed superficial abrasion. No infection. Recommend topical antibiotic. If this is not healed within one week, call for follow-up Bryan Amato DPM [facility] 11-14-2024 History of Presen t illness Narrative Initial Office Visit Subjective: This 59 year old male presents to clinic for diabetic foot check. Patient has the following complaints: numbness in his feet. Patient admits to being diabetic for 5 years now . Patient +B/T/N in feet at this time. Patient +pain in legs when walking. No other pedal complaints at this time. No change in medications or medical history since last visit. PAIN EVALUATION 11/14/2024 0842 Pain Level: 5 Pain Location: Other: See Comment Description: Numbness Duration Units: Years Frequency: Continuous Intervention/Comfort measure: Relaxation;Reposition No results found for: HBA1C PCP: Reyes Gutiérrez CNP PAST MEDICAL HISTORY Diagnosis Date Arthritis Diabetes (HCC) Current Outpatient Medications Medication Sig cetirizine (ZYRTEC) 10 mg tablet Take 1 tablet by mouth every afternoon. FREESTYLE CLAUDIA 2 SENSOR kit PATIENT CHECKS BLOOD GLUCOSE 2-5X/DAY. ON INJECTABLE MEDICATION. MOUNJARO 10 mg/0.5 mL pen injector carvedilol (COREG) 25 mg tablet Take 25 mg by mouth twice daily with meals. losartan (COZAAR) 25 mg tablet Take 25 mg by mouth once daily. omeprazole (PRILOSEC) 20 mg capsule Take 20 mg by mouth once daily. No current facility-administered medications for this visit. ALLERGIES No Known Allergies No past surgical history on file. FAMILY HISTORY Problem Relation Age of Onset Cancer Mother Cancer Brother Social History Tobacco Use Smoking status: Former Smokeless tobacco: Former Substance Use Topics Alcohol use: Not Currently Drug use: Never REVIEW OF SYSTEMS GENERAL: Negative for Malaise, significant weight loss, fever RESPIRATORY: Negative for cough, wheezing and shortness of breath CARDIOVASCULAR: Negative for chest pain, leg swelling and palpitations GI: Negative for abdominal discomfort, blood in stools or black stools and change in bowel habits : Negative for dysuria, frequency and incontinence MUSCULOSKELETAL: Negative for joint pain or swelling, back pain, and muscle pain. SKIN: Negative for lesions, rash, and itching. HEMATOLOGY/LYMPHOLOGY Negative for prolonged bleeding, bruising easily, and swollen nodes. ENDOCRINE: Negative for cold or heat intolerance, polyuria, polydipsia and goiter. NEURO: negative The remainder of the review of systems is noncontributory. Objective: Patient presents to clinic ambulating in [facility] Constitutional: Pt is a well developed 59 year old male who is alert, oriented, cooperative and in no apparent distress. Eyes: Following during examination. No redness or drainage. Respiratory: RR normal and nonlabored. Even breathing. No evidence of distress. Psychology: Patient is engaged during conversation. Normal affect and mood. Does not appear depressed or anxious. Vasc: DP and PT pulses are faintly palpable bilateral. CFT is less than 5 seconds bilateral. Skin temperature is warm to cool proximal to distal bilateral. There is no edema or varicosities noted. Hair growth present. Neuro: Protective sensation is intact to the foot and toes when tested with the 5.07 SWM bilateral. Vibratory sensation is absent at the hallux bilateral. + Significant neurological defecits. Derm: Inspection and palpation performed. Nails 1-5 b/l are normal in length and thickness. Skin is of normal turgor and texture. Hyperkeratosis noted to not present. Noninfected abrasion of left midfoot. NO ulcerations, scars, verruca or other lesions noted. Ortho: Ankle joint DF is full with the knee extended and full with knee flexed. No pain or crepitus noted. STJ, MTJ ROM are full and free of pain or crepitus. Muscle strength is 5/5 for dorsiflexors, plantarflexors, inverters, everters. Digital deformities include none. Assessment: (E11.42) Diabetic polyneuropathy associated with type 2 diabetes mellitus (HCC) (primary encounter diagnosis) (R09.89) Diminished pulses in lower extremity (S90.812A) Abrasion of left foot, initial encounter Plan: 1. Patient was seen and evaluated. 2. Patient was instructed on the continued importance of diabetic foot care along with proper diet and keeping their blood sugar under control to prevent complications. Stressed the importance of avoiding barefoot walking, wearing good shoes and inspection of feet. Instructions given both oral and written. 3. Patient has faint pulses. Will check pvr 4. Discussed superficial abrasion. No infection. Recommend topical antibiotic. If this is not healed within one week, call for follow-up Bryan Amato DPM AMB ROOMING INTAKE FLOWSHEET DATA Risk Screening Do you have concerns about personal safety or safety in the home?: No Pain Pain Level: 5 Pain Location: Other: See Comment Description: Numbness Duration Units: Years Frequency: Continuous Intervention/Comfort measure: Relaxation, Reposition Patient presents with: Left Foot - New, diabetic foot exam Right Foot - New, diabetic foot exam Dianna Rahman LPN documented in this encounter [facility] 11-14-2024 Note HNO ID: [id number] Author: DIANNA RAHMAN LPN Service: ? Author Type: LICENSED NURSE Type: Progress Notes Filed: 11/14/2024 09:23 Note Text: AMB ROOMING INTAKE FLOWSHEET DATA Risk Screening Do you have concerns about personal safety or safety in the home?: No Pain Pain Level: 5 Pain Location: Other: See Comment Description: Numbness Duration Units: Years Frequency: Continuous Intervention/Comfort measure: Relaxation, Reposition Patient presents with: Left Foot - New, diabetic foot exam Right Foot - New, diabetic foot exam Dianna Rahman LPN [facility] 08-12-2021 Instructions Bryan Amato - 08/12/2021 9:48 AM EDT Diabetes Foot Care Instructions When you have diabetes, proper foot care is very important. Poor foot care may lead to amputation of a foot or leg. As a person with diabetes, you are more vulnerable to foot problems, because diabetes can damage your nerves and reduce blood flow to your feet. Here are some diabetes foot care tips to follow: Wash and Dry Your Feet Daily Use mild soaps Use warm water Pat your skin dry; do not rub. Thoroughly dry your feet. After washing, use lotion on your feet to prevent cracking. Do not put lotion between your toes. Examine Your Feet Each Day Check the tops and bottoms of your feet. Have someone else look at your feet if you cannot see them. Check for dry, cracked skin. Look for blisters, cuts, scratches, or other sores. Check for redness, increased warmth, or tenderness when touching any area of your feet. Check for ingrown toenails, corns, and calluses. If you get a blister or sore from your shoes, do not pop it. Apply a bandage and wear a different pair of shoes. Take Care of Your Toenails Cut toenails after bathing, when they are soft. Cut toenails straight across and smooth with a nail file. Avoid cutting into the corners of toes. Do not cut cuticles. If you have neuropathy (or decreased sensation in your feet) a shotgun shell assembly machine operator should always cut your toenails. Be Careful When Exercising Walk and exercise in comfortable shoes. Do not exercise when you have open sores on your feet. Protect Your Feet With Shoes and Socks Never go barefoot. Always protect your feet by wearing shoes or hard-soled slippers or footwear. Avoid shoes with high heels and pointed toes. Avoid shoes that expose your toes or heels (such as open-toed shoes or sandals). These types of shoes increase your risk for injury and potential infections. Try on new footwear with the type of socks you usually wear. Do not wear new shoes for more than an hour at a time. Change your socks daily. Look and feel inside your shoes before putting them on to make sure there are no foreign objects or rough areas. Avoid tight socks. Wear natural-fiber socks (cotton, wool, or a cotton-wool blend). Wear special shoes if your health care provider recommends them. Wear shoes/boots that will protect your feet from various weather conditions (cold, moisture, etc.). Make sure your shoes fit properly. If you have neuropathy (nerve damage), you may not notice that your shoes are too tight. Perform the footwear test described below. Footwear Test Use this simple test to see if your shoes fit correctly: Stand on a piece of paper. (Make sure you are standing and not sitting, because your foot changes shape when you stand.) Trace the outline of your foot. Trace the outline of your shoe. Compare the tracings: Is the shoe too narrow? Is your foot crammed into the shoe? The shoe should be at least 1/2 inch longer than your longest toe and as wide as your foot. Proper Shoe Choices The following types of shoes are best for people with diabetes Closed toes and heels Leather uppers without a seam inside At least 1/2 inch extra space at the end of your longest toe Inside of shoe should be soft with no rough areas Outer sole should be made of stiff material Shoes should be at least as wide as your feet Tips for Foot Care in Diabetes Don't wait to treat a minor foot problem if you have diabetes. Follow your health care provider's guidelines and first aid guidelines. Report foot injuries and infections to your health care provider immediately. Check water temperature with your elbow, not your foot. Do not use a heating pad on your feet. Do not cross your legs. Do not self-treat your corns, calluses, or other foot problems. Go to your health care provider or shotgun shell assembly machine operator to treat these conditions. documented in this encounter [facility] 08-12-2021 History of Presen t illness Narrative Consultation requested by Dr. Gutiérrez for an opinion regarding diabetic foot exam. My final recommendations will be communicated back to the requesting physician by way of shared Medical record or letter to requesting physician via US mail. Initial Office Visit Subjective: This 56 year old male presents to clinic for diabetic foot check. Patient has the following complaints: numbness and stinging in his foot. Patient states that the numbness in his foot comes and goes. Patient is not currently taking any medication for the pain. Patient admits to being diabetic for 1-2 years now. Patient +B/T/N in feet at this time. Patient -pain in legs when walking. No other pedal complaints at this time. No change in medications or medical history since last visit. PAIN EVALUATION No data found in the last 1 encounters. No results found for: HBA1C PCP: Reyes Gutiérrez CNP PAST MEDICAL HISTORY Diagnosis Date Arthritis Diabetes (HCC) Current Outpatient Medications Medication Sig metFORMIN ER (GLUMETZA) 1,000 mg 24 hr tablet Take 1,000 mg by mouth daily with breakfast. carvedilol (COREG) 25 mg tablet Take 25 mg by mouth twice daily with meals. losartan (COZAAR) 25 mg tablet Take 25 mg by mouth once daily. atorvastatin (LIPITOR) 10 mg tablet Take 10 mg by mouth once daily. omeprazole (PRILOSEC) 20 mg capsule Take 20 mg by mouth once daily. No current facility-administered medications for this visit. ALLERGIES No Known Allergies History reviewed. No pertinent surgical history. FAMILY HISTORY Problem Relation Age of Onset Cancer Mother Cancer Brother Social History Tobacco Use Smoking status: Former Smoker Smokeless tobacco: Former User Substance Use Topics Alcohol use: Not Currently Drug use: Not on file REVIEW OF SYSTEMS GENERAL: Negative for Malaise, significant weight loss, fever RESPIRATORY: Negative for cough, wheezing and shortness of breath CARDIOVASCULAR: Negative for chest pain, leg swelling and palpitations GI: Negative for abdominal discomfort, blood in stools or black stools and change in bowel habits : Negative for dysuria, frequency and incontinence MUSCULOSKELETAL: Negative for joint pain or swelling, back pain, and muscle pain. SKIN: Negative for lesions, rash, and itching. HEMATOLOGY/LYMPHOLOGY Negative for prolonged bleeding, bruising easily, and swollen nodes. ENDOCRINE: Negative for cold or heat intolerance, polyuria, polydipsia and goiter. NEURO: + numbness in foot The remainder of the review of systems is noncontributory. Objective: Patient presents to clinic ambulating in boots Constitutional: Pt is a well developed 56 year old male who is alert, oriented, cooperative and in no apparent distress. Eyes: Following during examination. No redness or drainage. Respiratory: RR normal and nonlabored. Even breathing. No evidence of distress. Psychology: Patient is engaged during conversation. Normal affect and mood. Does not appear depressed or anxious. Vasc: DP and PT pulses are palpable bilateral. CFT is less than 5 seconds bilateral. Skin temperature is warm to warm proximal to distal bilateral. There is no edema or varicosities noted. Hair growth present. Neuro: Protective sensation is intact to the foot and toes when tested with the 5.07 SWM bilateral. Vibratory sensation is decreased at the hallux bilateral. + Significant neurological defecits. Derm: Inspection and palpation performed. Nails 1-5 b/l are normal in length and thickness. Skin is of normal turgor and texture. Hyperkeratosis noted to not present. NO ulcerations, scars, verruca or other lesions noted. Ortho: Ankle joint DF is full with the knee extended and full with knee flexed. No pain or crepitus noted. STJ, MTJ ROM are full and free of pain or crepitus. Muscle strength is 5/5 for dorsiflexors, plantarflexors, inverters, everters. Digital deformities include none xrays show no acute findings. Assessment: (E08.41) Diabetic mononeuropathy associated with diabetes mellitus due to underlying condition (HCC) (primary encounter diagnosis) Plan: 1. Patient was seen and evaluated. 2. Patient was instructed on the continued importance of diabetic foot care along with proper diet and keeping their blood sugar under control to prevent complications. Instructions given both oral and written. 3. Patient does have numbness. This could be from spinal stenosis or related to neuropathy. It does not cause him pain. If pain were to develop, neurontin vs lyrica could be an option. Otherwise, I would monitor for now. 4. Offered and discussed diabetic shoes. He has elected to hold on this for now. Bryan Amato DPM AMB ROOMING INTAKE FLOWSHEET DATA Patient presents with: Left Foot - New, diabetic foot exam Right Foot - New, diabetic foot exam documented in this encounter [facility] Evaluation + Plan note No data available for this section [facility] Evaluation note Diagnosis Diabetic mononeuropathy associated with diabetes mellitus due to underlying condition (HCC)- Primary [facility] Diagnosis Onset Date Resolution Status Frequent unifocal premature ventricular contractions chronic Non-ischemic cardiomyopathy [facility] Work Phone: Evaluation note* Diagnosis Onset Date Resolution Status Spinal stenosis [facility] Work Phone: Evaluation note* Diagnosis Onset Date Resolution Status Frequent unifocal premature ventricular contractions chronic Hyperlipidemia chronic Non-ischemic cardiomyopathy [facility] Work Phone: Evaluation note* Diagnosis Pain- Primary Generalized pain documented in this [facility]* Diagnosis Diabetic polyneuropathy associated with type 2 diabetes mellitus (HCC)- Primary Diminished pulses in lower extremity Other symptoms involving cardiovascular system Abrasion of left foot, initial encounter documented in [facility] Discharge instructions No data available for this section [facility] Hospital Discharge instructionsAmbulatory Orders* Physical Therapy Referral Location: None [facility] Work Phone: Progress note No data available for this section [facility] Reason for referral (narrative)* Diagnostic Procedure Only (Routine) - Authorized Specialty Diagnoses / Procedures Referred By Contac t Referred To Contact XR IMAGING Diagnoses Pain Procedures XR FOOT GENERAL 3V AP/LAT/OBL BILATERAL RADEX FOOT COMPLETE MINIMUM 3 VIEWS Bryan Amato [address] [address] [place] [id number] Referral ID Status Reason Start Date Expiration Date Visits Requested Visits Authorized [id number] Authorized Auto-Generat ed Referral [facility]/2025 [facility] Procedure (Routine) - Authorized Specialty Diagnoses / Procedures Referred By Contac t Referred To Contact [facility] Diagnoses Diabetic polyneuropathy associated with type 2 diabetes mellitus (HCC) Diminished pulses in lower extremity Procedures PVR ANK PRESS VERA [facility] LAB NON-INVAS PHYSIOLOGIC STD EXTREMITY ART 2 LEVEL Bryan Amato [address] [address] [facility] [address] [place] [address] Referral ID Status Reason Start Date Expiration Date Visits Requested Visits Authorized [id number] Authorized Auto-Generat ed Referral 11/14/2024 11/14/2025 1 1 [facility] Summary Purpose Family History Relationship Condition Age at Onset Recorded Date/T edward Not Specified Asthma Unknown mother Malignant neoplasm of colon Unknown Diabetes mellitus Unknown brother Malignant neoplasm Unknown father Cardiac disease Unknown Advance Directives Advance Directive Response Recorded Date/ Time Advance Directives No August 8:21am Living Will No September 30 1:42pm Power of Mining Technician No September 30, 2020 1:42pm Advance Directive Response Recorded Date/ Time Advance Directives No March 23 2:50pm Living Will No March 23, 2023 2 :50pm Power of Mining Technician No March 23, 2023 2:50pm Advance Directive Response Recorded Date/ Time Advance Directives No March 23 1:50pm Living Will No March 23, 2023 1 :50pm Power of Mining Technician No March 23, 2023 1:50pm Chief Complaint and Reason for Visit Chief Complaint 9 M FU Reason for Visit Frequent unifocal pr emature ventricular contractions Non-ischemic cardiomyopathy Chief Complaint NO ORDER LUMBER SPINE Reason for Visit Spinal stenosis Chief Complaint 1 Y FU CARDIOMYOPATHY Amb Documentation Reason for Visit Frequent unifocal pr emature ventricular contractions Hyperlipidemia Non-ischemic cardiomyopathy Additional Source Comments (unrecognized sect ion and content) No Status Records FoundNo Status Records FoundNo Status Records FoundNo Status Records Found INFORMATION SOURCE (unrecogn ized section and content) DATE CREATED AUTHOR 01/23/2021 [facility] DATE CREATED AUTHOR AUTHOR'S ORGANIZ ATION 11/22/2022 [facility] DATE CREATED AUTHOR AUTHOR'S ORGANIZ ATION 11/13/2024 [facility] DATE CREATED AUTHOR AUTHOR'S ORGANIZ ATION 01/08/2025 [facility] Source Comments (unrecognize d section and content) In the event this informatio n is protected by the Federal Confidentiality of Alcohol and Drug Abuse Patient Records regulations: The Federal rules restrict any use of the information to criminally investigate or prosecute any alcohol or drug abuse patient.[facility] the event this information is protected by the Federal Confidentiality of Alcohol and Drug Abuse Patient Records regulations: The Federal rules restrict any use of the information to criminally investigate or prosecute any alcohol or drug abuse patient.[facility] the event this information is protected by the Federal Confidentiality of Alcohol and Drug Abuse Patient Records regulations: The Federal rules restrict any use of the information to criminally investigate or prosecute any alcohol or drug abuse patient.[facility] the event this information is protected by the Federal Confidentiality of Alcohol and Drug Abuse Patient Records regulations: The Federal rules restrict any use of the information to criminally investigate or prosecute any alcohol or drug abuse patient.[facility] Reason for Visit (unrecogniz ed section and content) Reason Comments New diabetic foot exam Reason Comments New diabetic foot exam Care Team (unrecognized sect ion and content) Care Team Personnel Name: FERNANDO PRECIADO MD Member Role: Primary Care Physician Address: Address: [place] [id number] Care Team Related Persons Name: MARLENE KASPER Care Teams (unrecognized sec tion and content) Team Status: Active Member Role Status Dates [facility] Primary Care Provider A ctive Team Status: Inactive Member Role Status Dates [facility] Primary Care Provider, Referring Provider Active Dr. John Estrada DO Attending Provider Active Team Status: Inactive Member Role Status Dates [facility] Primary Care Provider A ctive Denice Lewis FINANCIAL ADVOCATE, FINANCIAL ADVOCATE-C Attending Provider, Referrin g Provider Active Team Status: Inactive Member Role Status Dates [facility] Primary Care Provider, Referring Provider Active Bhavik Rios FINANCIAL ADVOCATE, FINANCIAL ADVOCATE-C Attending Provider Active Team Status: Active Member Role Status Dates [facility] Primary Care Provider A ctive Dr. Aftab Ryder MD Attending Provider Active Team Status: Active Member Role Status Dates [facility] Primary Care Provider A ctive Bhavik Rios FINANCIAL ADVOCATE, FINANCIAL ADVOCATE-C Attending Provider Active Team Status: Inactive Member Role Status Dates [facility] Primary Care Provider A ctive Bhavik Rios FINANCIAL ADVOCATE, FINANCIAL ADVOCATE-C Attending Provider, Referring Pro vider Active Team Status: Active Member Role Status Dates [facility] Primary Care Provider A ctive Dr. Aftab Ryder MD Attending Provider Active Bhavik Rios FINANCIAL ADVOCATE, FINANCIAL ADVOCATE-C Referring Provider Active Team Status: Inactive Member Role Status Dates [facility] Primary C are Provider, Attending Provider, Referring Provider Active Denice Lewis FINANCIAL ADVOCATE, FINANCIAL ADVOCATE-C Other Provider Active Cash Posting Representative Relationship Specialty Start Date End Date Reyes Gutiérrez CNP PCP - General Internal Medicine 07/29/21 Reyes Gutiérrez CNP Referring Internal Medicine 07/29/21 Denice Lewis NP [address] [place] [address] Referring Family Medicine 10/17/24 Cash Posting Representative Relationship Specialty Start Date End Date Reyes Gutiérrez CNP PCP - General Internal Medicine 07/29/21 Reyes Gutiérrez CNP Referring Internal Medicine 07/29/21 Denice Lewis NP [address] [place] [address] Referring Family Medicine 10/17/24 Cash Posting Representative Relationship Specialty Start Date End Date Reyes Gutiérrez CNP PCP - General Internal Medicine 07/29/21 Reyes Gutiérrez CNP Referring Internal Medicine 07/29/21 Denice Lewis NP [address] [place] [id number] Referring Family Medicine 10/17/24 FOR RECORDS PERTAINING TO PATIENTS WHO ARE OR HAVE BEEN ENROLLED IN A CHEMICAL DEPENDENCY/SUBSTANCEABUSE PROGRAM, SOME INFORMATION MAY BE OMITTED. This clinical summary was aggregated from multiple sources. Caution should be exercised in using it in the provision of clinical care. This summary normalizes information from multiple sources, and as a consequence, information in this document may materially change the coding, format and clinical context of patient data. In addition, data may be omitted in some cases. CLINICAL DECISIONS SHOULD BE BASED ON THE PRIMARY CLINICAL RECORDS. [employer] provides no warranty or guarantee of the accuracy or completeness of information in this document.
== END | disposition home or self-care (01) ==
LOC: VSLAB 10:35
PROVIDERS: PCP Nurse Practitioner Family; Visit Provider Nurse Practitioner Family
DX: Z12.5 Encounter for screening for malignant neoplasm of prostate (principal); E11.65 Type 2 diabetes mellitus with hyperglycemia; E78.5 Hyperlipidemia, unspecified; I10 Essential (primary) hypertension
CPT/HCPCS: 84153; 36415; 80053; 80061; 82043; 84443; 85025; G0103